=== PATIENT | female | born 1990 | race Caucasian/White ===

== ENCOUNTER → 2018-06-10 13:16 | Outpatient (CLI) | payer OTHER, SELFPAY ==
[2018-06-10 13:20] LABS: Adenovirus,PCR Not Detected (NotDetected); Bordetella Pertussis Not Detected (NotDetected); Chlamydophila Pneumoniae, PCR Not Detected (NotDetected); Coronavirus 229E Not Detected (NotDetected); Coronavirus NL63 Not Detected (NotDetected); Coronavirus OC43 Not Detected (NotDetected); Coronovirus HKU1,PCR Not Detected (NotDetected); Human Metapneumovirus Not Detected (NotDetected); Influenza A, PCR Not Detected (NotDetected); Influenza AH1, 2009 Not Detected (NotDetected); Influenza AH1, PCR Not Detected (NotDetected); Influenza AH3,PCR Not Detected (NotDetected); Influenza B, PCR Not Detected (NotDetected); Microscopic, Urine URINE MICROSCOPIC (MICROSCOPIC); Mycoplasma Pneumoniae, PCR Not Detected (NotDetected); Parainfluenza 1, PCR Not Detected (NotDetected); Parainfluenza 2, PCR Not Detected (NotDetected); Parainfluenza 3, PCR Not Detected (NotDetected); Parainfluenza 4, PCR Not Detected (NotDetected); Respiratory Syncytial Virus Not Detected (NotDetected); Rhinovirus/Enterovirus Not Detected (NotDetected)
[2018-06-10 13:41] LABS: Appearance,Urine CLEAR (Clear); Bilirubin,Urine Negative (Negative); Blood, Urine Negative (Negative); Color,Urine YELLOW (Yellow); Glucose,Urine (UA) Negative (Negative); Ketones,Urine Negative (Negative); Leukocyte Esterase,Urine Negative (Negative); Nitrate,Urine Negative (Negative); PH,Urine 6.5 (5.0-8.5); Protein,Urine Negative (Negative); Specific Gravity, Urine 1.015 (1.005-1.030); Urobilinogen,Urine 0.2 EU/dl (0.2)
[2018-06-10 13:43] LABS: Basophils % 0.3 % (0.1-2.0); Eosinophils # 0.2 K/mm3 (0.0-0.4); Eosinophils % 1.5 % (0.1-12.0); Hematocrit 38.4 % (37.0-47.0); Hemoglobin 12.8 g/dL (12.2-16.2); Lymphocytes # 1.4 K/mm3 (0.7-4.5); Lymphocytes % 11.2 % (10-50); Mean Corpuscular HGB Conc 33.4 g/dL (31.8-35.4); Mean Corpuscular Volume 83.8 fl (81-99); Mean Platelet Volume 6.7 fl (7.4-10.4); Monocytes # 0.4 K/mm3 (0.1-1.0); Neutrophils # 10.6 K/mm3 (1.8-7.8); Neutrophils % 83.9 % (37.0-80.0); Platelet Count 286 K/mm3 (142-424); Red Blood Count 4.58 M/mm3 (4.20-5.40); Red Cell Distribution Width 13.3 % (11.5-17.5); White Blood Count 12.7 K/mm3 (4.8-10.8)
[2018-06-10 13:48] LABS: Monoscreen (Rapid) Negative (Negative)
[2018-06-10 14:07] LABS: Bacteria,Urine Trace /lpf
[2018-06-10 14:21] LABS: Alanine Aminotransferase 28 U/L (12-78); Albumin Level 3.4 gm/dL (3.4-5.0); Albumin/Globulin Ratio 0.9 (1.1-1.8); Alkaline Phosphatase 71 U/L (46-116); Anion Gap 18.8 mEq/L (5-15); Aspartate Amino Transferase 13 U/L (15-37); Bilirubin,Total 0.3 mg/dL (0.2-1.0); Blood Urea Nitrogen 8 mg/dL (7-18); Calcium 8.6 mg/dL (8.5-10.1); Carbon Dioxide 20 mmol/L (21.0-32.0); Chloride 100 mmol/L (98-107); Creatinine,Serum 0.81 mg/dL (0.55-1.02); Estimated Glomerular Filt Rate 85 ml/min (>60); GFR (African American) 103 ML/MIN (>60); Globulin 3.9 gm/dl (1.3-3.2); Glucose 118 mg/dL (74-106); Potassium 3.8 mmoL/L (3.5-5.1); Sodium 135 mmol/L (136-145); Total Protein,Serum 7.3 gm/dL (6.4-8.2)
== END ==
PROVIDERS: Visit Provider Nurse Practitioner Family
DX: R50.9 Fever, unspecified (principal); N39.0 Urinary tract infection, site not specified; J06.9 Acute upper respiratory infection, unspecified
CPT/HCPCS: 36415; 80053; 81001; 85025; 86318; 87486; 87581; 87633; 87798

== ENCOUNTER → 2018-06-26 18:14 | Outpatient (CLI) | payer OTHER, SELFPAY ==
[2018-06-26 21:13] LABS: Amphetamine/Metha Screen,Urine Negative ng/mL (<1000); Barbiturates Screen,Urine Negative ng/mL (<200); Benzodiazepines Screen,Urine Negative ng/mL (<200); Cannabinoid Screen,Urine Negative ng/mL (<50); Cocaine Screen,Urine Negative ng/mL (<300); Methadone Screen,Urine Negative ng/mL (<300); Opiate Screen,Urine Negative ng/mL (<300); Phencyclidine Screen,Urine Negative ng/mL (<25)
[2018-06-29 13:59] LABS: Buprenorphine, Urine Negative ng/mL (Cutoff=10)
== END ==
PROVIDERS: Visit Provider Nurse Practitioner Obstetrics & Gynecology
DX: Z3A.11 11 weeks gestation of pregnancy (principal)
CPT/HCPCS: 80305; 80307

== ENCOUNTER 2018-08-11 03:51 | Observation (INO) ==
[2018-08-11 04:25] LABS: Basophils # 0.1 K/mm3 (0-0.2); Basophils % 0.4 % (0.1-2.0); Eosinophils # 0.2 K/mm3 (0.0-0.4); Eosinophils % 1.4 % (0.1-12.0); Hematocrit 34.6 % (37.0-47.0); Hemoglobin 11.8 g/dL (12.2-16.2); Lymphocytes # 3.1 K/mm3 (0.7-4.5); Lymphocytes % 21.6 % (10-50); Mean Corpuscular HGB Conc 34.2 g/dL (31.8-35.4); Mean Corpuscular Hemoglobin 27.8 pg (27.0-31.2); Mean Corpuscular Volume 81.2 fl (81-99); Mean Platelet Volume 6.4 fl (7.4-10.4); Monocytes # 0.6 K/mm3 (0.1-1.0); Monocytes % 4.3 % (1.7-9.3); Neutrophils # 10.5 K/mm3 (1.8-7.8); Neutrophils % 72.3 % (37.0-80.0); Platelet Count 326 K/mm3 (142-424); Red Blood Count 4.26 M/mm3 (4.20-5.40); Red Cell Distribution Width 13.4 % (11.5-17.5); White Blood Count 14.5 K/mm3 (4.8-10.8)
--- NOTE | 2018-08-11 08:25 | History & Physical Report ---
OB - H&P: HPI Antepartum - History of Present Illness Chief complaint: Vaginal bleeding, cramps, placenta previa History of present illness: She is a 27-year-old 3 para 2 at 18 weeks gestational age. She has been having bleeding for the last 3 weeks and began having heavier bleeding in the middle of the night. She has been experiencing severe cramps every 1 minute as well since about 4 AM. As a result of that she came into labor and delivery. She has been followed at [facility] for placenta previa. - History of Present Criteria for establishing EDC:: LMP confirmed by 1st trimester US care: good care Ultrasounds: normal 1st trimester US Obstetrical complications: other (Placenta previa, retained Mirena IUD) [facility] History I have reviewed the patient's past medical history: Yes Medical History: Reports:: Kidney Stones, Urinary Tract Infection Have you ever received a pneumonia vaccine?: No Have you received a flu vaccine this season?: Yes Laterality Cases: Bilateral: Tonsillectomy Other Surgeries: Yes: Diagnostic Lap. No: Amputation: No Fractures: Yes - *Social History Smoking Status: Never smoker Alcohol Intake: never Substance Use Type: denies use Occupational Status: employed Housing: house Household Members: family *Family Hx:: No significant family history Para: 2 Meds Home Medications Medication Instructions Recorded Confirmed Type Pnv Cmb#21/Iron/Folic Acid 1 each PO DAILY 06/08/18 08/11/18 History [ Complete Caplet] Terconazole 1 appful VAGINAL QHS 08/11/18 08/11/18 History Allergies Allergy/AdvReac Type Severity Reaction Status Date / Time erythromycin base Allergy Unknown -- Verified 07/30/18 08:56 OB - H&P: Exam - Physical Exam Vital signs: Temp Pulse Resp BP Pulse Ox 97.8 F 88 20 139/108 H 97 08/11/18 04:30 08/11/18 04:30 08/11/18 04:30 08/11/18 04:30 08/11/18 04:30 - Constitutional no acute distress - Routine HEENT Exam Head: Present: normocephalic Eye: Present: EOMI, PERRL ENT: Present: mucous membranes moist - Routine Neck Exam Present: supple, full ROM - Routine Respiratory Exam Absent: accessory muscle use (good air entry bilaterally), respiratory distress, wheezes, crackles - Routine Cardiovascular Exam Present: RRR. Absent: murmur - Routine Abdominal Exam Present: soft, normoactive bowel sounds. Absent: tenderness, distended, guarding - Routine Rectal Exam Patient deferred: visual exam, digital exam - Routine Exam Patient deferred: external exam, groin exam, perineal exam - Routine Extremities Exam Present: full ROM. Absent: cyanosis, edema - Routine Skin Exam Present: intact. Absent: cyanosis - Routine Neurological Exam Present: alert, oriented X3 - Routine Psychiatric Exam Present: normal affect OB - Results - Labs Labs: Short CBC 08/11/18 Range/Units 04:10 WBC 14.5 H (4.8-10.8) K/mm3 Hgb 11.8 L (12.2-16.2) g/dL Hct 34.6 L (37.0-47.0) % Plt Count 326 (142-424) K/mm3 OB - A/P Antepartum (1) Antepartum bleeding, second trimester Current visit: Yes Status: Acute (2) Placenta previa antepartum in second trimester Current visit: Yes Status: Acute (3) labor in second trimester without delivery Current visit: Yes Status: Acute - Additional Plan Planning to breastfeed?: Yes Plan: expectant management Additional Information:: She came in with increased vaginal bleeding as result of her placenta previa. T he bleeding has now somewhat settled. She has had bleeding for about 3 weeks. She has received Brethine for contractions and this seemed to help. She also received some Stadol which help with her discomfort. We will plan to observe her for the next 24 hours and see how she does. We have an ultrasound ordered for this morning as well.
[2018-08-11 11:48] LABS: Microscopic, Urine URINE MICROSCOPIC (MICROSCOPIC)
[2018-08-11 12:15] LABS: Appearance,Urine CLEAR (Clear); Bilirubin,Urine Negative (Negative); Blood, Urine 3+ (Negative); Color,Urine YELLOW (Yellow); Glucose,Urine (UA) Negative (Negative); Ketones,Urine Negative (Negative); Leukocyte Esterase,Urine 2+ (Negative); Protein,Urine Negative (Negative); Specific Gravity, Urine <= 1.005 (1.005-1.030); Urobilinogen,Urine 0.2 EU/dl (0.2)
[2018-08-11 12:33] LABS: Bacteria,Urine 3+ /lpf; WBC,Urine 20-50 #/hpf (0-3)
[2018-08-11 23:40] VITALS: BP 119/79
--- NOTE | 2018-08-12 08:13 | Discharge Summary ---
General - General Admission date:: 08/11/18 Discharge date: 08/12/18 HPI HPI: A 27-year-old 3 para 2 at 18 weeks who has placenta previa. She was having bleeding and as a result of that was admitted for observation. Hospital Course Hospital Course: She was having bleeding and contractions and received Brethine. We continue to watch her and the bleeding continues however just a small amount. Ultrasound showed that the baby had showed normal growth with the placenta marginal but away from the cervical os. She has an appointment with [facility] this morning. Objective Vital signs: Temp Pulse Resp BP Pulse Ox 98.0 F 89 18 119/79 97 08/11/18 20:11 08/11/18 20:11 08/11/18 20:11 08/11/18 20:11 08/11/18 20:11 no acute distress Results Labs on day of discharge: Labs from last 24 hours 08/11/18 07:45 Urine Color Yellow Urine Appearance Clear Urine pH 7.0 Ur Specific [place] <= 1.005 Urine Protein Negative Urine Glucose (UA) Negative Urine Ketones Negative Urine Blood 3+ Urine Nitrate Negative Urine Bilirubin Negative Urine Urobilinogen 0.2 Ur Leukocyte Esterase 2+ A Urine RBC 10-20 Urine WBC 20-50 Ur Squamous Epith Cells 3-5 Urine Bacteria 3+ DS: Diagnosis - Discharge Diagnosis (1) Antepartum bleeding, second trimester Status: Acute (2) Placenta previa antepartum in second trimester Status: Acute (3) labor in second trimester without delivery Status: Acute Discharge Plan - Patient Discharge Instructions ACTIVITY: No heavy lifting DIET: continue same diet - Follow up Plan Disposition: Home, Self-Snf Medications: Home Medications Medication Instructions Recorded Confirmed Type Pnv Cmb#21/Iron/Folic Acid 1 each PO DAILY 06/08/18 08/11/18 History [ Complete Caplet] Terconazole 1 appful VAGINAL QHS 08/11/18 08/11/18 History Prescriptions/Medication Reconciliation: Continue Terconazole 1 appful VAGINAL QHS Pnv Cmb#21/Iron/Folic Acid [ Complete Caplet] 1 each PO DAILY
== END 2018-08-12 09:15 | disposition home or self-care (01) ==
LOC: OB 03:51 → OBOUT 03:51 → OB 03:59
PROVIDERS: ADMIT Nurse Practitioner Obstetrics & Gynecology; ATTEND Nurse Practitioner Obstetrics & Gynecology
CPT/HCPCS: 76805; 81001; 85025; 86850; 87086; 96360; 96372; G0378; J0595

== ENCOUNTER 2018-08-19 18:45 | Observation (INO) ==
--- NOTE | 2018-08-19 19:40 | History & Physical Report ---
OB - H&P: HPI Antepartum - History of Present Illness Chief complaint: Oligohydramnios, placenta previa, delivery History of present illness: She is a 27-year-old 3 para 2 who is 19 weeks gestation. She had a Mirena IUD inserted a urine test is negative. It was felt that she was just a few days when the IUD was inserted. To remove the IUD a few weeks later when we found out that she would. However the strings were not with and the IUD on ultrasound was as of the uterus. As a result of that we elected to have it in place. We had a consult at [facility] and they attempted to remove the IUD and were not successful. She separately had placenta previa and vaginal bleeding. It was noted that she had a low fluid last week and was admitted to the [facility] as a second opinion. They also felt that the membranes had ruptured. The fetus was in the breech presentation. Tonight she felt some thing in the vagina and on arrival here at the hospital the fetus' body and legs were noted to be outside the vagina. - History of Present Criteria for establishing EDC:: LMP confirmed by 1st trimester US care: good care Ultrasounds: normal 1st trimester US Obstetrical complications: other - Labs Blood type: O (+) positive [facility] History I have reviewed the patient's past medical history: Yes Medical History: Reports:: Kidney Stones, Urinary Tract Infection Have you ever received a pneumonia vaccine?: No Have you received a flu vaccine this season?: No Laterality Cases: Bilateral: Tonsillectomy Other Surgeries: Yes: Diagnostic Lap. No: Amputation: No Fractures: Yes - *Social History Smoking Status: Never smoker Alcohol Intake: never Substance Use Type: denies use Occupational Status: employed Housing: house Household Members: family Family Hx:: No significant family history Meds Home Medications Medication Instructions Recorded Confirmed Type Pnv Cmb#21/Iron/Folic Acid 1 each PO DAILY 06/08/18 08/11/18 History [ Complete Caplet] Terconazole 1 appful VAGINAL QHS 08/11/18 08/11/18 History azithromycin 250 mg tablet 250 mg PO DAILY #36 tab 08/12/18 Rx nitrofurantoin macrocrystal 100 mg 100 mg PO BID #20 cap 08/12/18 Rx capsule Allergies Allergy/AdvReac Type Severity Reaction Status Date / Time erythromycin base Allergy Unknown -- Verified 07/30/18 08:56 OB - H&P: Exam - Constitutional no acute distress - Routine HEENT Exam Head: Present: normocephalic Eye: Present: EOMI, PERRL ENT: Present: mucous membranes moist - Routine Neck Exam Present: supple, full ROM - Routine Respiratory Exam Absent: accessory muscle use (good air entry bilaterally), respiratory distress, wheezes, crackles - Routine Cardiovascular Exam Present: RRR. Absent: murmur - Routine Abdominal Exam Present: soft, normoactive bowel sounds. Absent: tenderness, distended, guarding - Routine Rectal Exam Patient deferred: visual exam, digital exam - Routine Exam Patient deferred: external exam, groin exam, perineal exam - Routine Extremities Exam Present: full ROM. Absent: cyanosis, edema - Routine Skin Exam Present: intact. Absent: cyanosis - Routine Neurological Exam Present: alert, oriented X3 - Routine Psychiatric Exam Present: normal affect OB - A/P Antepartum (1) delivery without spontaneous labor Current visit: Yes Status: Acute (2) Antepartum bleeding, second trimester Current visit: No Status: Acute (3) Placenta previa antepartum in second trimester Current visit: No Status: Acute (4) Vaginal bleeding before 22 weeks gestation Current visit: No Status: Acute - Additional Plan Planning to breastfeed?: No Plan: induction Additional Information:: On arrival at the hospital the legs were outside the vagina. She will receive the oxytocin to deliver the rest of the 's body.
--- NOTE | 2018-08-19 19:46 | Procedure Note ---
- Delivery Note Delivery Date:: 08/19/18 Delivery Time:: 19:25 Anesthesia Type: None Was labor medically induced?: No Induction method: none Infant delivered prior to 39 weeks?: Yes Justification for early elective delivery:: Demise Gender: Male at 1 minute: 0 at 5 minutes: 0 Suction Catheter Type: Sterile Catheter Delivery Procedure:: She came into the hospital with spontaneous delivery of the body. She subsequently received IV oxytocin and then spontaneously delivered the head. The fetus was extremely small. There was no movement or heart rate activity. This consistent with a 19-week fetus. We are awaiting the delivery of the placenta.
[2018-08-20 06:45] LABS: Hematocrit 32.7 % (37.0-47.0); Hemoglobin 11.2 g/dL (12.2-16.2)
[2018-08-20 08:33] VITALS: BP 114/70
--- NOTE | 2018-08-20 10:20 | Progress Note ---
Internal Medicine - PN: Subj *Date: 08/20/18 *Time: 10:19 Interval history: She is doing well this morning. Her lochia is normal. Exam Vital signs and Labs for Last 24 Hours: Temp Pulse Resp BP Pulse Ox 98.5 F 80 18 114/70 96 08/20/18 08:32 08/20/18 08:32 08/20/18 08:32 08/20/18 08:32 08/20/18 08:32 Laboratory Results - last 24 hr 08/20/18 06:12: Hgb 11.2 L, Hct 32.7 L I & O for Last 24 hours: Intake & Output 08/17/18 08/18/18 08/19/18 08/20/18 11:59 11:59 11:59 11:59 Weight 209 lb - Constitutional no acute distress Assessment and Plan (1) delivery without spontaneous labor Current visit: Yes Status: Acute Category: Medical Code(s): O60.10X0 - labor with delivery, unspecified trimester, not applicable or unspecified (2) Antepartum bleeding, second trimester Current visit: No Status: Acute Category: Medical Code(s): O46.92 - Antepartum hemorrhage, unspecified, second trimester (3) Placenta previa antepartum in second trimester Current visit: No Status: Acute Category: Medical Code(s): O44.02 - Complete placenta previa NOS or without hemorrhage, second trimester (4) Vaginal bleeding before 22 weeks gestation Current visit: No Status: Acute Category: Medical Code(s): O20.9 - Hemorrhage in early , unspecified - Assessment and plan all Dx Assessment and Plan for all problems:: We will get an ultrasound to make sure that she has passed all the products of conception. We will check the location IUD. We will plan to remove this in a couple of weeks. Discharged home later today. She has been receiving IV Ancef to prevent infection.
--- NOTE | 2018-08-20 13:46 | Discharge Summary ---
General - General Admission date:: August 19, 2018 Discharge date: 08/20/18 HPI HPI: She is a 27-year-old 3 para 2 now aborta 1 who was 18 weeks gestational age. She had placenta previa as well as an IUD placed. She found out that she was a few weeks after the IUD was placed. We felt that she was just a few days when the IUD was inserted. She is apparently had placenta previa and has been bleeding for the last few weeks. The IUD was also in place. She had low fluid last week and it was felt that she had ruptured her membranes. Hospital Course Hospital Course: Last night she came in and thought that she could feel the baby's cord in the vagina. She actually was feeling the baby's feet and the fetus had extruded through the cervix to the head. We then started IV oxytocin and she delivered the rest of the infant's body. The fetus was stillborn. It was about 18 weeks in size. She then subsequently received more IV oxytocin and delivered the placenta intact. She has remained afebrile throughout her hospitalization. We did a transvaginal as well as abdominal ultrasound today and we did not see the IUD within the uterine cavity. I suspect it was extruded during the birthing process. We will however repeat her ultrasound again in a couple of weeks and also consider an x-ray as well. She will follow-up with me in 2 weeks time. She has received IV antibiotics while in labor. As well as . She has azithromycin at home and will take 2 more days worth of this as well. Objective Vital signs: Temp Pulse Resp BP Pulse Ox 98.5 F 80 18 114/70 96 08/20/18 08:32 08/20/18 08:32 08/20/18 08:32 08/20/18 08:32 08/20/18 08:32 no acute distress Results Labs on day of discharge: Labs from last 24 hours 08/20/18 06:12 Hgb 11.2 L Hct 32.7 L DS: Diagnosis - Discharge Diagnosis (1) delivery without spontaneous labor Status: Acute (2) Antepartum bleeding, second trimester Status: Acute (3) Placenta previa antepartum in second trimester Status: Acute (4) Vaginal bleeding before 22 weeks gestation Status: Acute Discharge Plan - Patient Discharge Instructions ACTIVITY: No heavy lifting DIET: continue same diet - Follow up Plan Disposition: Home, Self-Assisted Medications: Home Medications Medication Instructions Recorded Confirmed Type Pnv Cmb#21/Iron/Folic Acid 1 each PO DAILY 06/08/18 08/11/18 History [ Complete Caplet] Terconazole 1 appful VAGINAL QHS 08/11/18 08/11/18 History azithromycin 250 mg tablet 250 mg PO DAILY #36 tab 08/12/18 Rx nitrofurantoin macrocrystal 100 mg 100 mg PO BID #20 cap 08/12/18 Rx capsule Oxycodone HCl/Acetaminophen 1 - 2 tab PO Q4-6H PRN #14 tab 08/20/18 Rx [Percocet 5/325mg tablet] Prescriptions/Medication Reconciliation: New Oxycodone HCl/Acetaminophen [Percocet 5/325mg tablet] 1 - 2 tab PO Q4-6H PRN #14 tab PRN Reason: Severe Pain Continue azithromycin 250 mg tablet 250 mg PO DAILY #36 tab nitrofurantoin macrocrystal 100 mg capsule 100 mg PO BID #20 cap Terconazole 1 appful VAGINAL QHS Pnv Cmb#21/Iron/Folic Acid [ Complete Caplet] 1 each PO DAILY
== END 2018-08-20 14:00 | disposition home or self-care (01) ==
LOC: OB 18:45 → OBOUT 18:45 → OB 18:47
PROVIDERS: ADMIT Nurse Practitioner Obstetrics & Gynecology; ATTEND Nurse Practitioner Obstetrics & Gynecology
CPT/HCPCS: 36415; 76830; 85014; 85018; G0378

== ENCOUNTER → 2019-11-10 16:28 | Outpatient (CLI) | payer MEDICAID, SELFPAY ==
[2019-11-13 11:28] LABS: Neisseria gonorrhoeae, NAA Negative (Negative)
== END ==
PROVIDERS: Visit Provider Nurse Practitioner Obstetrics & Gynecology
DX: R10.2 Pelvic and perineal pain (principal); Z72.51 High risk heterosexual behavior
CPT/HCPCS: 87491; 87591

== ENCOUNTER → 2019-12-08 11:56 | Outpatient (CLI) | payer MEDICAID, SELFPAY ==
[2019-12-08 13:27] LABS: HCG,Quantitative < 2 mIU/ml (0-5.42)
== END ==
PROVIDERS: Visit Provider Nurse Practitioner Obstetrics & Gynecology
DX: Z34.90 Encounter for supervision of normal pregnancy, unspecified, unspecified trimester (principal)
CPT/HCPCS: 36415; 84702

== ENCOUNTER → 2020-02-19 15:53 | Outpatient (CLI) | payer BC, MEDICAID, SELFPAY ==
[2020-02-19 17:26] LABS: Coronavirus 19 IgG Antibody Negative (Negative); Coronavirus 19 IgM Antibody Negative (Negative)
== END ==
PROVIDERS: PCP Internal Medicine Adolescent Medicine; Visit Provider Nurse Practitioner Family
DX: Z03.818 Encounter for observation for suspected exposure to other biological agents ruled out (principal)
CPT/HCPCS: 36415; 86328

== ENCOUNTER → 2020-03-05 15:15 | Outpatient (CLI) | payer BC, MEDICAID, SELFPAY ==
[2020-03-05 17:54] LABS: Coronavirus 19 IgG Antibody Negative (Negative); Coronavirus 19 IgM Antibody Negative (Negative)
[2020-03-07 17:18] LABS: Covid-19 Nasal PCR Sendout UK Not Detected
== END ==
PROVIDERS: Nurse Practitioner Family; PCP Nurse Practitioner Family; Visit Provider Nurse Practitioner Family
DX: Z03.818 Encounter for observation for suspected exposure to other biological agents ruled out (principal)
CPT/HCPCS: 86328; U0003

== ENCOUNTER → 2020-03-19 16:58 | Outpatient (CLI) | payer BC, MEDICAID, SELFPAY | PROVIDERS: Visit Provider Nurse Practitioner Obstetrics & Gynecology | DX: N39.0 Urinary tract infection, site not specified (principal) | CPT/HCPCS: 87086 ==

== ENCOUNTER → 2020-04-03 12:18 | Outpatient (CLI) | payer BC, MEDICAID, SELFPAY ==
[2020-04-03 12:50] VITALS: BP 117/73; PULSE 77; RESP 16; TEMP 36.8; O2SAT 95
== END ==
PROVIDERS: PCP Internal Medicine Adolescent Medicine; Visit Provider Internal Medicine Adolescent Medicine
DX: N93.9 Abnormal uterine and vaginal bleeding, unspecified (principal); R10.2 Pelvic and perineal pain
CPT/HCPCS: 96372

== ENCOUNTER → 2020-06-11 12:57 | Outpatient (CLI) | payer BC, MEDICAID, SELFPAY ==
[2020-06-11 19:35] LABS: Coronavirus 19 IgG Antibody Negative (Negative); Coronavirus 19 IgM Antibody Negative (Negative)
== END ==
PROVIDERS: PCP Nurse Practitioner Family; Visit Provider Nurse Practitioner Family
DX: Z03.818 Encounter for observation for suspected exposure to other biological agents ruled out (principal)
CPT/HCPCS: 36415; 86328

== ENCOUNTER 2020-09-26 17:37 | Emergency (ER) | payer BC, MEDICAID, SELFPAY ==
[2020-09-26 17:49] VITALS: BP 00/00; PULSE 0; RESP 0; TEMP -17.7; TEMP 0
== END 2020-09-26 17:52 | disposition left against medical advice (07) ==
LOC: UTC 17:41
PROVIDERS: Emergency Provider Nurse Practitioner; PCP Internal Medicine Adolescent Medicine
DX: Z20.822 Contact with and (suspected) exposure to COVID-19 (principal)

== ENCOUNTER → 2020-09-27 17:33 | Outpatient (CLI) | payer BC, SELFPAY | PROVIDERS: PCP Internal Medicine Adolescent Medicine; Visit Provider Plastic Surgery | DX: Z01.818 Encounter for other preprocedural examination (principal); Z20.822 Contact with and (suspected) exposure to COVID-19 | CPT/HCPCS: U0003 ==

== ENCOUNTER → 2021-02-18 11:46 | Outpatient (CLI) | payer BC, SELFPAY ==
--- NOTE | 2021-02-18 11:50 | XR_ITS ---
PROCEDURE: XR SACRUM COCCYX MIN 2V CLINICAL INDICATION: COCCYX PAIN COMPARISON: CT ABDPELW/O CT ABD PELVIS W/O CONTRAST from 02/12/2013 FINDINGS: No fracture or dislocation. No lytic or blastic change. There is normal mineralization. The joint spaces are well-preserved. No significant degenerative/arthritic changes. No erosive changes evident. Other findings:None. IMPRESSION: No acute findings. Dictated by: Tc Colorado MD 02/18/2021 12:09 Tc Colorado MD in [facility] 02/18/2021 12:09
== END ==
PROVIDERS: PCP Internal Medicine Adolescent Medicine; Visit Provider Internal Medicine Adolescent Medicine
DX: M53.3 Sacrococcygeal disorders, not elsewhere classified (principal)
CPT/HCPCS: 72220

== ENCOUNTER → 2021-06-21 09:00 | Outpatient (CLI) | payer BC, SELFPAY | PROVIDERS: Visit Provider Nurse Practitioner Family | DX: R30.0 Dysuria (principal); B96.20 Unspecified Escherichia coli [E. coli] as the cause of diseases classified elsewhere | CPT/HCPCS: 87086; 87088; 87186 ==

== ENCOUNTER → 2021-11-04 11:38 | Outpatient (CLI) | payer BC, SELFPAY ==
[2021-11-04 13:32] LABS: Thyroid Stimulating Hormone 1.46 uIU/mL (0.465-4.68)
[2021-11-04 14:46] LABS: Basophils # 0.2 K/mm3 (0-0.2); Basophils % 2.2 % (0.1-2.0); Eosinophils # 0.2 K/mm3 (0.0-0.4); Eosinophils % 2.2 % (0.1-12.0); Lymphocytes # 2.9 K/mm3 (0.7-4.5); Lymphocytes % 29.2 % (10-50); Mean Corpuscular HGB Conc 32.5 g/dL (31.8-35.4); Mean Corpuscular Hemoglobin 27.1 pg (27.0-31.2); Mean Corpuscular Volume 83.3 fl (81-99); Mean Platelet Volume 7.6 fl (7.4-10.4); Monocytes # 0.5 K/mm3 (0.1-1.0); Neutrophils # 6.2 K/mm3 (1.8-7.8); Neutrophils % 61.4 % (37.0-80.0); Platelet Count 290 K/mm3 (142-424); Red Cell Distribution Width 14.2 % (11.5-17.5)
[2021-11-13 21:08] LABS: 1,25 Dihydroxy Vitamin D 42 pg/mL (.); 1,25-Dihydroxy, Vitamin D-2 <10 pg/mL (.); 1,25-Dihydroxy, Vitamin D-3 42 pg/mL (.)
== END ==
PROVIDERS: Visit Provider Obstetrics & Gynecology
DX: N80.9 Endometriosis, unspecified (principal); N93.9 Abnormal uterine and vaginal bleeding, unspecified; R53.82 Chronic fatigue, unspecified; E66.9 Obesity, unspecified; Z68.39 Body mass index [BMI] 39.0-39.9, adult
CPT/HCPCS: 36415; 82652; 84443; 85025

== ENCOUNTER → 2021-12-02 11:40 | Outpatient (CLI) | payer BC, SELFPAY ==
[2021-12-02 12:53] LABS: Hemoglobin A1C 5.5 % (4.0-6.0)
== END ==
PROVIDERS: PCP Internal Medicine Adolescent Medicine; Visit Provider Obstetrics & Gynecology
DX: R81 Glycosuria (principal)
CPT/HCPCS: 36415; 83036

== ENCOUNTER → 2023-02-08 12:12 | Outpatient (CLI) | payer BC, SELFPAY ==
[2023-02-08 12:42] LABS: Basophils # 0.1 K/mm3 (0-0.2); Basophils % 0.8 % (0.1-2.0); Eosinophils # 0.2 K/mm3 (0.0-0.4); Eosinophils % 1.7 % (0.1-12.0); Hematocrit 40.6 % (37.0-47.0); Hemoglobin 13.2 g/dL (12.2-16.2); Lymphocytes # 2.4 K/mm3 (0.7-4.5); Lymphocytes % 26.9 % (10-50); Mean Corpuscular HGB Conc 32.6 g/dL (31.8-35.4); Mean Corpuscular Volume 79.9 fl (81-99); Mean Platelet Volume 7.4 fl (7.4-10.4); Monocytes # 0.4 K/mm3 (0.1-1.0); Monocytes % 4.7 % (1.7-9.3); Neutrophils # 5.8 K/mm3 (1.8-7.8); Platelet Count 289 K/mm3 (142-424); Red Blood Count 5.08 M/mm3 (4.20-5.40); Red Cell Distribution Width 13.8 % (11.5-17.5); White Blood Count 8.9 K/mm3 (4.8-10.8)
[2023-02-08 13:32] LABS: Alanine Aminotransferase 26 U/L (12-78); Albumin Level 4.3 g/dl (3.5-5.0); Albumin/Globulin Ratio 1.6 (1.1-1.8); Alkaline Phosphatase 107 U/L (38-126); Anion Gap 10.6 mEq/L (5-15); Aspartate Amino Transferase 23 U/L (14-36); Bilirubin,Total 0.6 mg/dl (0.2-1.3); Blood Urea Nitrogen 11 mg/dl (7-17); Calcium 9.1 mg/dl (8.4-10.2); Carbon Dioxide 28 mmol/L (22.0-30.0); Chloride 105 mmol/L (98-107); Chol/HDL Ratio 3.8 (1-3.5); Cholesterol 180 mg/dl (140-200); Estimated Glomerular Filt Rate 83 ml/min (>60); GFR (African American) 101 ML/MIN (>60); Globulin 2.7 g/dL (1.3-3.2); Glucose 95 mg/dl (74-100); HDL Cholesterol 48 mg/dl (40-60); Potassium 4.6 mmoL/L (3.5-5.1); Sodium 139 mmol/L (136-145); Triglycerides 160 mg/dl (30-150); VLDL Cholesterol 32 mg/dL (0-40)
[2023-02-08 13:49] LABS: Direct LDL Cholesterol 105.28 mg/dL (100-129)
[2023-02-08 13:53] LABS: Hemoglobin A1C 5.4 % (4.0-6.0)
[2023-02-08 14:03] LABS: Thyroid Stimulating Hormone 0.58 uIU/mL (0.465-4.68)
[2023-02-09 08:18] LABS: FSH 4.7 mIU/mL (.); LH 5.3 mIU/mL (.)
== END ==
PROVIDERS: PCP Internal Medicine Adolescent Medicine; Visit Provider Nurse Practitioner Family
DX: Z00.00 Encounter for general adult medical examination without abnormal findings (principal); R53.83 Other fatigue; R73.9 Hyperglycemia, unspecified; N92.1 Excessive and frequent menstruation with irregular cycle
CPT/HCPCS: 36415; 80053; 80061; 82670; 83001; 83002; 83036; 84443; 85025

== ENCOUNTER 2023-03-12 14:25 | Emergency (ER) | payer BC, SELFPAY ==
[2023-03-12] VITALS (11 sets, daily range): BP systolic 92–126; BP diastolic 47–90; PULSE 68–105; RESP 18–20; TEMP 36.8–37.2; O2SAT 96–98; BMI 39.1
[2023-03-12 14:52] LABS: Basophils # 0.1 K/mm3 (0-0.2); Basophils % 0.5 % (0.1-2.0); Eosinophils # 0.3 K/mm3 (0.0-0.4); Eosinophils % 2.2 % (0.1-12.0); Hematocrit 41.9 % (37.0-47.0); Lymphocytes # 2.5 K/mm3 (0.7-4.5); Lymphocytes % 21.8 % (10-50); Mean Corpuscular HGB Conc 33.3 g/dL (31.8-35.4); Mean Platelet Volume 7.6 fl (7.4-10.4); Monocytes # 0.5 K/mm3 (0.1-1.0); Monocytes % 4.4 % (1.7-9.3); Neutrophils # 8.2 K/mm3 (1.8-7.8); Platelet Count 299 K/mm3 (142-424); Red Blood Count 5.17 M/mm3 (4.20-5.40); Red Cell Distribution Width 13.8 % (11.5-17.5); White Blood Count 11.5 K/mm3 (4.8-10.8)
[2023-03-12 14:55] LABS: Microscopic, Urine URINE MICROSCOPIC (MICROSCOPIC)
[2023-03-12 15:00] LABS: Chloride 103 mmol/L (98-107); Sodium 139 mmol/L (136-145)
[2023-03-12 15:03] LABS: Alanine Aminotransferase 31 U/L (12-78); Albumin/Globulin Ratio 1.1 (1.1-1.8); Alkaline Phosphatase 99 U/L (38-126); Aspartate Amino Transferase 33 U/L (14-36); Bilirubin,Total 0.6 mg/dl (0.2-1.3); Blood Urea Nitrogen 12 mg/dl (7-17); Carbon Dioxide 26 mmol/L (22.0-30.0); Creatinine Clearance Estimated 161 mL/min (50-200); Estimated Glomerular Filt Rate 73 ml/min (>60); GFR (African American) 88 ML/MIN (>60); Globulin 3.5 g/dL (1.3-3.2); Total Protein,Serum 7.5 g/dl (6.3-8.2)
[2023-03-12 15:04] LABS: Calcium 9.4 mg/dl (8.4-10.2); Glucose 112 mg/dl (74-100)
[2023-03-12 15:05] LABS: HCG Qualitative, Serum Negative (Negative)
--- NOTE | 2023-03-12 15:07 | CT_ITS ---
PROCEDURE INFORMATION: Exam: CT Abdomen And Pelvis Without Contrast Exam date and time: 03/12/2023 3:19 PM Age: 32 years old Clinical indication: Abdominal pain; Additional info: R/O kidney stone TECHNIQUE: Imaging protocol: Computed tomography of the abdomen and pelvis without contrast. Radiation optimization: All CT scans at this facility use at least one of these dose optimization techniques: automated exposure control; mA and/or kV adjustment per patient size (includes targeted exams where dose is matched to clinical indication); or iterative reconstruction. REPORTING DATA: Count of CT and Cardiac NM exams in prior 12 months: This patient has received 0 known CTs and 0 known cardiac nuclear medicine studies in the 12 months prior to the current study. COMPARISON: XR SACRUM COCCYX MIN 2V 02/18/2021 11:53 AM FINDINGS: Limitations: The absence of intravenous contrast limits the assessment of vascular structures, lesions and lymphadenopathy. Lungs: Left lower lobe granuloma noted Liver: No focal hepatic lesions within the limits of noncontrast examination. Gallbladder and bile ducts: Normal. No calcified stones. No ductal dilation. Pancreas: No peripancreatic fluid stranding. No main pancreatic ductal dilation. Spleen: Multiple splenic granulomas. No splenomegaly. Adrenal glands: The adrenal glands are normal. Kidneys and ureters: Moderate right hydroureteronephrosis. There is a punctate calcification (series 3, image 114), the exact location is difficult to ascertain, but appears to be in the expected location of the ureteral course. Nonobstructive left nephrolithiasis. Stomach and bowel: Unremarkable. No obstruction. No mucosal thickening. Appendix: No evidence of appendicitis. Intraperitoneal space: There is no evidence of free intraperitoneal or pelvic fluid. Vasculature: Aorta is nonaneurysmal. Aorta is nonaneurysmal. Lymph nodes: No evidence of retroperitoneal or mesenteric lymphadenopathy. Urinary bladder: Urinary bladder is unremarkable. Reproductive: Unremarkable as visualized. Bones/joints: No acute osseous abnormality. Soft tissues: Unremarkable. IMPRESSION: Moderate right hydroureteronephrosis. There is a punctate calcification (series 3, image 114), the exact location is difficult to ascertain, but appears to be in the expected location of the ureteral course.
[2023-03-12 15:15] LABS: Bilirubin,Urine Negative (Negative); Blood, Urine 2+ (Negative); Color,Urine Yellow (Yellow); Glucose,Urine (UA) Negative (Negative); Ketones,Urine Negative (Negative); Leukocyte Esterase,Urine 2+ (Negative); Nitrate,Urine Negative (Negative); PH,Urine 7.5 (5.0-8.5); Protein,Urine 2+ (Negative); Urobilinogen,Urine 0.2 EU/dl (0.2)
[2023-03-12 15:16] LABS: Appearance,Urine Slightly Cloudy (Clear)
[2023-03-12 15:39] LABS: Squamous Epithelial Cell,Urine Occasional #/hpf (0-5)
[2023-03-12 15:40] LABS: Bacteria,Urine Trace /lpf
--- NOTE | 2023-03-12 16:01 | HMH.EDGENADL ---
Discharge Plan Disposition Patient Disposition: Home, Self-Care Condition: Fair Prescriptions Prescriptions: New tamsulosin [Flomax] 0.4 mg capsule 0.4 mg PO DAILY Qty: 3 0RF cefdinir 300 mg capsule 300 mg PO BID 10 Days Qty: 20 0RF No Action paroxetine HCl 40 mg tablet PO trazodone 100 mg tablet PO hydroxyzine HCl 25 mg tablet 25 mg PO Patient Comments: TAKE 1 TABLET BY MOUTH EVERY 6 HOURS NEEDED bupropion HCl 150 mg tablet extended release 24 hr 150 mg PO medroxyprogesterone [Depo-Provera] 150 mg/mL syringe 150 mg IM [id number] Qty: 1 3RF tolterodine 2 mg capsule,extended release 24hr 2 mg PO ciprofloxacin HCl 500 mg tablet 500 mg PO phenazopyridine [Pyridium] 100 mg tablet 100 mg PO TID PRN Orilissa 150 mg tablet 150 mg PO DAILY medroxyprogesterone 150 mg/mL suspension 150 mg IM Referrals Follow up/Referrals: Win Vance MD [Primary Care Provider] - See instructions Activity Restrictions/Add. Instructions Additional Instructions/Restrictions: Return to the emergency department with any new, changing, worsening symptoms. Please follow-up with your urologist this week. Take Flomax as prescribed. Take antibiotics as prescribed. You may take Tylenol and ibuprofen for pain. Clinical Impressions Clinical Impression: Acute flank pain Instructions Patient Instructions: DI for Kidney Stones, DI for Urinary Tract Infection (UTI), DI for Acute Abdominal Pain Discharge ED Provider: Maged Alba General Adult HPI General Chief complaint: Abdominal Pain Stated complaint: kidney pain Time Seen by Provider: 03/12/23 14:53 Mode of Arrival: Ambulatory Source of Information: Patient Limitations: No Limitations Description of Symptoms (Recalled from ER Triage Doc. by RN): pt to ed c/o right sided flank pain that started this morning. pt reports a hx of kidney stones. pt states n/v throughout the day, denies diarrhea. History of Present Illness HPI narrative: Patient is a 32-year-old female with history of kidney stones presenting to the emergency department with flank pain. Patient reports that she has had 1 day of right-sided flank pain that radiates into her right groin. She endorses mild dysuria but no hematuria. No fevers. She does endorse nausea but no vomiting. Patient has had multiple kidney stones before requiring urological intervention. Related Data Home Medications Medication Instructions Recorded Confirmed paroxetine HCl 40 mg tablet mg PO 07/15/19 11/24/21 trazodone 100 mg tablet PO 07/15/19 11/24/21 hydroxyzine HCl 25 mg tablet 25 mg PO 03/19/20 11/24/21 bupropion HCl 150 mg 24 hr tablet, 150 mg PO 11/01/21 11/24/21 extended release medroxyprogesterone 150 mg/mL 150 mg IM 11/04/21 11/24/21 intramuscular suspension ciprofloxacin HCl 500 mg tablet 500 mg PO 11/24/21 11/24/21 elagolix 150 mg tablet (Orilissa) 150 mg PO DAILY 11/24/21 11/24/21 phenazopyridine 100 mg tablet 100 mg PO TID PRN 11/24/21 11/24/21 (Pyridium) tolterodine 2 mg capsule,extended 2 mg PO 11/24/21 11/24/21 release 24 hr Previous Rx's Medication Instructions Recorded medroxyprogesterone 150 mg/mL 150 mg IM [id number] #1 mL 11/01/21 intramuscular syringe (Depo-Provera) cefdinir 300 mg capsule 300 mg PO BID 10 days #20 caps 03/12/23 tamsulosin 0.4 mg capsule (Flomax) 0.4 mg PO DAILY #3 caps 03/12/23 Allergies Allergy/AdvReac Type Severity Reaction Status Date / Time erythromycin base Allergy Unknown -- Verified 11/24/21 13:56 [facility] Disclaimer: The information contained in this section may have been updated after the patient was seen, as this information can be updated by other users. Social History Smoking Status: Never smoker alcohol intake: current substance use type: denies use current occupational status: employed Travel in the
--- NOTE | 2023-03-12 18:35 | PC.NURSE ---
pt requesting nausea meds heard we had a code in progress stated she could wait.
--- NOTE | 2023-03-12 19:09 | PC.NURSE ---
rounded on patient, pain increased, reported to RN
== END 2023-03-12 20:25 | disposition home or self-care (01) ==
PROVIDERS: Emergency Medicine; Emergency Provider Emergency Medicine; PCP Internal Medicine Adolescent Medicine
DX: R10.9 Unspecified abdominal pain (principal); R10.2 Pelvic and perineal pain; R11.0 Nausea
CPT/HCPCS: 74176; 80053; 81001; 84703; 85025; 87086; 87088; 87186; 96361; 96374; 96375; 96376; 99285; J0131; J2405

== ENCOUNTER 2023-08-09 13:11 | Outpatient (CLI) | payer BC, SELFPAY ==
--- NOTE | 2023-08-09 13:12 | US_ITS ---
PROCEDURE: US TRANSVAGINAL CLINICAL INDICATION: ovarian cyst, pelvic pain COMPARISON: No exams were available for comparison FINDINGS: Transvaginal sonographic images of the pelvis were obtained. UTERUS: 7.7 cm x 5.4cmx 4.4cm anteverted with a combined endometrial thickness of 9.5mm. There is a small nabothian cyst in the cervix. LEFT OVARY: 3.9 cmx3.5 cmx3.2cm with a volume of 22.8ml. Within the left ovary there is a cystic structure measuring 2.7 cm x 2.3 cm. The fluid within the cyst has a ground-glass appearance as well as a few echogenic areas possibly consistent with a dermoid or endometrioma. RIGHT OVARY: 3.6 cmx 2.4cmx1.9 cm with a volume of 8.6ml. There are several small follicles the largest of which measures 0.95 cm Both ovaries are seen. Doppler flow to both ovaries are seen. There is no fluid in the cul-de-sac. IMPRESSION: 1. Anteverted uterus normal in shape and size. The endometrium appears normal. 2. The right ovary is seen and appears normal. There are several small follicles. 3. Within the left ovary is a cystic structure measuring 2.7 x 2.3 cm possibly consistent with a dermoid cyst or endometrioma. 4. No fluid in the cul-de-sac. Dictated by: Vance Turpin MD 08/09/2023 16:29 Vance Turpin MD in [facility] 08/09/2023 16:29
== END 2023-08-09 23:59 ==
LOC: RAD 13:12
PROVIDERS: PCP Internal Medicine Adolescent Medicine; Visit Provider Nurse Practitioner Obstetrics & Gynecology
DX: R10.2 Pelvic and perineal pain (principal); N83.202 Unspecified ovarian cyst, left side
CPT/HCPCS: 76830

== ENCOUNTER 2023-09-06 10:26 | Outpatient (CLI) | payer BC, SELFPAY ==
[2023-09-06 10:50] LABS: Basophils # 0.1 K/mm3 (0-0.2); Basophils % 1.4 % (0.1-2.0); Eosinophils # 0.2 K/mm3 (0.0-0.4); Hematocrit 41.3 % (37.0-47.0); Hemoglobin 13.5 g/dL (12.2-16.2); Lymphocytes # 2.1 K/mm3 (0.7-4.5); Lymphocytes % 27.4 % (10-50); Mean Corpuscular HGB Conc 32.7 g/dL (31.8-35.4); Mean Corpuscular Hemoglobin 27.9 pg (27.0-31.2); Mean Corpuscular Volume 85.2 fl (81-99); Mean Platelet Volume 7.8 fl (7.4-10.4); Monocytes # 0.4 K/mm3 (0.1-1.0); Monocytes % 4.5 % (1.7-9.3); Neutrophils % 64.8 % (37.0-80.0); Platelet Count 293 K/mm3 (142-424); Red Blood Count 4.85 M/mm3 (4.20-5.40); Red Cell Distribution Width 13.9 % (11.5-17.5); White Blood Count 7.8 K/mm3 (4.8-10.8)
[2023-09-06 11:24] LABS: Alanine Aminotransferase 27 U/L (12-78); Albumin Level 4.3 g/dl (3.5-5.0); Albumin/Globulin Ratio 1.7 (1.1-1.8); Alkaline Phosphatase 78 U/L (38-126); Anion Gap 10.6 mEq/L (5-15); Aspartate Amino Transferase 25 U/L (14-36); Bilirubin,Total 0.3 mg/dl (0.2-1.3); Blood Urea Nitrogen 11 mg/dl (7-17); Calcium 9.3 mg/dl (8.4-10.2); Carbon Dioxide 28 mmol/L (22.0-30.0); Chloride 105 mmol/L (98-107); Estimated Glomerular Filt Rate 64 ml/min (>60); GFR (African American) 78 ML/MIN (>60); Globulin 2.6 g/dL (1.3-3.2); Glucose 91 mg/dl (74-100); Potassium 4.6 mmoL/L (3.5-5.1); Sodium 139 mmol/L (136-145); Total Protein,Serum 6.9 g/dl (6.3-8.2)
[2023-09-06 11:50] LABS: HCG,Quantitative < 2 mIU/ml (0-5.42)
== END 2023-09-06 23:59 ==
PROVIDERS: PCP Internal Medicine Adolescent Medicine; Visit Provider Nurse Practitioner Obstetrics & Gynecology
DX: G89.29 Other chronic pain (principal); R10.2 Pelvic and perineal pain
CPT/HCPCS: 36415; 80053; 84702; 85025

== ENCOUNTER 2023-09-13 08:24 | Observation (INO) | payer BC, SELFPAY ==
[2023-09-11 10:22] VITALS: BMI 40.7
[2023-09-13] VITALS (21 sets, daily range): BP systolic 99–133; BP diastolic 56–81; PULSE 78–101; RESP 12–19; TEMP 36.4–37.4; O2SAT 88–98
[2023-09-13] MEDS: LACTATED RINGERS 1000ML 1,000 ML 100 ML IV (08:16)
--- NOTE | 2023-09-13 08:37 | HMH.PHAINT1 ---
Pharmacy Intervention Comments: MEDICATION RECONCILIATION COMPLETED ON PATIENT USING EXTERNAL FILL HISTORY FROM PHARMACY. -ELISEO ROMERO, MICHAELLED
--- NOTE | 2023-09-13 08:40 | P.PNANES_ITS ---
[facility] Disclaimer: The information contained in this section may have been updated after the patient was seen, as this information can be updated by other users. Medical History History of nephrolithiasis Chronic pelvic pain in female Endometriosis determined by laparoscopy Depression Anxiety Surgical History History of hernia repair History of oral surgery History of tonsillectomy History of surgery Family History Other No significant family history Social History (Updated 09/13/23 @ 08:14 by Soraya Ghotra RN) Smoking Status: Never smoker alcohol intake: current substance use type: denies use current occupational status: employed Travel in the last 8 weeks: None household members: family housing: house [facility] Anesthesia Checklist Patient Identification Patient Identification: Verbal (Name & ) Structural Data Admitted From: Home Planned Operative Procedure/s: [facility] Consent for Planned Operative Procedure(s) Verified: Yes NPO Status Verified Time NPO: 00:00 Additional verifications Anesthesia Reactions: No Hx Blood Transfusions: No Blood Transfusion Reaction: No Airway Assessment Mallampati Score:: Class II C-Spine Mobility Assessed: Yes TMJ Mobility Assessed: Yes Dentition: Good Dentition Neurological Assessment Level of Consciousness: Awake, Alert and Appropriate Anesthesia Plan Anesthesia Risk discussed: Yes Anesthesia Plan: Verified ASA Class: II Anesthesia Type: General
[2023-09-13] MEDS: CEFAZOLIN SODIUM 2 GM in 0.9 % SODIUM CHLORIDE 100 ML IV (09:45)
[2023-09-13] MEDS: LIDOCAINE 1% W/EPI 1:100,000 20ML VIAL 40 ML (09:56)
[2023-09-13] MEDS: ROPIVACAINE 0.5% 30ML VIAL 300 MG (09:56)
--- NOTE | 2023-09-13 11:10 | SUR.OPER ---
1050 - Family updated at this time
--- NOTE | 2023-09-13 13:33 | P.OP_ITS ---
Date of procedure: 09/13/23 Pre-op Diagnosis:: Pelvic pain, history of endometriosis, history of adhesions, endometrioma left ovary Post-op Diagnosis:: Pelvic pain, history of endometriosis, extensive pelvic peritoneal adhesions , endometrial of the left ovary. Procedure performed:: Laparoscopically assisted vaginal hysterectomy, left salpingo-oophorectomy, right salpingectomy, extensive lysis of pelvic peritoneal adhesions. Surgeon:: Vance Turpin MD [employer] Manager(s):: Dr. Almonte DNA SEQUENCING ASSOCIATE:: Stephanie Rosa Anesthesia: GETA Estimated blood loss (mL): 1,000 Clinical Note:: She is a 32-year-old lady who complains of severe pain with her periods as well as pain with intercourse. She has had previous laparoscopy that showed endometriosis. She had an ultrasound recently that showed a 3 cm left ovarian endometrioma. After having discussed the risks and benefits we elected perform a laparoscopic-assisted vaginal hysterectomy, left salpingo-oophorectomy and right salpingectomy. We also discussed extensive lysis of adhesions as well. Operative findings:: She had an anteverted somewhat bulky uterus and there appeared to be labs of endometriosis on the uterus itself. The left ovary was enlarged and adherent to the left pelvic sidewall. Within the left ovary was an endometrioma filled with chocolate fluid. The left ovary was adherent to the sigmoid colon as well. There were extensive adhesions of the colon to the posterior uterus and cervix. There were spots of endometriosis on the bladder flap as well as on the anterior abdominal wall to the right of midline. Operative note:: She was taken the operating room where general anesthesia was found to be adequate. She was prepped and draped in normal sterile fashion in the semilithotomy position. A weighted speculum placed in vagina and the anterior lip of the cervix was grasped with a tenaculum. I dilated the cervix to approximately 4 mm and then inserted a Carey uterine manipulator into the uterine cavity. The balloon was insufflated. She had a previous laparoscopy and has had previous umbilical hernia repair. As result of that we elected to avoid the umbilicus. I injected 10 cc of 0.25% ropivacaine just below the rib cage in the midclavicular line where she had had a previous laparoscopy. I then made a small incision and inserted a Veress n eedle into the abdominal cavity. The abdominal cavity was then insufflated with carbon oxide gas to a pressure of 20 mmHg. We then inserted an 11 mm trocar under direct vision. We identified the inferior epigastric arteries on the right side, went lateral to these and injected through and through with ropivacaine. We then made a small incision and inserted an 11 mm trocar here under direct vision. This was similarly performed on the patient's left side. We then injected through and through at the pubic hairline, made a small incision and inserted a 5 mm trocar here under direct vision. Upon entering the abdominal cavity the findings were as previously dictated. We started by freeing up the left ovary from the left pelvic sidewall. We then were able to identify the left infundibulopelvic ligament and this was isolated while we are taking down adhesions. We then put 2 hemoclips across the infundibulopelvic ligament and cut across this with harmonic scalpel. I then elected to place an Endoloop over the pedicle and cinched this down. Using harmonic scalpel we further freed up the left ovary completely. We then opened up the left round ligament and took down the peritoneum anteriorly to the midline. There were extensive adhesions on the posterior aspect of the uterus and these were taken down with harmonic scalpel. It took us a considerable amount of time going carefully to remove the thick adhesions. After freeing up the left side we then turned our attention to the right side. Using harmonic scalpel I opened up the patient's right round ligament. I then cut across the patient's right tube. This was followed by the right utero-ovarian ligament. After freeing up the ovary and tube on the right side we then took down the anterior aspect of the peritoneum joining up in the midline with the left side. We then further freed up the uterus to the level of the uterosacral ligaments. There was quite a lot of oozing from the adhesions that had been taken down. We then elected to perform the vaginal portion of the surgery. She was placed in the lithotomy position and a weighted speculum placed in the vagina. The anterior and posterior lip of the cervix were grasped with a tenaculum. I then injected 20 cc of 1% Xylocaine with epinephrine circumferentially about the cervix. I then circumscribed the cervix with a knife. This was followed by opening up into the posterior cul-de-sac with Hull scissors. A long weighted speculum is then placed through this defect. The left uterosacral ligament was then clamped cut and suture-ligated. This was fo llowed by the right uterosacral ligament which was clamped cut and suture- ligated. We then grasped the anterior aspect of the vaginal mucosa and opened up into the anterior cul-de-sac. A [place] retractor was then placed through this defect. Through pedicles were then clamped cut and suture-ligated by lateral. This freed up the uterus and it was removed through the vagina. We then closed the posterior cuff using running 2-0 Vicryl suture in a locked fashion. A Starks suture was then placed using 0 PDS suture. I placed the suture posteriorly through the vagina and then through the left uterosacral ligament. I plicated across the posterior peritoneum and then passed it through the right uterosacral ligament. The suture was then passed from the peritoneum to the vagina. This was left to be tied at the end of the case. Since we have taken down 70 extensive adhesions we elected to not close the peritoneum. We grasped the cornua of the vagina and using 0 Vicryl suture in a running locked fashion from left to right we closed the vaginal vault. The Starks suture was then tied. We then placed a Harris catheter and clear urine was seen to flow. We then turned our attention to the laparoscopic portion of the surgery once again and further inspected the pelvis. We rinsed the pelvis well and there was some bleeding on the patient's right side we determined that it was coming from a small artery on the right side and surgical clips were placed here. After once again assuring hemostasis the pelvis was then rinsed again and we elected to place 2 small pieces of Surgicel into the pelvis. The gas was let out of the abdomen and once again hemostasis was assured. The secondary trocars were then removed under direct vision. The sites were hemostatic. We then let the gas out of the abdomen and removed the primary trocar and camera together. No bowel was seen to follow. The 11 mm trocar sites were then closed deeply with [id number] 2-0 Vicryl suture followed by running subcuticular 4-0 Monocryl suture. The 5 mm trocar site was closed with subcuticular 4-0 Monocryl suture. Sterile dressings were applied to all incisions. She tolerated procedure well and was taken to the recovery room in excellent condition. All sponge, instrument and needle counts were correct. The estimated blood loss was approximately 1000 cc. Condition: stable Disposition: PACU Specimens:: Uterus, left ovary and tube, right fallopian tube Complications:: None
--- NOTE | 2023-09-13 13:35 | EXP.ANES.I ---
[facility] Anesthesia Record Part I Anesthesia Record I Intake, IV Amount: 1,500 Hydration: Adequate Estimated blood loss (mL): 1,000 Urine output (mL): 400 Blood Pressure: 107/57 SaO2: 92 Pulse Rate: 98 Airway Patency: Patent Respiratory Rate: 19 Temperature: 99.4 F Patient is:: Drowsy and Oral/Nasal airway Stable to PACU at:: 13:30
[2023-09-13] MEDS: MEPERIDINE 25MG/ML 1ML SYRINGE 25 MG IV (13:47)
[2023-09-13] MEDS: MORPHINE 2MG/ML SYRINGE 2 MG IV (13:47)
[2023-09-13] MEDS: ONDANSETRON 4MG/2ML VIAL 4 MG IV ×2 (13:54→20:34)
[2023-09-13] MEDS: HYDROMORPHONE 2MG/ML SYRINGE 1 MG IV ×2 (14:05→17:54)
[2023-09-13 14:29] LABS: Microscopic,Cath URINE MICROSCOPIC (MICROSCOPIC)
[2023-09-13] MEDS: LACTATED RINGERS 1000ML 1,000 ML 125 ML IV ×2 (14:32→23:04)
[2023-09-13 14:34] LABS: Appearance,Urine/Cath CLEAR (Clear); Bilirubin,Cath Negative (Negative); Blood, Urine/Cath Negative (Negative); Color,Urine/Cath YELLOW (Yellow); Glucose,Urine/Cath (UA) Negative (Negative); Ketones,Urine/Cath TRACE (Negative); Leukocyte Esterase,Cath Negative (Negative); Nitrate,Cath Negative (Negative); PH,Urine/Cath 5.5 (5.0-8.5); Protein,Urine/Cath Negative (Negative); Specific Gravity, Urine/Cath >= 1.030 (1.005-1.030); Urobilinogen,Cath 0.2 EU/dl (0.2)
[2023-09-13] MEDS: SIMETHICONE 80MG CHEWABLE TABLET 160 MG PO ×2 (14:49→20:33)
[2023-09-13] MEDS: HYDROMORPHONE 2MG/ML SYRINGE 0.5 MG IV ×3 (14:49→21:00)
[2023-09-13 15:20] LABS: WBC,Urine/Cath Occasional #/hpf (0-3)
[2023-09-13 16:14] LABS: Hematocrit 35.2 % (37.0-47.0); Hemoglobin 11.2 g/dL (12.2-16.2)
[2023-09-13] MEDS: PROMETHAZINE HCL 25MG/ML 1ML VIAL 12.5 MG IV ×2 (16:21→22:59)
[2023-09-13] MEDS: SODIUM CHLORIDE 0.9% 25ML BAG 25 ML IV ×2 (16:21→22:59)
[2023-09-13] MEDS: KETOROLAC 30MG/ML VIAL 30 MG IV (17:53)
[2023-09-13] MEDS: CEFAZOLIN SODIUM 1 GM in 0.9 % SODIUM CHLORIDE 50 ML IV (17:53)
[2023-09-13] MEDS: diphenhydrAMINE 25MG CAPSULE 25 MG PO (17:54)
--- NOTE | 2023-09-13 19:41 | PC.NURSE ---
Spoke with dr weems at this time reguarding pts home med paxil being reordered and bendaryl po not working, he okd to switch bendaryl to iv q 4 prn. verified and repeated back.
[2023-09-13] MEDS: ACETAMINOPHEN 500MG TAB 1000 MG PO (20:19)
[2023-09-13] MEDS: diphenhydrAMINE 50MG/ML VIAL 25 MG IV (20:21)
[2023-09-13] MEDS: SODIUM CHLORIDE 0.9% 10ML FLUSH SYRINGE 10 ML IV (21:01)
[2023-09-13] MEDS: OXYCODONE 5MG IMMEDIATE RELEASE TABLET 10 MG PO (22:52)
[2023-09-14] VITALS (7 sets, daily range): BP systolic 92–135; BP diastolic 46–82; PULSE 78–94; RESP 16–18; TEMP 36.3–36.8; O2SAT 94–100
[2023-09-14] MEDS: diphenhydrAMINE 50MG/ML VIAL 25 MG IV ×4 (00:04→20:48)
[2023-09-14] MEDS: KETOROLAC 30MG/ML VIAL 30 MG IV ×4 (00:04→18:15)
[2023-09-14] MEDS: SIMETHICONE 80MG CHEWABLE TABLET 160 MG PO ×6 (00:04→20:46)
[2023-09-14] MEDS: ACETAMINOPHEN 500MG TAB 1000 MG PO ×4 (02:07→23:54)
[2023-09-14] MEDS: CEFAZOLIN SODIUM 1 GM in 0.9 % SODIUM CHLORIDE 50 ML IV (02:07)
--- NOTE | 2023-09-14 02:12 | PC.NURSE ---
Spoke with dr weems at this time reguarding pt still not being able to sleep, new orders for trazodone 100mg, and visatril 25mg q6 prn, verified and repeated back.
[2023-09-14] MEDS: hydrOXYzine pamoate 25MG CAPSULE 25 MG PO (02:26)
[2023-09-14] MEDS: TRAZODONE 50MG TABLET 100 MG PO ×2 (02:26→20:46)
[2023-09-14] MEDS: OXYCODONE 5MG IMMEDIATE RELEASE TABLET 10 MG PO ×5 (03:22→20:50)
--- NOTE | 2023-09-14 04:20 | PC.NURSE ---
Reassessment done at this time, pt has not slept well throughout the night. Pt has been up all night and has had c/o gas and anxiety with pain as well. medicated per sep and ongoing calls with dr weems to allow for pt comfort. Pt found to be comfortable and resting at this time, reports that last meds have finally helped. 4 Lap sites are all non changed throughout shift, bottom area has small amount of bloody drainage. Chux changed and small amount of blood noted. Output has been excellent all night. Lung sounds clear throughout, bowels have returned to normal. pt has been able to tolerate jello and crackers throughout the night. iv infusing well. skuds remain on to bilateral lower extremities. Pts vitals have remained stable throughout the shift. cb remains in reach
[2023-09-14] MEDS: LACTATED RINGERS 1000ML 1,000 ML 125 ML IV ×2 (05:34→14:36)
[2023-09-14 06:39] LABS: Basophils % 0.3 % (0.1-2.0); Eosinophils % 0.2 % (0.1-12.0); Hematocrit 31.9 % (37.0-47.0); Hemoglobin 10.2 g/dL (12.2-16.2); Lymphocytes # 1.8 K/mm3 (0.7-4.5); Lymphocytes % 17.3 % (10-50); Mean Corpuscular HGB Conc 31.9 g/dL (31.8-35.4); Mean Corpuscular Hemoglobin 27.3 pg (27.0-31.2); Mean Corpuscular Volume 85.7 fl (81-99); Mean Platelet Volume 7.7 fl (7.4-10.4); Monocytes # 0.6 K/mm3 (0.1-1.0); Monocytes % 5.4 % (1.7-9.3); Neutrophils # 8.2 K/mm3 (1.8-7.8); Neutrophils % 76.9 % (37.0-80.0); Platelet Count 243 K/mm3 (142-424); Red Blood Count 3.72 M/mm3 (4.20-5.40); Red Cell Distribution Width 13.8 % (11.5-17.5); White Blood Count 10.7 K/mm3 (4.8-10.8)
[2023-09-14 07:16] LABS: Anion Gap 8.8 mEq/L (5-15); Blood Urea Nitrogen 8 mg/dl (7-17); Calcium 8.2 mg/dl (8.4-10.2); Carbon Dioxide 27 mmol/L (22.0-30.0); Chloride 107 mmol/L (98-107); Creatinine Clearance Estimated 188 mL/min (50-200); Estimated Glomerular Filt Rate 83 ml/min (>60); GFR (African American) 101 ML/MIN (>60); Glucose 98 mg/dl (74-100); Potassium 3.8 mmoL/L (3.5-5.1); Sodium 139 mmol/L (136-145)
[2023-09-14] MEDS: SENNOSIDES 8.6MG/DOCUSATE 50MG TABLET 1 TAB PO (07:55)
[2023-09-14] MEDS: ALPRAZolam 0.25MG TABLET 0.25 MG PO ×2 (07:55→23:55)
--- NOTE | 2023-09-14 09:04 | EXP.PN ---
Subjective *Date: 09/15/23 *Time: 06:39 Interval history: Ezra is a 32yo POD#1 from a LAVH and LSO. This morning the patient complains of increased pain and significantly worsened anxiety. She states she was so anxious last night she was not able to sleep. She has baseline anxiety but her home meds were not able to control her anxiety last night. She reports her pain to be a cramping lower abdominal pain. reports the diluadid controls her pain but she doesnt like the way it makes her feel, it causes her to itch so bad and it doesnt last long. Pt thinks the oxycodone works better for her pain. She has tolerated clear fluid overnight without N/V. She endorses flatus. Exam Data for Last 24 hours Vital signs and Labs for Last 24 Hours: Temp Pulse Resp BP Pulse Ox O2 Del Method O2 Flow Rate 97.4 F L 85 18 124/70 100 Room Air 2 09/14/23 08:00 09/14/23 08:00 09/14/23 08:00 09/14/23 08:00 09/14/23 08:00 09/14/23 08:00 09/13/23 18:47 Laboratory Results - last 24 hr 09/13/23 11:53: Urine Color Yellow, Urine Appearance Clear, Urine pH 5.5, Ur Specific [place] >= 1.030, Urine Protein Negative, Urine Glucose (UA) Negative, Urine Ketones Trace, Urine Blood Negative, Urine Nitrate Negative, Urine Bilirubin Negative, Urine Urobilinogen 0.2, Ur Leukocyte Esterase Negative, Urine RBC None, Urine WBC Occasional, Ur Squamous Epith Cells None, Urine Bacteria None 09/13/23 16:05: Hgb 11.2 L, Hct 35.2 L 09/14/23 05:22: WBC 10.7, RBC 3.72 L, Hgb 10.2 L, Hct 31.9 L, MCV 85.7, MCH 27.3, MCHC 31.9, RDW 13.8, Plt Count 243, MPV 7.7, Neut % (Auto) 76.9, Lymph % (Auto) 17.3, [place] % (Auto) 5.4, Eos % (Auto) 0.2, Baso % (Auto) 0.3, Neut # (Auto) 8.2 H, Lymph # (Auto) 1.8, [place] # (Auto) 0.6, Eos # (Auto) 0.0, Baso # (Auto) 0.0, Sodium 139, Potassium 3.8, Chloride 107, Carbon Dioxide 27, Anion Gap 8.8, BUN 8, Creatinine 0.80, Estimated Creat Clear 188, Estimated GFR 83, Est GFR ( Amer) 101, Glucose 98, Calcium 8.2 L I & O for Last 24 hours: Intake & Output 09/11/23 09/12/23 09/13/23 09/14/23 23:59 23:59 23:59 23:59 Intake Total 1500 / 1500 Output Total 950 / 950 1400 / 1400 Balance 550 / 550 -1400 / -1400 Weight 260 lb Constitutional Constitutional: no acute distress *Routine HEENT Exam Head: Present normocephalic Eye: Present EOMI and PERRL ENT: Present mucous membranes moist *Routine Neck Exam Neck: Present supple; Absent lymphadenopathy *Routine Respiratory Exam Respiratory: Present CTA bilaterally *Routine Cardiovascular Exam Cardiovascular: Present RRR *Routine Abdominal Exam Abdominal: Present soft, normoactive bowel sounds (in all 4 quadrants), tenderness (appropriate for the postoperative period) and obese; Absent distended, rebound, guarding, firm or rigid *Routine Extremities Exam Extremities: Absent cyanosis, clubbing or edema *Routine Skin Exam Skin: Present warm; Absent rash Comments: bandages over laparoscopic incisions. no bleeding or drainage noted *Routine Neurological Exam Neurological: Present alert and oriented X3 Assessment and Plan *Assessment and plan (1) H/O hysterectomy with unilateral oophorectomy: Status: Acute Category: Surgical Code(s): Z90.710 - Acquired absence of both cervix and uterus; Z90.721 - Acquired absence of ovaries, unilateral (2) Anemia: Status: Acute Qualifiers: Other causes of anemia: acute posthemorrhagic Category: Medical Code(s): D64.9 - Anemia, unspecified (3) Post-operative hemorrhage: Status: Acute Qualifiers: Procedure type: genitourinary Surgical complication system/body Area: genitourinary Qualified Code(s): N99.820 - Postprocedural hemorrhage of a genitourinary system organ or structure following a genitourinary system procedure Category: Medical Plan #LAVH and LSO with right salpingectomy -Doing well -Encouraged ambulation -Encouraged incentive spirometer use -Slowly advance patients diet to full diet today -Pain is being managed with 10mg Oxycodone, 30mg IV Ketorolac, 1000mg PO Aceatminophen #Anxiety #Insominia -We will try a one time dose of Xanax 0.25mg -Med rec showed last night for sleep pt received: 25mg IV benadryl, 100mg Trazodone, 25mg Hydroxyzine and still had difficulty sleeping. #Anemia -Hgb: 13.5 > 10.2 -EBL: 1000mL -IV Venofer given on POD#1 -Pt doing well. vitals remain stable
[2023-09-14] MEDS: SODIUM CHLORIDE 0.9% 25ML BAG 25 ML IV ×2 (13:10→18:27)
[2023-09-14] MEDS: PROMETHAZINE HCL 25MG/ML 1ML VIAL 12.5 MG IV ×2 (13:10→18:27)
[2023-09-14] MEDS: IRON SUCROSE COMPLEX 200 MG in 0.9 % SODIUM CHLORIDE 100 ML 220 MG IV (14:36)
[2023-09-14] MEDS: PARoxetine 20MG TABLET 40 MG PO (20:46)
--- NOTE | 2023-09-14 23:40 | PC.NURSE ---
PT IV OCCULED AND HER HAND EDEMATOUS.PT ASKED ABOUT GETTING HER MEDICINES PO SO SHE DID NOT HAVE TO BE STUCK AGAIN.NOTIFIED AND HE SAID THAT WAS OK.TORADOL CHANGED TO 10MG PO EVERY 6 HOURS AND PHENERGAN CHANGED TO 25MG PO EVERY 4 HOURS PRN FOR NAUSEA.PLANS FOR SENDING HER HOME TOMORROW.PT EATING AND DRINKING WELL
[2023-09-14] MEDS: KETOROLAC 10MG TABLET 10 MG PO (23:55)
[2023-09-15 05:00] VITALS: BP 113/67; PULSE 72; RESP 17; TEMP 36.6; O2SAT 95
--- NOTE | 2023-09-15 05:25 | PC.NURSE ---
PT HAS SLEPT WELL,NO ACUTE CHANGES FROM PREVIOUS ASSESSMENT.LUNGS CLEAR THROUGHTOUT,RESP.EVEN AND UNLABORED.BOWEL SOUNDS ACTIVE.PT REPORTS PASSING SOME GAS,NO BOWEL MOVEMENT. 4 LAP SITES-NO NEW DRAINAGE,AFEBRILE.SEE MAR FOR MEDICATIONS.CALL PENNY WITHIN REACH,BED IN LOW POSTION
[2023-09-15] MEDS: ACETAMINOPHEN 500MG TAB 1000 MG PO (05:58)
[2023-09-15] MEDS: KETOROLAC 10MG TABLET 10 MG PO (05:59)
[2023-09-15] MEDS: PROMETHAZINE 25MG TABLET 25 MG PO (06:06)
[2023-09-15] MEDS: SIMETHICONE 80MG CHEWABLE TABLET 160 MG PO (06:06)
[2023-09-15 08:50] VITALS: BP 100/50; PULSE 74; RESP 16; TEMP 36.6; O2SAT 98
--- NOTE | 2023-09-15 09:42 | EXP.DC.SUM ---
General Admission date:: 09/13/23 Discharge date: 09/15/23 HPI HPI HPI: She is a 32-year-old lady who complains of severe pain with her periods as well as pain with intercourse. She has had previous laparoscopy that showed endometriosis. She had an ultrasound recently that showed a 3 cm left ovarian endometrioma. After having discussed the risks and benefits we elected perform a laparoscopic-assisted vaginal hysterectomy, left salpingo-oophorectomy and right salpingectomy. We also discussed extensive lysis of adhesions as well. Hospital Course Hospital Course Hospital Course: On September 13, 2023 she underwent a laparoscopically assisted vaginal hysterectomy, left salpingo-oophorectomy and right salpingectomy. At the time of her surgery she had extensive adhesions of the ovary to the left pelvic sidewall as well as bowel adherent to the posterior uterus. She was quite oozy throughout the surgery and had lost approximately 1000 cc of blood during the surgery. Her postoperative hemoglobin however is normal. Her electrolytes are normal. While hospitalized she had significant anxiety and poor pain relief with narcotics. I suspect that she is nonsensitive to narcotics. She did do well with 0.25 mg of Xanax for her anxiety. This also helped her sleep. She has otherwise done well and denies chest pain, shortness of breath or calf tenderness. Her examination was essentially normal this morning prior to discharge. She will be discharged home to follow-up with Dr. Almonte in approximately 2 weeks time. She will follow-up with me in 6 weeks time. She was given the usual instructions with respect to limiting her activity, driving and sexual activity. She was given instructions with respect to wound care. She was given a prescription for Percocet 5/325 number 20 tablets as well as Toradol 10 mg number 20 tablets. She was given a prescription for Xanax 0.5 mg number 10 tablets to take 1/2 tablet nightly. Her condition on discharge is stable and improved. Exam Data for Last 24 hours Vital signs and Labs for Last 24 Hours: Temp Pulse Resp BP Pulse Ox O2 Del Method O2 Flow Rate 97.9 F 74 16 100/50 L 98 Room Air 2 09/15/23 08:50 09/15/23 08:50 09/15/23 08:50 09/15/23 08:50 09/15/23 08:50 09/15/23 08:50 09/13/23 18:47 I & O for Last 24 hours: Intake & Output 09/12/23 09/13/23 09/14/23 09/15/23 11:59 11:59 11:59 11:59 Intake Total 1500 / 1500 Output Total 3000 / 3000 1675 / 1675 Balance -1500 / -1500 -1675 / -1675 Constitutional Constitutional: no acute distress *Routine HEENT Exam Head: Present normocephalic *Routine Neck Exam Neck: Present full ROM *Routine Respiratory Exam Respiratory: Present normal respiratory effort; Absent accessory muscle use *Routine Cardiovascular Exam Cardiovascular: Present RRR *Routine Abdominal Exam Abdominal: Present soft, normoactive bowel sounds, tenderness and surgical scars (Her decision is are clean and dry); Absent distended or rebound *Routine Rectal Exam Patient deferred: digital exam *Routine Exam Patient deferred: external exam *Routine Extremities Exam Extremities: Present full ROM; Absent edema or calf tenderness *Routine Neurological Exam Neurological: Present alert and oriented X3 DS: Diagnosis Discharge Diagnosis (1) H/O hysterectomy with unilateral oophorectomy: Status: Acute Code(s): Z90.710 - Acquired absence of both cervix and uterus; Z90.721 - Acquired absence of ovaries, unilateral (2) Post-operative hemorrhage: Status: Acute Qualifiers: Procedure type: genitourinary Surgical complication system/body Area: genitourinary Qualified Code(s): N99.820 - Postprocedural hemorrhage of a genitourinary system organ or structure following a genitourinary system procedure (3) Chronic pelvic pain in female: Status: Acute Code(s): R10.2 - Pelvic and perineal pain; G89.29 - Other chronic pain (4) Depression: Status: Acute Code(s): F32.A - Depression, unspecified Qualifiers: Depression Type: unspecified Qualified Code(s): F32.A - Depression, unspecified (5) Anxiety: Status: Acute Code(s): F41.9 - Anxiety disorder, unspecified (6) Endometriosis determined by laparoscopy: Status: Acute Code(s): N80.9 - Endometriosis, unspecified (7) Menorrhagia: Status: Acute Code(s): N92.0 - Excessive and frequent menstruation with regular cycle Qualifiers: Menorrhagia type: with irregular cycle Qualified Code(s): N92.1 - Excessive and frequent menstruation with irregular cycle (8) Dysmenorrhea: Status: Acute Code(s): N94.6 - Dysmenorrhea, unspecified Meds Home Medications and Allergies Home Medications Medication Instructions Recorded Confirmed Type paroxetine HCl 40 mg tablet 40 mg PO DAILY Mood 09/06/23 09/13/23 History trazodone 100 mg tablet 100 mg PO HS 09/06/23 09/13/23 History alprazolam 0.5 mg tablet (Xanax) 0.5 mg PO HS PRN sleep #10 tabs 09/15/23 Rx ketorolac 10 mg tablet 10 mg PO Q6H #20 tabs 09/15/23 Rx oxycodone-acetaminophen 5 mg-325 1 tab PO Q6H PRN pain #20 tabs 09/15/23 Rx mg tablet New Prescriptions to Start Prescriptions: alprazolam [Xanax] Vance Turpin ketorolac Vance Turpin oxycodone-acetaminophen Vance Turpin Allergies Allergy/AdvReac Type Severity Reaction Status Date / Time erythromycin base Allergy Unknown -- Verified 09/13/23 08:00 Discharge Plan Disposition Patient Disposition: Home, Self-Care Follow up Plan Follow up with: Vance Turpin MD [Staff Physician] - Enter time for follow up (call the office on sunday to setup an appointment for 2 weeks.) Prescriptions/Medication Reconciliation: New oxycodone-acetaminophen 5-325 mg tablet 1 tab PO Q6H PRN (Reason: pain) Qty: 20 0RF alprazolam [Xanax] 0.5 mg tablet 0.5 mg PO HS PRN (Reason: sleep) Qty: 10 0RF ketorolac 10 mg tablet 10 mg PO Q6H Qty: 20 0RF Continued paroxetine HCl 40 mg tablet 40 mg PO DAILY trazodone 100 mg tablet 100 mg PO HS Problem Reconciliation Problems Reviewed?: Yes Patient Discharge Instructions ACTIVITY: No heavy lifting DIET: continue same diet Additional Instructions: *No heavy lifting* *No strenuous activity* *Nothing in the vagina for 6 weeks* *No driving while taking opioid pain medication* Patient Instructions: How to Care for a Surgical Wound, DI for Hysterectomy, DI for Postoperative Pain Providers Primary Care Provider: Win Vance Admit Provider: Vance Turpin Attending Provider: Vance Turpin
--- NOTE | 2023-09-15 09:43 | EXP.HP ---
History of Present Illness *Admission Date: 09/13/23 *Reason for visit:: Pelvic pain, dyspareunia, history of endometriosis, history of adhesions *History of present illness: She is a 32-year-old lady who complains of severe pain with her periods as well as pain with intercourse. She has had previous laparoscopy that showed endometriosis. She had an ultrasound recently that showed a 3 cm left ovarian endometrioma. After having discussed the risks and benefits we elected perform a laparoscopic-assisted vaginal hysterectomy, left salpingo-oophorectomy and right salpingectomy. We also discussed extensive lysis of adhesions as well. [facility] Disclaimer: The information contained in this section may have been updated after the patient was seen, as this information can be updated by other users. Medical History History of nephrolithiasis Chronic pelvic pain in female Endometriosis determined by laparoscopy Depression Anxiety Surgical History History of hernia repair History of oral surgery History of tonsillectomy History of surgery Family History No significant family history Social History Smoking Status: Never smoker alcohol intake: current substance use type: denies use current occupational status: employed and other Travel in the last 8 weeks: None household members: family housing: house Review of Systems Review of Systems Review of systems:: pertinent systems reviewed and negative unless documented below Meds Home Medications and Allergies Home Medications Medication Instructions Recorded Confirmed Type paroxetine HCl 40 mg tablet 40 mg PO DAILY Mood 09/06/23 09/13/23 History trazodone 100 mg tablet 100 mg PO HS 09/06/23 09/13/23 History New Prescriptions to Start Prescriptions: Allergies Allergy/AdvReac Type Severity Reaction Status Date / Time erythromycin base Allergy Unknown -- Verified 09/13/23 08:00 Exam Data for Last 24 hours Vital signs and Labs for Last 24 Hours: Temp Pulse Resp BP Pulse Ox O2 Del Method O2 Flow Rate 97.9 F 74 16 100/50 L 98 Room Air 2 09/15/23 08:50 09/15/23 08:50 09/15/23 08:50 09/15/23 08:50 09/15/23 08:50 09/15/23 08:50 09/13/23 18:47 I & O for Last 24 hours: Intake & Output 09/12/23 09/13/23 09/14/23 09/15/23 11:59 11:59 11:59 11:59 Intake Total 1500 / 1500 Output Total 3000 / 3000 1675 / 1675 Balance -1500 / -1500 -1675 / -1675 Constitutional Constitutional: no acute distress *Routine HEENT Exam Head: Present normocephalic Eye: Present EOMI and PERRL ENT: Present mucous membranes moist *Routine Neck Exam Neck: Present supple; Absent lymphadenopathy *Routine Respiratory Exam Respiratory: Present CTA bilaterally *Routine Cardiovascular Exam Cardiovascular: Present RRR *Routine Abdominal Exam Abdominal: Present soft and normoactive bowel sounds; Absent tenderness *Routine Rectal Exam Rectal:: deferred *Routine Genitalia Exam Genitalia:: deferred *Routine Extremities Exam Extremities: Absent cyanosis, clubbing or edema *Routine Skin Exam Skin: Present warm; Absent rash *Routine Neurological Exam Neurological: Present alert and oriented X3 Assessment and Plan *Assessment and plan (1) Menorrhagia: Status: Acute Qualifiers: Menorrhagia type: with irregular cycle Qualified Code(s): N92.1 - Excessive and frequent menstruation with irregular cycle Category: Medical Code(s): N92.0 - Excessive and frequent menstruation with regular cycle (2) Dysmenorrhea: Status: Acute Category: Medical Code(s): N94.6 - Dysmenorrhea, unspecified (3) Chronic pelvic pain in female: Status: Acute Category: Medical Code(s): R10.2 - Pelvic and perineal pain; G89.29 - Other chronic pain (4) Depression: Status: Acute Qualifiers: Depression Type: unspecified Qualified Code(s): F32.A - Depression, unspecified Category: Medical Code(s): F32.A - Depression, unspecified (5) Anxiety: Status: Acute Category: Medical Code(s): F41.9 - Anxiety disorder, unspecified (6) Endometriosis determined by laparoscopy: Status: Acute Category: Medical Code(s): N80.9 - Endometriosis, unspecified (7) History of nephrolithiasis: Status: Acute Category: Medical Code(s): Z87.442 - Personal history of urinary calculi Plan She is admitted for laparoscopically assisted vaginal hysterectomy, left salpingo-oophorectomy, right salpingectomy. Lysis of adhesions.
--- NOTE | 2023-09-15 10:54 | PC.NURSE ---
Discharge education provided. Questions encouraged and answered Pt. v/u. Pt. awaiting meds to beds.
--- NOTE | 2023-09-15 11:12 | PC.NURSE ---
Pt. left unit via wheelchair. Pt. accompanied by staff x1 and family member.
--- NOTE | 2023-09-17 16:29 | P.PNANES_ITS ---
[facility] Anesthesia Record Part II Anesthesia Record Part II Discharge Time: 14:10 Destination: Obstetric PACU nurse assessment reviewed?: Yes Patient Condition:: Good Anesthesia Complications:: None Swallowing reflex intact?: Yes Airway Patency: Patent Cyanosis?: No Blood Pressure: 126/66 SaO2: 96 Respiratory Rate: 18 Pulse Rate: 95 Temperature: 98.3 F Mental Status: Alert & Oriented Pain level:: 7 Nausea and/or vomitting:: None Intake, IV Amount: 0 Hydration: Adequate
[2023-09-17 16:30] VITALS: BP 126/66; PULSE 95; RESP 18; TEMP 36.8; O2SAT 96
== END 2023-09-15 11:12 | disposition home or self-care (01) ==
LOC: OB 08:25
PROVIDERS: Admitting Provider Nurse Practitioner Obstetrics & Gynecology; PCP Internal Medicine Adolescent Medicine; Visit Provider Nurse Practitioner Obstetrics & Gynecology
PROC: 0UT9FZZ Resection of Uterus, Via Natural or Artificial Opening With Percutaneous Endoscopic Assistance (ICD-10-PCS; CPT 58262; principal; 2023-09-13 09:00)
PROC: (CPT 58262; 2023-09-13 09:00)
DX: N80.122 Deep endometriosis of left ovary (principal); R10.2 Pelvic and perineal pain; G89.29 Other chronic pain; F32.A Depression, unspecified; F41.9 Anxiety disorder, unspecified; N92.1 Excessive and frequent menstruation with irregular cycle
CPT/HCPCS: 58262; 49329; 36415; 80048; 81001; 85014; 85018; 85025; 96374; J3490; G0378; J0131; J1756; J2405

== ENCOUNTER 2023-09-21 08:18 | Outpatient (CLI) | payer BC, SELFPAY ==
[2023-09-21 08:48] LABS: Basophils % 0.3 % (0.1-2.0); Eosinophils # 0.3 K/mm3 (0.0-0.4); Eosinophils % 3.1 % (0.1-12.0); Hemoglobin 8.6 g/dL (12.2-16.2); Lymphocytes # 1.3 K/mm3 (0.7-4.5); Lymphocytes % 12.4 % (10-50); Mean Corpuscular HGB Conc 33.1 g/dL (31.8-35.4); Mean Corpuscular Hemoglobin 28.4 pg (27.0-31.2); Mean Corpuscular Volume 85.7 fl (81-99); Mean Platelet Volume 8.1 fl (7.4-10.4); Monocytes # 0.9 K/mm3 (0.1-1.0); Monocytes % 8.1 % (1.7-9.3); Neutrophils # 7.9 K/mm3 (1.8-7.8); Platelet Count 344 K/mm3 (142-424); Red Blood Count 3.03 M/mm3 (4.20-5.40); Red Cell Distribution Width 14.1 % (11.5-17.5); White Blood Count 10.4 K/mm3 (4.8-10.8)
[2023-09-21 09:08] LABS: Chloride 102 mmol/L (98-107); Potassium 3.8 mmoL/L (3.5-5.1); Sodium 135 mmol/L (136-145)
[2023-09-21 09:10] LABS: Alanine Aminotransferase 21 U/L (12-78); Albumin Level 3.4 g/dl (3.5-5.0); Albumin/Globulin Ratio 1.4 (1.1-1.8); Alkaline Phosphatase 79 U/L (38-126); Aspartate Amino Transferase 21 U/L (14-36); Bilirubin,Total 0.4 mg/dl (0.2-1.3); Blood Urea Nitrogen 8 mg/dl (7-17); Estimated Glomerular Filt Rate 73 ml/min (>60); GFR (African American) 88 ML/MIN (>60); Globulin 2.4 g/dL (1.3-3.2); Total Protein,Serum 5.8 g/dl (6.3-8.2)
[2023-09-21 09:11] LABS: Anion Gap 10.8 mEq/L (5-15); Calcium 8.3 mg/dl (8.4-10.2); Carbon Dioxide 26 mmol/L (22.0-30.0); Glucose 99 mg/dl (74-100)
[2023-09-21 09:17] LABS: C-Reactive Protein 279.7 mg/L (0-4)
== END 2023-09-21 23:59 ==
LOC: LAB 08:18
PROVIDERS: PCP Internal Medicine Adolescent Medicine; Visit Provider Obstetrics & Gynecology
DX: R50.82 Postprocedural fever (principal)
CPT/HCPCS: 36415; 80053; 85025; 86140

== ENCOUNTER 2023-09-21 09:33 | Observation (INO) | payer BC, SELFPAY ==
[2023-09-21] VITALS (10 sets, daily range): BP systolic 105–150; BP diastolic 55–101; PULSE 93–103; RESP 15–24; TEMP 36.7–37.9; O2SAT 93–100; BMI 43.0
--- NOTE | 2023-09-21 09:52 | ED_ITS ---
Discharge Plan Disposition Patient Disposition: Admitted Condition: Fair Clinical Impressions Clinical Impression: Vaginal bleeding Discharge ED Provider: Jose Miguel Julien General Adult HPI General Chief complaint: Recheck/Abnormal Lab/Rx Stated complaint: fever, blood loss, need CT per Dr. Almonte Time Seen by Provider: 09/21/23 09:39 History of Present Illness HPI narrative: Patient is a 32-year-old female status post hysterectomy for endometriosis, presents with fevers, abdominal pain, gradual in onset for the past several days, constant, worsening. She is sent from clinic due to concerns for decreasing hemoglobin. Her pain is severe and nonradiating. No previous therapies. Denies any nausea or vomiting or pain elsewhere. Her pain is located diffusely throughout her abdomen. Please note that above description of symptoms, in this electronic medical record under categorization of recalled from ER triage doctor by RN are reflective of an initial nursing assessment, however, is not reflective of my full history and physical exam that was personally taken and clarified. Consequentially, this preceding description of symptoms, which may include the patient's categorized chief complaint in the EMR, do not reflect my personal clinical impression, and the ultimate description of history of present illness and patient stated complaints should be deferred to this section of the note. Unless stated otherwise or congruent with this section of the note, additional signs, symptoms, or incongruence should be interpreted as inaccurate with my clinical impression. Related Data Home Medications Medication Instructions Recorded Confirmed paroxetine HCl 40 mg tablet 40 mg PO DAILY Mood 09/06/23 09/21/23 trazodone 100 mg tablet 100 mg PO HS Sleep 09/06/23 09/21/23 alprazolam 0.5 mg tablet (Xanax) 0.5 mg PO HSP PRN sleep 09/21/23 09/21/23 oxycodone-acetaminophen 5 mg-325 1 tab PO Q6HP PRN Moderate Pain 09/21/23 09/21/23 mg tablet (Scale Score 5-6) Allergies Allergy/AdvReac Type Severity Reaction Status Date / Time erythromycin base Allergy Unknown -- Verified 09/21/23 09:00 [facility] Disclaimer: The information contained in this section may have been updated after the patient was seen, as this information can be updated by other users. Medical History History of nephrolithiasis Chronic pelvic pain in female Endometriosis determined by laparoscopy Depression Anxiety Surgical History History of hernia repair History of oral surgery History of tonsillectomy History of surgery laparoscopy Family History Other No significant family history Social History Smoking Status: Never smoker alcohol intake: current substance use type: denies use current occupational status: employed and other Travel in the last 8 weeks: None household members: family housing: house ROS Obtained: Yes Systems reviewed as appropriate & no additional complaints except as documented As per HPI Physical Exam General General appearance: alert and in no apparent distress Head Head exam: atraumatic and normocephalic Eye Eye exam: Present normal appearance Neck Neck exam: Present normal inspection Chest Chest inspection: Present normal inspection and symmetric chest wall rise Respiratory Respiratory exam: Present normal lung sounds bilaterally; Absent respiratory distress Cardiovascular Cardiovascular exam: Present regular rate and normal rhythm Abdominal Exam Abdominal exam: Present soft and tenderness; Absent guarding Abdominal tenderness: Present diffuse and severe Neurological Exam Neurological exam: Present alert and oriented X3 Psychiatric Psychiatric exam: Present normal affect and normal mood Skin Skin exam: Present warm and dry Medical Decision Making Medical Records Medical records reviewed: Yes I reviewed the patient's medical records. [facility] Inquiry Pt receiving controlled substance: No Vital Signs: 09/21/23 09:34 09/21/23 09:58 09/21/23 10:49 Temperature 99.0 F 99.0 F Temperature Source Oral Oral Pulse Rate 93 H Pulse Rate [Right] 95 H 95 H Respiratory Rate 16 24 Blood Pressure 143/84 H Blood Pressure [Right Arm] 150/101 H 150/101 H Blood Pressure Mean [Right Arm] 117 117 Blood Pressure Source [Right Arm] Automatic Cuff 02 Sat by Pulse Oximetry 93 L 93 L 94 L Oxygen Delivery Method Room Air Room Air Room Air 09/21/23 13:47 Temperature 99.0 F Temperature Source Pulse Rate 93 H Pulse Rate [Right] Respiratory Rate 15 Blood Pressure 143/84 H Blood Pressure [Right Arm] Blood Pressure Mean [Right Arm] Blood Pressure Source [Right Arm] 02 Sat by Pulse Oximetry Oxygen Delivery Method Lab Data Lab Results 09/21/23 10:10: WBC 10.4, RBC 3.29 L, Hgb 9.1 L, Hct 27.7 L, MCV 84.1, MCH 27.7, MCHC 33.0, RDW 13.9, Plt Count 370, MPV 8.2, Neut % (Auto) 76.9, Lymph % (Auto) 14.2, [place] % (Auto) 6.1, Eos % (Auto) 2.4, Baso % (Auto) 0.3, Neut # (Auto) 8.0 H, Lymph # (Auto) 1.5, [place] # (Auto) 0.6, Eos # (Auto) 0.3, Baso # (Auto) 0.0, PT 11.9, INR 1.11 H, Sodium 133 L, Potassium 3.8, Chloride 102, Carbon Dioxide 25, Anion Gap 9.8, BUN 8, Creatinine 0.90, Estimated Creat Clear 87, Estimated GFR 73, Est GFR ( Amer) 88, Glucose 96, Lactate 1.0, Calcium 8.4, Phosphorus 3.9, Magnesium 1.9, Total Bilirubin 0.3, AST 23, ALT 22, Alkaline Phosphatase 83, Total Protein 6.1 L, Albumin 3.3 L, Globulin 2.8, Albumin/Globulin Ratio 1.2, Serum HCG, Qual Negative, Blood Type O Positive, Antibody Screen Negative 09/21/23 10:10 09/21/23 10:10 Orders (Tests/Meds): ED MEDICATIONS Generic Name Dose Route Start Last Admin Trade Name Freq PRN Reason Stop Dose Admin Acetaminophen 1,000 mg 09/21/23 15:00 09/21/23 15:05 Acetaminophen 500mg Tab PO 10/21/23 14:59 1,000 mg Q6H JAMEL Administration Piperacillin Sod/Tazobactam 50 mls @ 100 mls/hr 09/21/23 15:00 Sod 3.375 gm/ Sodium Chloride IV 10/01/23 14:59 Q6H JAMEL Lactated Ringer's 1,000 mls @ 125 mls/hr 09/21/23 15:00 09/21/23 15:04 Lactated Ringer's 1000 Ml Bag IV 10/21/23 14:59 125 mls/hr .Q8H JAMEL Administration Lorazepam 0.5 mg 09/21/23 14:49 Lorazepam 0.5mg Tablet PO 10/21/23 14:48 BIDP PRN Anxiety Morphine Sulfate 1 mg 09/21/23 14:53 Morphine 2mg/Ml Syringe IV 10/21/23 14:52 Q2HP PRN Severe Pain (7-10) Nicotine 21 mg 09/21/23 14:50 Nicotine 21mg/24hr Patch TD 10/21/23 14:49 DAILYP PRN Nicotine Cravings Ondansetron HCl 4 mg 09/21/23 14:50 Ondansetron 4mg/2ml Vial IV 10/21/23 14:49 Q6HP PRN Nausea Oxycodone HCl 5 mg 09/21/23 14:50 Oxycodone 5mg Immediate Release Tablet PO 10/21/23 14:49 Q4HP PRN Moderate Pain (4-6) Paroxetine HCl 40 mg 09/22/23 09:00 Paroxetine 20mg Tablet PO 10/22/23 08:59 DAILY JAMEL Polyethylene Glycol 17 gm 09/21/23 14:50 Polyethylene Glycol 3350 17 Gm Packet PO 10/21/23 14:49 BIDP PRN Constipation Promethazine HCl 12.5 mg 09/21/23 14:50 Promethazine Hcl 25mg/Ml 1ml Vial IV 10/21/23 14:49 Q4HP PRN Nausea And Vomiting Senna/Docusate Sodium 1 tab 09/21/23 14:50 Sennosides 8.6mg/Docusate 50mg Tablet PO 10/21/23 14:49 BIDP PRN Constipation Sodium Chloride 10 ml 09/21/23 10:08 Sodium Chloride 0.9% 10ml Vial IV 10/21/23 10:07 NEEDED PRN to Dilute Lorazepam inj Sodium Chloride 10 ml 09/21/23 14:50 Sodium Chloride 0.9% 10ml Flush Syringe IV 10/21/23 14:49 NEEDED PRN Maintain IV Site Sodium Chloride 25 ml 09/21/23 14:50 Sodium Chloride 0.9% 25ml Bag IV 10/21/23 14:49 NEEDED PRN for Use with IV Promethazine Trazodone HCl 100 mg 09/21/23 21:00 Trazodone 50mg Tablet PO 10/21/23 20:59 HS JAMEL Discontinued Medications Generic Name Dose Route Start Last Admin Trade Name Freq PRN Reason Stop Dose Admin Iopamidol 75 ml 09/21/23 10:38 09/21/23 10:43 Iopamidol-370 (76%);100ml Bottle IV 09/21/23 10:39 75 ml ONCE ONE Administration Lorazepam 0.5 mg 09/21/23 10:08 09/21/23 10:28 Lorazepam 2mg/Ml Vial IV 09/21/23 10:09 0.5 mg ONCE ONE Administration Morphine Sulfate 4 mg 09/21/23 10:08 09/21/23 10:28 Morphine 4mg/Ml Syringe IV 09/21/23 10:09 4 mg ONCE ONE Administration Ondansetron HCl 4 mg 09/21/23 10:20 09/21/23 10:28 Ondansetron 4mg/2ml Vial IV 09/21/23 10:21 4 mg ONCE ONE Administration Sodium Chloride 10 ml 09/21/23 10:38 09/21/23 10:43 Sodium Chloride 0.9% 10ml Syr (Rad Only) IV 09/21/23 10:39 10 ml ONCE ONE Administration Sodium Chloride 10 ml 09/21/23 14:50 Sodium Chloride 0.9% 10ml Flush Syringe IV 10/21/23 14:49 NEEDED PRN Maintain IV Site ORDERS Category Date Time Status Type and Screen Stat BBK 09/21/23 10:[address] abdomen pelvis w con Stat Cat Scan 09/21/23 10:08 Completed CBC w/Auto Diff [Complete Blood Count Auto Diff] Stat Lab 09/21/23 10:10 Completed CMP [Comprehensive Metabolic Panel] Stat Lab 09/21/23 10:10 Completed HCG Qualitative, Serum Stat Lab 09/21/23 10:10 Completed Lactic Acid Stat Lab 09/21/23 10:10 Completed MAG [Magnesium] Stat Lab 09/21/23 10:10 Completed PHOS [Phosphorous] Stat Lab 09/21/23 10:10 Completed PT INR [Prothrombin Time INR] Stat Lab 09/21/23 10:10 Completed Blood Culture Stat Micro 09/21/23 10:30 Received Urine Culture Routine Micro 09/21/23 12:41 Ordered Medical Decision Narrative: Patient with history and exam per above presenting for evaluation of diffuse postoperative abdominal pain Diagnoses considered include blood loss anemia, cellulitis, abscess, perforation, bowel obstruction, among others ED workup and treatment included: ED MEDICATIONS Generic Name Dose Route Start Last Admin Trade Name Freq PRN Reason Stop Dose Admin Acetaminophen 1,000 mg 09/21/23 15:00 09/21/23 15:05 Acetaminophen 500mg Tab PO 10/21/23 14:59 1,000 mg Q6H JAMEL Administration Piperacillin Sod/Tazobactam 50 mls @ 100 mls/hr 09/21/23 15:00 Sod 3.375 gm/ Sodium Chloride IV 10/01/23 14:59 Q6H JAMEL Lactated Ringer's 1,000 mls @ 125 mls/hr 09/21/23 15:00 09/21/23 15:04 Lactated Ringer's 1000 Ml Bag IV 10/21/23 14:59 125 mls/hr .Q8H JAMEL Administration Lorazepam 0.5 mg 09/21/23 14:49 Lorazepam 0.5mg Tablet PO 10/21/23 14:48 BIDP PRN Anxiety Morphine Sulfate 1 mg 09/21/23 14:53 Morphine 2mg/Ml Syringe IV 10/21/23 14:52 Q2HP PRN Severe Pain (7-10) Nicotine 21 mg 09/21/23 14:50 Nicotine 21mg/24hr Patch TD 10/21/23 14:49 DAILYP PRN Nicotine Cravings Ondansetron HCl 4 mg 09/21/23 14:50 Ondansetron 4mg/2ml Vial IV 10/21/23 14:49 Q6HP PRN Nausea Oxycodone HCl 5 mg 09/21/23 14:50 Oxycodone 5mg Immediate Release Tablet PO 10/21/23 14:49 Q4HP PRN Moderate Pain (4-6) Paroxetine HCl 40 mg 09/22/23 09:00 Paroxetine 20mg Tablet PO 10/22/23 08:59 DAILY JAMEL Polyethylene Glycol 17 gm 09/21/23 14:50 Polyethylene Glycol 3350 17 Gm Packet PO 10/21/23 14:49 BIDP PRN Constipation Promethazine HCl 12.5 mg 09/21/23 14:50 Promethazine Hcl 25mg/Ml 1ml Vial IV 10/21/23 14:49 Q4HP PRN Nausea And Vomiting Senna/Docusate Sodium 1 tab 09/21/23 14:50 Sennosides 8.6mg/Docusate 50mg Tablet PO 10/21/23 14:49 BIDP PRN Constipation Sodium Chloride 10 ml 09/21/23 10:08 Sodium Chloride 0.9% 10ml Vial IV 10/21/23 10:07 NEEDED PRN to Dilute Lorazepam inj Sodium Chloride 10 ml 09/21/23 14:50 Sodium Chloride 0.9% 10ml Flush Syringe IV 10/21/23 14:49 NEEDED PRN Maintain IV Site Sodium Chloride 25 ml 09/21/23 14:50 Sodium Chloride 0.9% 25ml Bag IV 10/21/23 14:49 NEEDED PRN for Use with IV Promethazine Trazodone HCl 100 mg 09/21/23 21:00 Trazodone 50mg Tablet PO 10/21/23 20:59 HS JAMEL Discontinued Medications Generic Name Dose Route Start Last Admin Trade Name Freq PRN Reason Stop Dose Admin Iopamidol 75 ml 09/21/23 10:38 09/21/23 10:43 Iopamidol-370 (76%);100ml Bottle IV 09/21/23 10:39 75 ml ONCE ONE Administration Lorazepam 0.5 mg 09/21/23 10:08 09/21/23 10:28 Lorazepam 2mg/Ml Vial IV 09/21/23 10:09 0.5 mg ONCE ONE Administration Morphine Sulfate 4 mg 09/21/23 10:08 09/21/23 10:28 Morphine 4mg/Ml Syringe IV 09/21/23 10:09 4 mg ONCE ONE Administration Ondansetron HCl 4 mg 09/21/23 10:20 09/21/23 10:28 Ondansetron 4mg/2ml Vial IV 09/21/23 10:21 4 mg ONCE ONE Administration Sodium Chloride 10 ml 09/21/23 10:38 09/21/23 10:43 Sodium Chloride 0.9% 10ml Syr (Rad Only) IV 09/21/23 10:39 10 ml ONCE ONE Administration Sodium Chloride 10 ml 09/21/23 14:50 Sodium Chloride 0.9% 10ml Flush Syringe IV 10/21/23 14:49 NEEDED PRN Maintain IV Site ORDERS Category Date Time Status Type and Screen Stat BBK 09/21/23 10:[address] abdomen pelvis w con Stat Cat Scan 09/21/23 10:08 Completed CBC w/Auto Diff [Complete Blood Count Auto Diff] Stat Lab 09/21/23 10:10 Completed CMP [Comprehensive Metabolic Panel] Stat Lab 09/21/23 10:10 Completed HCG Qualitative, Serum Stat Lab 09/21/23 10:10 Completed Lactic Acid Stat Lab 09/21/23 10:10 Completed MAG [Magnesium] Stat Lab 09/21/23 10:10 Completed PHOS [Phosphorous] Stat Lab 09/21/23 10:10 Completed PT INR [Prothrombin Time INR] Stat Lab 09/21/23 10:10 Completed Blood Culture Stat Micro 09/21/23 10:30 Received Urine Culture Routine Micro 09/21/23 12:41 Ordered Labs were independently interpreted by me, significant for no leukocytosis, hemoglobin 9.1, sodium 133 Imaging was independently visualized and interpreted by me, significant for hematoma versus abscess in the surgical bed. Please refer to radiology report for full details. I discussed case with MA[employer] TECHNICIAN clinical education consultant who sent patient for evaluation. Patient will be admitted to the hospital for further management. Patient remained hemodynamically stable and was admitted to the hospital. Critical Care Critical Care Time Critical Care Time: No
--- NOTE | 2023-09-21 10:08 | CT_ITS ---
FINAL REPORT CLINICAL HISTORY: post hysterectomy pain, fever, drop in Hgb COMPARISON: 03/12/2023 FINDINGS: CT OF THE ABDOMEN AND PELVIS WITH CONTRAST Axial CT images of the abdomen and pelvis were obtained after the administration of IV contrast. Coronal reformatted images were also obtained and reviewed. This study was performed with techniques to keep radiation doses as low as reasonably achievable (ALARA). Individualized dose reduction techniques using automated exposure control or adjustment of mA and/or kV according to the patient's size were employed. Abdomen: There are small pleural effusions. There is mild bibasilar atelectasis.. The heart is normal in size. The liver has an unremarkable appearance, without evidence of mass or biliary ductal dilatation. There is mild nonspecific gallbladder wall thickening. The spleen is unremarkable. No adrenal mass is present. The pancreas has an unremarkable appearance. There is mild bilateral renal scarring. There is a less than 3 mm nonobstructing left renal stone. The aorta is normal in caliber. There is no free fluid or adenopathy. No mass or abnormal fluid collection is seen. Pelvis: The appendix is not well-visualized. There are multiple fluid-filled bowel loops in a nonspecific pattern. Mild bladder wall thickening is likely inflammatory. Post hysterectomy. There is a 9.0 x 6.3 cm fluid collection in the operative bed with foci of air within it. Differential diagnosis includes chronic hematoma or abscess. Stranding in the pelvic fat plane is likely postoperative change/edema. There is no evidence of mass or adenopathy. There is no evidence of bowel obstruction. IMPRESSION: Fluid collection in the operative bed. Differential diagnosis includes chronic hematoma or abscess. Likely inflammatory mild bladder wall thickening. Small pleural effusions Reviewed, Interpreted and Dictated by Clifford Pedraza III, MD Transcribed by Mounika San Authenticated and . [facility]
--- NOTE | 2023-09-21 10:24 | PC.NURSE ---
PT GONE FOR CT
[2023-09-21 10:27] LABS: Basophils % 0.3 % (0.1-2.0); Eosinophils # 0.3 K/mm3 (0.0-0.4); Eosinophils % 2.4 % (0.1-12.0); Hematocrit 27.7 % (37.0-47.0); Hemoglobin 9.1 g/dL (12.2-16.2); Lymphocytes # 1.5 K/mm3 (0.7-4.5); Lymphocytes % 14.2 % (10-50); Mean Corpuscular Hemoglobin 27.7 pg (27.0-31.2); Mean Corpuscular Volume 84.1 fl (81-99); Mean Platelet Volume 8.2 fl (7.4-10.4); Monocytes # 0.6 K/mm3 (0.1-1.0); Monocytes % 6.1 % (1.7-9.3); Neutrophils % 76.9 % (37.0-80.0); Platelet Count 370 K/mm3 (142-424); Red Blood Count 3.29 M/mm3 (4.20-5.40); Red Cell Distribution Width 13.9 % (11.5-17.5); White Blood Count 10.4 K/mm3 (4.8-10.8)
[2023-09-21] MEDS: ONDANSETRON 4MG/2ML VIAL 4 MG IV ×3 (10:28→22:15)
[2023-09-21] MEDS: MORPHINE 4MG/ML SYRINGE 4 MG IV (10:28)
[2023-09-21] MEDS: LORazepam 2MG/ML VIAL 0.5 MG IV (10:28)
[2023-09-21 10:32] LABS: Chloride 102 mmol/L (98-107); Sodium 133 mmol/L (136-145)
[2023-09-21 10:33] LABS: Potassium 3.8 mmoL/L (3.5-5.1)
[2023-09-21 10:34] LABS: INR 1.11 (0.9-1.1); Prothrombin Time 11.9 seconds (10.1-12.5)
[2023-09-21 10:35] LABS: Alanine Aminotransferase 22 U/L (12-78); Albumin Level 3.3 g/dl (3.5-5.0); Albumin/Globulin Ratio 1.2 (1.1-1.8); Alkaline Phosphatase 83 U/L (38-126); Anion Gap 9.8 mEq/L (5-15); Aspartate Amino Transferase 23 U/L (14-36); Bilirubin,Total 0.3 mg/dl (0.2-1.3); Blood Urea Nitrogen 8 mg/dl (7-17); Calcium 8.4 mg/dl (8.4-10.2); Carbon Dioxide 25 mmol/L (22.0-30.0); Creatinine Clearance Estimated 87 mL/min (50-200); Estimated Glomerular Filt Rate 73 ml/min (>60); GFR (African American) 88 ML/MIN (>60); Globulin 2.8 g/dL (1.3-3.2); Glucose 96 mg/dl (74-100); Magnesium 1.9 mg/dl (1.6-2.3); Phosphorous 3.9 mg/dl (2.5-4.5); Total Protein,Serum 6.1 g/dl (6.3-8.2)
[2023-09-21] MEDS: IOPAMIDOL-370 (76%);100ML BOTTLE 75 ML IV (10:43)
[2023-09-21] MEDS: SODIUM CHLORIDE 0.9% 10ML SYR (RAD ONLY) 10 ML IV (10:43)
[2023-09-21 11:49] LABS: HCG Qualitative, Serum Negative (Negative)
--- NOTE | 2023-09-21 12:10 | PC.NURSE ---
o/p with at this time.
--- NOTE | 2023-09-21 12:26 | PC.NURSE ---
verenice shahid, at bedside
--- NOTE | 2023-09-21 12:48 | PC.NURSE ---
HS aware of admission to Dr. Montejo to OB for monitoring for hematoma/abscess
--- NOTE | 2023-09-21 12:50 | PC.NURSE ---
Admissions notified of admit to room 280 for post op complications to . OBS.
--- NOTE | 2023-09-21 13:28 | PC.NURSE ---
Report called to BEL Arevalo
--- NOTE | 2023-09-21 13:29 | HMH.PHAINT1 ---
Pharmacy Intervention Comments: MEDICATION RECONCILIATION COMPLETED ON PATIENT USING EXTERNAL FILL HISTORY FROM PHARMACY AND DISCHARGE SUMMARY FROM PREVIOUS ADMISSION. -ELISEO ROMERO, MICHAELLED
[2023-09-21] MEDS: LACTATED RINGERS 1000ML 1,000 ML 125 ML IV ×2 (15:04→22:23)
[2023-09-21] MEDS: ACETAMINOPHEN 500MG TAB 1000 MG PO ×2 (15:05→20:35)
[2023-09-21] MEDS: PIPERACILLIN/TAZO 3.375 GM in 0.9 % SODIUM CHLORIDE 50 ML IV ×2 (15:50→20:35)
[2023-09-21] MEDS: MORPHINE 2MG/ML SYRINGE 1 MG IV (16:04)
[2023-09-21] MEDS: OXYCODONE 5MG IMMEDIATE RELEASE TABLET 5 MG PO ×2 (17:06→22:15)
--- NOTE | 2023-09-21 17:30 | P.HP_ITS ---
History of Present Illness *Admission Date: 09/21/23 *Reason for visit:: Post op pain and fever *History of present illness: Ezra is a very pleasant 32-year-old 1 week postop from a [facility] with an LSO, and right salpingectomy. Surgery was complicated by an intraoperative hemorrhage. The patient had extensive endometriosis. -Her EBL was 1000 -Patient states that since surgery she has had more discomfort than she anticipated. Yesterday around 5 PM she had a significant increase in her pain. At that time she checked her temperature and it was approximately 102. The patient has been taking Toradol, acetaminophen, oxycodone, and Xanax for pain and anxiety. -Her pain is severe, diffuse, and nonradiating. -States she had a bowel movement over the weekend after using MiraLAX. Reports that she is passing flatus. -Denies fevers prior to fever last night. -Reports that she has not felt well but denies any significant lightheadedness or dizziness. -Denies any nausea or vomiting or pain elsewhere. -She is very anxious [facility] Disclaimer: The information contained in this section may have been updated after the patient was seen, as this information can be updated by other users. Medical History History of nephrolithiasis Chronic pelvic pain in female Endometriosis determined by laparoscopy Depression Anxiety Surgical History History of hernia repair History of oral surgery History of tonsillectomy History of surgery laparoscopy Family History Other No significant family history Social History Smoking Status: Never smoker alcohol intake: current substance use type: denies use current occupational status: employed and other Travel in the last 8 weeks: None household members: family housing: house Review of Systems Review of Systems Review of systems (narrative): Const: endorses headaches, fever/chills, weakness Eyes: Denies change in vision Cardiorespiratory: Denies chest pain, shortness of breath, and cough GI: Endorses abdominal pain, constipation. Denies nausea, vomiting, diarrhea : Endorses pelvic cramping; denies genital lesions, vaginal itching and odor; denies leakage of urine, urinary urgency, frequency, and hematuria. She does have some bladder spasms/some dysuria but it is not with every void Endorses significant anxiety Denies change in libido Meds Home Medications and Allergies Home Medications Medication Instructions Recorded Confirmed Type paroxetine HCl 40 mg tablet 40 mg PO DAILY Mood 09/06/23 09/21/23 History trazodone 100 mg tablet 100 mg PO HS Sleep 09/06/23 09/21/23 History alprazolam 0.5 mg tablet (Xanax) 0.5 mg PO HSP PRN sleep 09/21/23 09/21/23 History oxycodone-acetaminophen 5 mg-325 1 tab PO Q6HP PRN Moderate Pain 09/21/23 09/21/23 History mg tablet (Scale Score 5-6) New Prescriptions to Start Prescriptions: Allergies Allergy/AdvReac Type Severity Reaction Status Date / Time erythromycin base Allergy Unknown -- Verified 09/21/23 09:00 Exam Data for Last 24 hours Vital signs and Labs for Last 24 Hours: Temp Pulse Resp BP Pulse Ox O2 Del Method 98.1 F 94 H 16 105/55 L 100 Room Air 09/21/23 14:00 09/21/23 14:00 09/21/23 14:00 09/21/23 14:00 09/21/23 16:00 09/21/23 16:00 Laboratory Results - last 24 hr 09/21/23 10:10: WBC 10.4, RBC 3.29 L, Hgb 9.1 L, Hct 27.7 L, MCV 84.1, MCH 27.7, MCHC 33.0, RDW 13.9, Plt Count 370, MPV 8.2, Neut % (Auto) 76.9, Lymph % (Auto) 14.2, [place] % (Auto) 6.1, Eos % (Auto) 2.4, Baso % (Auto) 0.3, Neut # (Auto) 8.0 H, Lymph # (Auto) 1.5, [place] # (Auto) 0.6, Eos # (Auto) 0.3, Baso # (Auto) 0.0, PT 11.9, INR 1.11 H, Sodium 133 L, Potassium 3.8, Chloride 102, Carbon Dioxide 25, Anion Gap 9.8, BUN 8, Creatinine 0.90, Estimated Creat Clear 87, Estimated GFR 73, Est GFR ( Amer) 88, Glucose 96, Lactate 1.0, Calcium 8.4, Phosphorus 3.9, Magnesium 1.9, Total Bilirubin 0.3, AST 23, ALT 22, Alkaline Phosphatase 83, Total Protein 6.1 L, Albumin 3.3 L, Globulin 2.8, Albumin/Globulin Ratio 1.2, Serum HCG, Qual Negative, Blood Type O Positive, Antibody Screen Negative I & O for Last 24 hours: Intake & Output 09/18/23 09/19/23 09/20/23 09/21/23 23:59 23:59 23:59 23:59 Output Total 500 / 500 Balance -500 / -500 Weight 275 lb Narrative: Const: NAD, well developed/nourished, obese HEENT: No oral lesions Resp: Normal respiratory effort, no audible wheezing, symmetric chest rise Cardio: Regular rate GI: Abdomen soft, mildly tender with palpation, appropriate for postop period, non-distended. no guarding. Bowel sounds in all 4 quadrants Skin: No rash or visible lesion. 4 laparoscopic incisions that are healing well. The incision in her left lower quadrant does have some surrounding erythema. No significant concern for cellulitis. There is an allergic reaction from the bandage around each laparoscopic incision. Back: Negative for CVAT Neuro:No focal deficits Extrem: No visible deformity Psych: Normal mood and demeanor *Routine HEENT Exam Head: Present normocephalic and atraumatic Eye: Present EOMI, PERRL and normal accommodation; Absent conjunctival icterus, scleral injection, nystagmus or exophthalmos ENT: Present mucous membranes moist *Routine Respiratory Exam Respiratory: Present CTA bilaterally, normal respiratory effort, able to speak in complete sentences and symmetric chest movement; Absent accessory muscle use, decreased breath sounds, rales, respiratory distress, wheezes, distant breath sounds or diminished air movement *Routine Cardiovascular Exam Cardiovascular: Present RRR, Normal S1 and Normal S2; Absent murmur or gallop *Routine Abdominal Exam Abdominal: Present soft and normoactive bowel sounds; Absent tenderness, distended, rebound or guarding *Routine Rectal Exam Rectal:: deferred *Routine Genitalia Exam Genitalia:: normal female Assessment and Plan *Assessment and plan (1) Postoperative fever: Status: Acute Category: Medical Code(s): R50.82 - Postprocedural fever (2) Post-operative hemorrhage: Status: Acute Qualifiers: Surgical complication system/body Area: genitourinary Procedure type: genitourinary Qualified Code(s): N99.820 - Postprocedural hemorrhage of a genitourinary system organ or structure following a genitourinary system procedure Category: Medical (3) H/O hysterectomy with unilateral oophorectomy: Status: Acute Category: Surgical Code(s): Z90.710 - Acquired absence of both cervix and uterus; Z90.721 - Acquired absence of ovaries, unilateral (4) Dysmenorrhea: Status: Acute Category: Medical Code(s): N94.6 - Dysmenorrhea, unspecified (5) Chronic pelvic pain in female: Status: Acute Category: Medical Code(s): R10.2 - Pelvic and perineal pain; G89.29 - Other chronic pain (6) Depression: Status: Acute Qualifiers: Depression Type: unspecified Qualified Code(s): F32.A - Depression, unspecified Category: Medical Code(s): F32.A - Depression, unspecified (7) Anxiety: Status: Acute Category: Medical Code(s): F41.9 - Anxiety disorder, unspecified (8) Endometriosis determined by laparoscopy: Status: Acute Category: Medical Code(s): N80.9 - Endometriosis, unspecified (9) History of nephrolithiasis: Status: Acute Category: Medical Code(s): Z87.442 - Personal history of urinary calculi Plan #1wk post op LAVH -Oxycodone 5 mg p.o. every 4 hours as needed for severe pain -Morphine 1 mg every 2 hours as needed for severe breakthrough pain -Hold Toradol -CBC ordered for the a.m. to trend hemoglobin and white blood cell count -Zofran and Phenergan ordered as needed -Zosyn started for infection prophylaxis -Hemoglobin preoperatively: 13.5, immediately postoperatively: 11.2. Postop day #1: 10.2. 1 week postop: 8.6. -Slightly elevated CRP at 279 -Repeat CT scan ordered for Sunday morning -CT scan from the ED reviewed: There is a 9.0 x 6.3 cm fluid collection in the operative bed with foci of air within it. Differential diagnosis includes chronic hematoma or abscess -Of note on the CT scan there are small pleural effusions with mild bibasilar atelectasis. Incentive spirometer was ordered. We will hold IV fluids and encourage p.o. hydration -Potassium normal, calcium slightly low but still appropriate, magnesium appropriate -Patient has a history of nephrolithiasis and on CT scan a left renal stone less than 3 mm that was nonobstructing was noted. Will continue to follow #Anxiety -Ativan half a milligram p.o. as needed severe anxiety and insomnia -Home meds: Trazodone and paroxetine ordered
--- NOTE | 2023-09-21 19:32 | PC.NURSE ---
All care and documentation by Shyanne Gonzalez RN was completed under my direct supervision.
--- NOTE | 2023-09-21 19:35 | PC.NURSE ---
Pt reported headache at this time, nothing left can be given called dr gonzalez for additonal pain meds prn, new orders for fiorcet 1 tab every 4 hours prn, magnesum 400 bid po bid, verified and repeated back
[2023-09-21] MEDS: BUTALB/ACETAMINOPHEN/CAFFEINE 50MG/325MG/40MG TAB 1 EACH PO (19:48)
[2023-09-21] MEDS: MAGNESIUM OXIDE 400MG TABLET 400 MG PO (19:50)
[2023-09-21] MEDS: LORazepam 0.5MG TABLET 0.5 MG PO (20:35)
[2023-09-21] MEDS: TRAZODONE 50MG TABLET 100 MG PO (20:35)
--- NOTE | 2023-09-21 21:10 | PC.NURSE ---
pts stats were 88 at this time, o2 applied with nc at 2 liters
[2023-09-21] MEDS: SODIUM CHLORIDE 0.9% 10ML FLUSH SYRINGE 10 ML IV (22:17)
--- NOTE | 2023-09-21 22:29 | PC.NURSE ---
Pts vitals showed increased temp, ice pack applied to the groin and both armpits.
--- NOTE | 2023-09-21 23:10 | PC.NURSE ---
Temp has returned to normal, ice packs removed. cb remains in reach
[2023-09-22] VITALS (9 sets, daily range): BP systolic 118–159; BP diastolic 54–86; PULSE 70–91; RESP 16–18; TEMP 36.4–37; O2SAT 94–97
[2023-09-22] MEDS: OXYCODONE 5MG IMMEDIATE RELEASE TABLET 5 MG PO ×2 (03:10→10:16)
[2023-09-22] MEDS: PIPERACILLIN/TAZO 3.375 GM in 0.9 % SODIUM CHLORIDE 50 ML IV ×4 (03:10→20:21)
[2023-09-22] MEDS: ACETAMINOPHEN 500MG TAB 1000 MG PO ×2 (03:11→08:48)
--- NOTE | 2023-09-22 04:37 | PC.NURSE ---
Reassessment done during this time, pt has slept well since 2. Pt has had boughts of headaches but have been relieved with oxy and fiorcet. reports pain is 3 at reassessment and overall feels much better. Pt is on o2 at 2 liters, while sleeping. Vitals have been stable and no reoccurance of fever. Lungs clear throughout and bowels are active. lap sights remain clean and dry without any drainage.abdomen remains soft/ non tender to most areas, areas around incisions, pt reports some mild pain. pt has had several cups of water and remains on iv fluid at 125ml/hr. output has been good and pt reports minimal bleeding. Pt does incentive at periodic times while awake. pts mother remains at bedside. no needs cb remains in reach.
[2023-09-22] MEDS: LACTATED RINGERS 1000ML 1,000 ML 125 ML IV (06:12)
[2023-09-22] MEDS: BUTALB/ACETAMINOPHEN/CAFFEINE 50MG/325MG/40MG TAB 1 EACH PO ×2 (08:47)
[2023-09-22] MEDS: ONDANSETRON 4MG/2ML VIAL 4 MG IV (08:47)
[2023-09-22] MEDS: MAGNESIUM OXIDE 400MG TABLET 400 MG PO ×2 (08:48→20:21)
[2023-09-22] MEDS: PARoxetine 20MG TABLET 40 MG PO (08:48)
[2023-09-22 09:00] LABS: Basophils # 0.1 K/mm3 (0-0.2); Basophils % 0.5 % (0.1-2.0); Eosinophils # 0.2 K/mm3 (0.0-0.4); Eosinophils % 2.6 % (0.1-12.0); Hematocrit 26.9 % (37.0-47.0); Hemoglobin 8.6 g/dL (12.2-16.2); Lymphocytes # 1.6 K/mm3 (0.7-4.5); Lymphocytes % 17.4 % (10-50); Mean Corpuscular HGB Conc 31.9 g/dL (31.8-35.4); Mean Corpuscular Hemoglobin 28.1 pg (27.0-31.2); Mean Platelet Volume 7.7 fl (7.4-10.4); Monocytes # 0.4 K/mm3 (0.1-1.0); Monocytes % 4.4 % (1.7-9.3); Neutrophils # 6.8 K/mm3 (1.8-7.8); Platelet Count 303 K/mm3 (142-424); Red Blood Count 3.05 M/mm3 (4.20-5.40); Red Cell Distribution Width 13.9 % (11.5-17.5); White Blood Count 9.1 K/mm3 (4.8-10.8)
--- NOTE | 2023-09-22 10:18 | PC.NURSE ---
here to see pt.
[2023-09-22] MEDS: PROCHLORPERAZINE 10MG/2ML VIAL 10 MG IV (10:54)
[2023-09-22] MEDS: diphenhydrAMINE 50MG/ML VIAL 25 MG IV (10:54)
[2023-09-22] MEDS: DEXAMETHASONE 4MG/ML 1ML VIAL 4 MG IV (10:54)
[2023-09-22 12:11] LABS: Adenovirus,PCR Not Detected (NotDetected); Coronavirus 19, PCR Not Detected (NotDetected); Coronavirus 229E Not Detected (NotDetected); Coronavirus NL63 Not Detected (NotDetected); Coronavirus OC43 Not Detected (NotDetected); Coronovirus HKU1,PCR Not Detected (NotDetected); Human Metapneumovirus Not Detected (NotDetected); Influenza A, PCR Not Detected (NotDetected); Influenza AH1, 2009 Not Detected (NotDetected); Influenza AH1, PCR Not Detected (NotDetected); Influenza AH3,PCR Not Detected (NotDetected); Influenza B, PCR Not Detected (NotDetected); Parainfluenza 1, PCR Not Detected (NotDetected); Parainfluenza 2, PCR Not Detected (NotDetected); Parainfluenza 3, PCR Not Detected (NotDetected); Parainfluenza 4, PCR Not Detected (NotDetected); Respiratory Syncytial Virus Not Detected (NotDetected); Rhinovirus/Enterovirus Not Detected (NotDetected)
--- NOTE | 2023-09-22 12:15 | PC.NURSE ---
Pt has been sleeping soundly since receiving headache cocktail . She is snoring. Pt's mother remains at bs.
[2023-09-22 12:24] LABS: Strep Scrn Group A (Rapid) Negative (Negative)
--- NOTE | 2023-09-22 12:32 | EXP.PN ---
Subjective *Date: 09/22/23 *Time: 12:32 Interval history: Ignacia is a pleasant 32-year-old who is hospital day #2 postop day #9. She was admitted secondary to postop pain and fever. She was found to have a 9 cm suspected intra-abdominal hematoma. On exam this morning her mother and father at bedside with her. Differential diagnosis includes intra-abdominal abscess although there is no leukocytosis on her labs. -Overnight she did have a low-grade temperature elevation at 100.3. It resolved without any antipyretics -This morning the patient states her primary concern is a migraine. She does have some lower abdominal discomfort which is now primarily on the right side. Exam Data for Last 24 hours Vital signs and Labs for Last 24 Hours: Temp Pulse Resp BP Pulse Ox O2 Del Method O2 Flow Rate 97.5 F L 88 17 120/59 L 96 Room Air 2 09/22/23 08:30 09/22/23 11:11 09/22/23 11:11 09/22/23 08:30 09/22/23 11:11 09/22/23 11:11 09/22/23 04:00 Laboratory Results - last 24 hr 09/21/23 10:10: Lactate 1.0 09/22/23 08:36: WBC 9.1, RBC 3.05 L, Hgb 8.6 L, Hct 26.9 L, MCV 88.0, MCH 28.1, MCHC 31.9, RDW 13.9, Plt Count 303, MPV 7.7, Neut % (Auto) 75.0, Lymph % (Auto) 17.4, [place] % (Auto) 4.4, Eos % (Auto) 2.6, Baso % (Auto) 0.5, Neut # (Auto) 6.8, Lymph # (Auto) 1.6, [place] # (Auto) 0.4, Eos # (Auto) 0.2, Baso # (Auto) 0.1 09/22/23 11:20: Group A Strep Rapid Negative I & O for Last 24 hours: Intake & Output 09/19/23 09/20/23 09/21/23 09/22/23 23:59 23:59 23:59 23:59 Output Total 500 / 500 0 / 0 Balance -500 / -500 0 / 0 Weight 275 lb Constitutional Constitutional: no acute distress *Routine HEENT Exam Head: Present normocephalic and atraumatic Eye: Present EOMI and PERRL; Absent conjunctival icterus ENT: Present mucous membranes moist *Routine Neck Exam Neck: Present full ROM *Routine Respiratory Exam Respiratory: Present CTA bilaterally, normal respiratory effort, able to speak in complete sentences and symmetric chest movement; Absent accessory muscle use, decreased breath sounds, respiratory distress, wheezes, crackles, distant breath sounds or diminished air movement *Routine Cardiovascular Exam Cardiovascular: Present RRR *Routine Abdominal Exam Abdominal: Present soft, normoactive bowel sounds (In all 4 quadrants), tenderness (Appropriate for the postoperative period), obese and surgical scars (Her decision is are clean and dry); Absent distended, rebound, guarding, firm or rigid *Routine Exam Patient deferred: external exam *Routine Extremities Exam Extremities: Present full ROM; Absent cyanosis, clubbing, edema, calf tenderness or pallor *Routine Skin Exam Skin: Present intact, urticaria (Around laparoscopic incisions from a reaction to the bandage) and normal turgor; Absent erythema *Routine Neurological Exam Neurological: Present alert and oriented X3 Assessment and Plan *Assessment and plan (1) Postoperative fever: Status: Acute Category: Medical Code(s): R50.82 - Postprocedural fever (2) Post-operative hemorrhage: Status: Acute Qualifiers: Surgical complication system/body Area: genitourinary Procedure type: genitourinary Qualified Code(s): N99.820 - Postprocedural hemorrhage of a genitourinary system organ or structure following a genitourinary system procedure Category: Medical (3) H/O hysterectomy with unilateral oophorectomy: Status: Acute Category: Surgical Code(s): Z90.710 - Acquired absence of both cervix and uterus; Z90.721 - Acquired absence of ovaries, unilateral (4) Dysmenorrhea: Status: Acute Category: Medical Code(s): N94.6 - Dysmenorrhea, unspecified (5) Chronic pelvic pain in female: Status: Acute Category: Medical Code(s): R10.2 - Pelvic and perineal pain; G89.29 - Other chronic pain (6) Depression: Status: Acute Qualifiers: Depression Type: unspecified Qualified Code(s): F32.A - Depression, unspecified Category: Medical Code(s): F32.A - Depression, unspecified (7) Anxiety: Status: Acute Category: Medical Code(s): F41.9 - Anxiety disorder, unspecified (8) Endometriosis determined by laparoscopy: Status: Acute Category: Medical Code(s): N80.9 - Endometriosis, unspecified (9) History of nephrolithiasis: Status: Acute Category: Medical Code(s): Z87.442 - Personal history of urinary calculi Plan #1wk post op LAVH -Oxycodone 5 mg p.o. every 4 hours as needed for severe pain -Morphine 1 mg every 2 hours as needed for severe breakthrough pain -Hold Toradol -CBC ordered for the a.m. to trend hemoglobin and white blood cell count -Zofran and Phenergan ordered as needed -Zosyn started for infection prophylaxis -Hemoglobin preoperatively: 13.5, immediately postoperatively: 11.2. Postop day #1: 10.2. 1 week postop: 8.6. -Slightly elevated CRP at 279 -Repeat CT scan ordered for Sunday morning -CT scan from the ED reviewed: There is a 9.0 x 6.3 cm fluid collection in the operative bed with foci of air within it. Differential diagnosis includes chronic hematoma or abscess -Of note on the CT scan there are small pleural effusions with mild bibasilar atelectasis. Incentive spirometer was ordered. We will hold IV fluids and encourage p.o. hydration -Potassium normal, calcium slightly low but still appropriate, magnesium appropriate -Patient has a history of nephrolithiasis and on CT scan a left renal stone less than 3 mm that was nonobstructing was noted. Will continue to follow #Anxiety -Ativan half a milligram p.o. as needed severe anxiety and insomnia -Home meds: Trazodone and paroxetine ordered Hosptial Day #2 -Hemoglobin remained stable: 8.6 at 830 yesterday morning and 8.6 on recheck at 830 this morning -Leukocytosis: 10.4 at 830 on 09/21/2023-->9.1 at 830 on 09/22/2023 -Migraine cocktail from the ED ordered to include diphenhydramine, prochlorperazine, and dexamethasone. Patient was able to rest after this was administered -Continue to hold Toradol and ibuprofen for hemorrhage prophylaxis -Vitals remained stable not suspicious for ongoing intra abdominal hemorrhage -Magnesium oxide 400 mg twice daily added for migraine control -Acetaminophen dosage decreased to 500 mg every 6 hours so that we did not hit or Tylenol max daily dose -Fioricet was ordered for migraine management -Incentive spirometer encouraged -Abdominal binding and ambulation encouraged -Continue Zosyn -Continue to monitor vitals and will repeat her CT scan in the morning and make a decision based on those results.
--- NOTE | 2023-09-22 12:32 | PC.NURSE ---
present in department again reviewing pt's chart.
--- NOTE | 2023-09-22 13:03 | PC.NURSE ---
Pt continues sleeping.
[2023-09-22] MEDS: ACETAMINOPHEN 500MG TAB 500 MG PO (15:30)
--- NOTE | 2023-09-22 16:18 | PC.NURSE ---
Pt has rested well after receiving headache cocktail . She has actually slept for several hours this shift. Tolerating regular diet. No n/v this shift. Lungs remain clear. BS remain normal active x4 quads. Now wearing abdominal binder to abdomen and reports some relief of left lower quad pain that she was experiencing this morning. V/S have remained stable. Afebrile. IV LR no longer infusing. Saline lock patent and flushes easily. Continues to receive IV antibiotics. Pt's mother remains at bs.
[2023-09-22] MEDS: TRAZODONE 50MG TABLET 100 MG PO (20:21)
[2023-09-23] MEDS: LORazepam 0.5MG TABLET 0.5 MG PO (00:07)
--- NOTE | 2023-09-23 00:28 | PC.NURSE ---
Pt reported having gas pain, called dr gonzalez new orders for simethicone 160 po q4 hrs prn for gas verified and repeated back. order faxed to pharmacy
[2023-09-23] MEDS: SIMETHICONE 80MG CHEWABLE TABLET 160 MG PO (00:39)
[2023-09-23] MEDS: PIPERACILLIN/TAZO 3.375 GM in 0.9 % SODIUM CHLORIDE 50 ML IV ×2 (02:14→08:59)
[2023-09-23 02:15] VITALS: BP 130/76; PULSE 67; RESP 17; TEMP 36.9; O2SAT 97
[2023-09-23 04:00] VITALS: BP 146/86; PULSE 70; RESP 18; TEMP 36.8; O2SAT 98
--- NOTE | 2023-09-23 04:00 | PC.NURSE ---
Pt has done well throughout the shift. pt has required nearly no prn meds tonight. vitals have remained stable, and no fever tonight. lungs clear throughout, bowels active in all quads. surgical sights clean dry and intact without any drainage. pt wears o2 while sleeping and stats remain stable, pt ambulating to bathroom independently. iv flushes well. cb within reach
--- NOTE | 2023-09-23 06:50 | EXP.PN ---
Subjective *Date: 09/23/23 *Time: 06:50 Interval history: Ignacia is a pleasant 32-year-old who is hospital day #3 postop day #10. She was admitted secondary to postop pain and fever. She was found to have a 9 cm suspected intra-abdominal hematoma. On exam this morning her mother and father at bedside with her. Differential diagnosis includes intra-abdominal abscess although there is no leukocytosis on her labs. -Overnight she did much better and was able to rest most of the night. Reports her migraine has significantly improved. She will have a repeat CT scan this morning. Exam Data for Last 24 hours Vital signs and Labs for Last 24 Hours: Temp Pulse Resp BP Pulse Ox O2 Del Method O2 Flow Rate 98.2 F 70 18 146/86 H 98 Nasal Cannula 2 09/23/23 04:00 09/23/23 04:00 09/23/23 04:00 09/23/23 04:00 09/23/23 04:00 09/23/23 06:00 09/23/23 06:00 Laboratory Results - last 24 hr 09/22/23 08:36: WBC 9.1, RBC 3.05 L, Hgb 8.6 L, Hct 26.9 L, MCV 88.0, MCH 28.1, MCHC 31.9, RDW 13.9, Plt Count 303, MPV 7.7, Neut % (Auto) 75.0, Lymph % (Auto) 17.4, [place] % (Auto) 4.4, Eos % (Auto) 2.6, Baso % (Auto) 0.5, Neut # (Auto) 6.8, Lymph # (Auto) 1.6, [place] # (Auto) 0.4, Eos # (Auto) 0.2, Baso # (Auto) 0.1 09/22/23 11:20: Chlamy pneumoniae PCR TNP, Adenovirus (PCR) Not detected, B. pertussis DNA (PCR) TNP, Coronavirus OC43 (PCR) Not detected, Coronavirus HKU1 (PCR) Not detected, Coronavirus 229E (PCR) Not detected, SARS-CoV-2 (PCR) Not detected, Coronavirus NL63 (PCR) Not detected, Human Metapneumovir PCR Not detected, Influenza A (H1) PCR Not detected, Influ A (H1N1/09) PCR Not detected, Influenza A (H3) PCR Not detected, Influenza Type A (PCR) Not detected, Influenza Type B (PCR) Not detected, M. pneumoniae (PCR) TNP, Parainfluenza 1 (PCR) Not detected, Parainfluenza 2 (PCR) Not detected, Parainfluenza 3 (PCR) Not detected, Parainfluenza 4 (PCR) Not detected, RSV (PCR) Not detected, Entero/Rhino (PCR) Not detected, Group A Strep Rapid Negative I & O for Last 24 hours: Intake & Output 09/20/23 09/21/23 09/22/23 09/23/23 23:59 23:59 23:59 23:59 Output Total 500 / 500 0 / 0 Balance -500 / -500 0 / 0 Weight 275 lb Constitutional Constitutional: no acute distress *Routine HEENT Exam Head: Present normocephalic and atraumatic Eye: Present EOMI and PERRL; Absent conjunctival icterus ENT: Present mucous membranes moist *Routine Neck Exam Neck: Present full ROM *Routine Respiratory Exam Respiratory: Present CTA bilaterally, normal respiratory effort, able to speak in complete sentences and symmetric chest movement; Absent accessory muscle use, decreased breath sounds, respiratory distress, wheezes, crackles, distant breath sounds or diminished air movement *Routine Cardiovascular Exam Cardiovascular: Present RRR *Routine Abdominal Exam Abdominal: Present soft, normoactive bowel sounds (In all 4 quadrants), tenderness (Appropriate for the postoperative period), obese and surgical scars (Her decision is are clean and dry); Absent distended, rebound, guarding, firm or rigid *Routine Exam Patient deferred: external exam *Routine Extremities Exam Extremities: Present full ROM; Absent cyanosis, clubbing, edema, calf tenderness or pallor *Routine Skin Exam Skin: Present intact, urticaria (Around laparoscopic incisions from a reaction to the bandage) and normal turgor; Absent erythema *Routine Neurological Exam Neurological: Present alert and oriented X3 Assessment and Plan *Assessment and plan (1) Postoperative fever: Status: Acute Category: Medical Code(s): R50.82 - Postprocedural fever (2) Post-operative hemorrhage: Status: Acute Qualifiers: Surgical complication system/body Area: genitourinary Procedure type: genitourinary Qualified Code(s): N99.820 - Postprocedural hemorrhage of a genitourinary system organ or structure following a genitourinary system procedure Category: Medical (3) H/O hysterectomy with unilateral oophorectomy: Status: Acute Category: Surgical Code(s): Z90.710 - Acquired absence of both cervix and uterus; Z90.721 - Acquired absence of ovaries, unilateral (4) Dysmenorrhea: Status: Acute Category: Medical Code(s): N94.6 - Dysmenorrhea, unspecified (5) Chronic pelvic pain in female: Status: Acute Category: Medical Code(s): R10.2 - Pelvic and perineal pain; G89.29 - Other chronic pain (6) Depression: Status: Acute Qualifiers: Depression Type: unspecified Qualified Code(s): F32.A - Depression, unspecified Category: Medical Code(s): F32.A - Depression, unspecified (7) Anxiety: Status: Acute Category: Medical Code(s): F41.9 - Anxiety disorder, unspecified (8) Endometriosis determined by laparoscopy: Status: Acute Category: Medical Code(s): N80.9 - Endometriosis, unspecified (9) History of nephrolithiasis: Status: Acute Category: Medical Code(s): Z87.442 - Personal history of urinary calculi Plan #1wk post op LAVH -Oxycodone 5 mg p.o. every 4 hours as needed for severe pain -Morphine 1 mg every 2 hours as needed for severe breakthrough pain -Hold Toradol -CBC ordered for the a.m. to trend hemoglobin and white blood cell count -Zofran and Phenergan ordered as needed -Zosyn started for infection prophylaxis -Hemoglobin preoperatively: 13.5, immediately postoperatively: 11.2. Postop day #1: 10.2. 1 week postop: 8.6. -Slightly elevated CRP at 279 -Repeat CT scan ordered for Sunday morning -CT scan from the ED reviewed: There is a 9.0 x 6.3 cm fluid collection in the operative bed with foci of air within it. Differential diagnosis includes chronic hematoma or abscess -Of note on the CT scan there are small pleural effusions with mild bibasilar atelectasis. Incentive spirometer was ordered. We will hold IV fluids and encourage p.o. hydration -Potassium normal, calcium slightly low but still appropriate, magnesium appropriate -Patient has a history of nephrolithiasis and on CT scan a left renal stone less than 3 mm that was nonobstructing was noted. Will continue to follow #Anxiety -Ativan half a milligram p.o. as needed severe anxiety and insomnia -Home meds: Trazodone and paroxetine ordered Hosptial Day #2 -Hemoglobin remained stable: 8.6 at 830 yesterday morning and 8.6 on recheck at 830 this morning -Leukocytosis: 10.4 at 830 on 09/21/2023-->9.1 at 830 on 09/22/2023 -Migraine cocktail from the ED ordered to include diphenhydramine, prochlorperazine, and dexamethasone. Patient was able to rest after this was administered -Continue to hold Toradol and ibuprofen for hemorrhage prophylaxis -Vitals remained stable not suspicious for ongoing intra abdominal hemorrhage -Magnesium oxide 400 mg twice daily added for migraine control -Acetaminophen dosage decreased to 500 mg every 6 hours so that we did not hit or Tylenol max daily dose -Fioricet was ordered for migraine management -Incentive spirometer encouraged -Abdominal binding and ambulation encouraged -Continue Zosyn -Continue to monitor vitals and will repeat her CT scan in the morning and make a decision based on those results. Hospital day #3 -CBC and CMP pending -CT scan ordered. Will follow-up after this is resulted -At this time we will continue Zosyn -Continue to encourage incentive spirometer
[2023-09-23 07:30] LABS: Basophils % 0.3 % (0.1-2.0); Eosinophils # 0.1 K/mm3 (0.0-0.4); Eosinophils % 0.8 % (0.1-12.0); Hematocrit 29.1 % (37.0-47.0); Lymphocytes # 1.6 K/mm3 (0.7-4.5); Lymphocytes % 12.7 % (10-50); Mean Corpuscular HGB Conc 31.1 g/dL (31.8-35.4); Mean Corpuscular Hemoglobin 27.4 pg (27.0-31.2); Mean Corpuscular Volume 88.1 fl (81-99); Mean Platelet Volume 8.5 fl (7.4-10.4); Monocytes # 0.7 K/mm3 (0.1-1.0); Monocytes % 5.6 % (1.7-9.3); Neutrophils # 9.9 K/mm3 (1.8-7.8); Neutrophils % 80.6 % (37.0-80.0); Platelet Count 389 K/mm3 (142-424); White Blood Count 12.3 K/mm3 (4.8-10.8)
[2023-09-23 07:38] LABS: Alanine Aminotransferase 26 U/L (12-78); Albumin Level 3.5 g/dl (3.5-5.0); Albumin/Globulin Ratio 1.1 (1.1-1.8); Alkaline Phosphatase 82 U/L (38-126); Anion Gap 11.2 mEq/L (5-15); Aspartate Amino Transferase 30 U/L (14-36); Bilirubin,Total 0.2 mg/dl (0.2-1.3); Blood Urea Nitrogen 7 mg/dl (7-17); Calcium 8.6 mg/dl (8.4-10.2); Carbon Dioxide 26 mmol/L (22.0-30.0); Chloride 104 mmol/L (98-107); Creatinine Clearance Estimated 98 mL/min (50-200); Estimated Glomerular Filt Rate 83 ml/min (>60); GFR (African American) 101 ML/MIN (>60); Globulin 3.3 g/dL (1.3-3.2); Glucose 117 mg/dl (74-100); Magnesium 2.5 mg/dl (1.6-2.3); Potassium 4.2 mmoL/L (3.5-5.1); Sodium 137 mmol/L (136-145); Total Protein,Serum 6.8 g/dl (6.3-8.2)
--- NOTE | 2023-09-23 07:50 | PC.NURSE ---
Pt taken to radiology via for scheduled CT scan.
--- NOTE | 2023-09-23 08:00 | CT_ITS ---
PROCEDURE INFORMATION: Exam: CT Abdomen And Pelvis With Contrast Exam date and time: 09/23/2023 7:44 AM Age: 32 years old Clinical indication: Condition or disease; Other: Follow up on pelvic hematoma; Prior surgery; Surgery date: 1-6 months; Surgery type: Hysterectomy TECHNIQUE: Imaging protocol: Computed tomography of the abdomen and pelvis with contrast. Radiation optimization: All CT scans at this facility use at least one of these dose optimization techniques: automated exposure control; mA and/or kV adjustment per patient size (includes targeted exams where dose is matched to clinical indication); or iterative reconstruction. Contrast material: ISOVUE; Contrast volume: 75 ml; Contrast route: IV; COMPARISON: CT ABDOMEN PELVIS W CON 09/21/2023 10:36 AM FINDINGS: Lungs: Mild right basilar atelectasis. Pleural spaces: Small pleural effusions bilaterally, slightly decreased in size. Liver: Normal. No mass. Gallbladder and bile ducts: Normal. No calcified stones. No ductal dilation. Pancreas: Normal. No ductal dilation. Spleen: Normal. No splenomegaly. Adrenal glands: Normal. No mass. Kidneys and ureters: Cortical renal scarring bilaterally. Punctate nonobstructing left renal calculus inferior pole. No hydronephrosis. Stomach and bowel: Unremarkable. No obstruction. No mucosal thickening. Appendix: No evidence of appendicitis. Intraperitoneal space: Unremarkable. No free air. No significant fluid collection. Vasculature: Unremarkable. No abdominal aortic aneurysm. Lymph nodes: Mild mesenteric and retroperitoneal lymphadenopathy, stable. Aortocaval lymph node measures 1.3 cm. Urinary bladder: Unremarkable as visualized. Reproductive: Previous hysterectomy with multiple surgical clips. Bones/joints: Unremarkable. No acute fracture. Soft tissues: Fluid collection in the surgical site again noted, slightly decreased in size. Previously measuring 6.3 x 8 cm, currently measuring 5.5 x 7.8 cm. Gas noted within this collection. Differential continues to be hematoma or abscess. Decreasing postsurgical gas in the anterior abdominal wall. IMPRESSION: 1. Small pleural effusions bilaterally, slightly decreased in size. 2. Fluid collection in the surgical site again noted, slightly decreased in size. Previously measuring 6.3 x 8 cm, currently measuring 5.5 x 7.8 cm. Gas noted within this collection. Differential continues to be hematoma or abscess. 3. Decreasing postsurgical gas in the anterior abdominal wall. 4. Mild mesenteric and retroperitoneal lymphadenopathy, stable. Aortocaval lymph node measures 1.3 cm.
[2023-09-23 08:02] VITALS: BP 137/84; PULSE 82; RESP 18; TEMP 36.8; O2SAT 96
[2023-09-23 08:03] VITALS: O2SAT 96
--- NOTE | 2023-09-23 08:18 | [facility].ITSTN ---
Pt was scanned twice due to IV difficulties. IV flushed good and I proceeded with contrast however the hub on IV started leaking when contrast was injected. Contrast was stopped. October from ED started a new IV. Pt was scanned again using the new IV and contrast injected without any leaking.
--- NOTE | 2023-09-23 08:25 | PC.NURSE ---
Pt now back from CT scan, now sitting up in bed eating breakfast. Denies any needs at this time.
[2023-09-23] MEDS: SODIUM CHLORIDE 0.9% 10ML SYR (RAD ONLY) 10 ML IV (08:32)
[2023-09-23] MEDS: IOPAMIDOL-370 (76%);100ML BOTTLE 75 ML IV (08:33)
[2023-09-23] MEDS: MAGNESIUM OXIDE 400MG TABLET 400 MG PO (08:59)
[2023-09-23] MEDS: PARoxetine 20MG TABLET 40 MG PO (08:59)
--- NOTE | 2023-09-23 09:12 | PC.NURSE ---
Resting without complaints. Denies any needs at this time. States that she is just tired . Pt's mother remains at bs attentive to her needs.
--- NOTE | 2023-09-23 09:26 | PC.NURSE ---
notified via phone of CT results.
[2023-09-23] MEDS: POLYETHYLENE GLYCOL 3350 17 GM PACKET PO (12:18)
--- NOTE | 2023-09-23 15:10 | EXP.DC.SUM ---
General Admission date:: 09/21/23 Discharge date: 09/23/23 HPI HPI HPI: Ezra is a very pleasant 32-year-old 1 week postop from a [facility] with an LSO, and right salpingectomy. Surgery was complicated by an intraoperative hemorrhage. The patient had extensive endometriosis. -Her EBL was 1000 -Patient states that since surgery she has had more discomfort than she anticipated. Yesterday around 5 PM she had a significant increase in her pain. At that time she checked her temperature and it was approximately 102. The patient has been taking Toradol, acetaminophen, oxycodone, and Xanax for pain and anxiety. -Her pain is severe, diffuse, and nonradiating. -States she had a bowel movement over the weekend after using MiraLAX. Reports that she is passing flatus. -Denies fevers prior to fever last night. -Reports that she has not felt well but denies any significant lightheadedness or dizziness. -Denies any nausea or vomiting or pain elsewhere. -She is very anxious Hospital Course Hospital Course Hospital Course: Ignacia is a pleasant 32-year-old who who was admitted on postop day #8 secondary to increasing pain, and a postoperative fever. CT scan noted an approximately 8 cm intra-abdominal hematoma versus abscess. She was admitted and started on a pain management regimen as well as IV Zosyn. CT scan was repeated this morning at postop day #10 and showed the pelvic fluid collection at the surgical site was slightly decreased in size. Previously measuring 6.3 x 8 cm and currently today measuring 5.5 x 7.[address] small bilateral pleural effusions were also noted and these were noted to be slightly decreased in size. Hemoglobin has remained stable throughout this admission. Platelets have remained stable throughout this admission. White count has remained stable throughout this admission. We obtained blood cultures, urine cultures, respiratory panel, and a strep swab all of which are still pending on discharge. On hospital day #2 patient complained of a migraine which is significantly improved today on day of discharge. Discharge instructions reviewed with the patient, her mother, and her father. All questions and concerns were addressed to their satisfaction. Exam Data for Last 24 hours Vital signs and Labs for Last 24 Hours: Temp Pulse Resp BP Pulse Ox O2 Del Method O2 Flow Rate 98.3 F 82 18 137/84 96 Room Air 2 09/23/23 08:02 09/23/23 08:02 09/23/23 08:02 09/23/23 08:02 09/23/23 08:03 09/23/23 14:01 09/23/23 06:00 Laboratory Results - last 24 hr 09/22/23 11:20: Chlamy pneumoniae PCR TNP, Adenovirus (PCR) Not detected, B. pertussis DNA (PCR) TNP, Coronavirus OC43 (PCR) Not detected, Coronavirus HKU1 (PCR) Not detected, Coronavirus 229E (PCR) Not detected, SARS-CoV-2 (PCR) Not detected, Coronavirus NL63 (PCR) Not detected, Human Metapneumovir PCR Not detected, Influenza A (H1) PCR Not detected, Influ A (H1N1/09) PCR Not detected, Influenza A (H3) PCR Not detected, Influenza Type A (PCR) Not detected, Influenza Type B (PCR) Not detected, M. pneumoniae (PCR) TNP, Parainfluenza 1 (PCR) Not detected, Parainfluenza 2 (PCR) Not detected, Parainfluenza 3 (PCR) Not detected, Parainfluenza 4 (PCR) Not detected, RSV (PCR) Not detected, Entero/Rhino (PCR) Not detected 09/23/23 07:14: WBC 12.3 H D, RBC 3.30 L, Hgb 9.0 L, Hct 29.1 L, MCV 88.1, MCH 27.4, MCHC 31.1 L, RDW 14.0, Plt Count 389 D, MPV 8.5, Neut % (Auto) 80.6 H, Lymph % (Auto) 12.7, Cottle % (Auto) 5.6, Eos % (Auto) 0.8, Baso % (Auto) 0.3, Neut # (Auto) 9.9 H, Lymph # (Auto) 1.6, Cottle # (Auto) 0.7, Eos # (Auto) 0.1, Baso # (Auto) 0.0, Sodium 137, Potassium 4.2, Chloride 104, Carbon Dioxide 26, Anion Gap 11.2, BUN 7, Creatinine 0.80, Estimated Creat Clear 98, Estimated GFR 83, Est GFR ( Amer) 101, Glucose 117 H, Calcium 8.6, Magnesium 2.5 H D, Total Bilirubin 0.2, AST 30 D, ALT 26, Alkaline Phosphatase 82, Total Protein 6.8, Albumin 3.5, Globulin 3.3 H, Albumin/Globulin Ratio 1.1 I & O for Last 24 hours: Intake & Output 09/20/23 09/21/23 09/22/23 09/23/23 23:59 23:59 23:59 23:59 Output Total 500 / 500 0 / 0 Balance -500 / -500 0 / 0 Weight 275 lb Narrative: Const: NAD, well developed/nourished, obese HEENT: No oral lesions Resp: Normal respiratory effort, no audible wheezing, symmetric chest rise Cardio: Regular rate GI: Abdomen soft, mildly tender with palpation, appropriate for postop period, non-distended. no guarding. Bowel sounds in all 4 quadrants Skin: No rash or visible lesion. 4 laparoscopic incisions that are healing well. The incision in her left lower quadrant does have some surrounding erythema that is improving. Back: Negative for CVAT Neuro:No focal deficits Extrem: No visible deformity Psych: Normal mood and demeanor Constitutional Constitutional: no acute distress *Routine HEENT Exam Head: Present normocephalic Eye: Present EOMI and PERRL ENT: Present mucous membranes moist *Routine Neck Exam Neck: Present supple; Absent lymphadenopathy *Routine Respiratory Exam Respiratory: Present CTA bilaterally *Routine Cardiovascular Exam Cardiovascular: Present RRR *Routine Abdominal Exam Abdominal: Present soft and normoactive bowel sounds; Absent tenderness *Routine Extremities Exam Extremities: Absent cyanosis, clubbing or edema *Routine Skin Exam Skin: Present warm; Absent rash *Routine Neurological Exam Neurological: Present alert and oriented X3 Results Data Completed and Pending Labs on day of discharge: Labs from last 24 hours 09/23/23 09/22/23 07:14 11:20 WBC 12.3 H D RBC 3.30 L Hgb 9.0 L Hct 29.1 L MCV 88.1 MCH 27.4 MCHC 31.1 L RDW 14.0 Plt Count 389 D MPV 8.5 Neut % (Auto) 80.6 H Lymph % (Auto) 12.7 Cottle % (Auto) 5.6 Eos % (Auto) 0.8 Baso % (Auto) 0.3 Neut # (Auto) 9.9 H Lymph # (Auto) 1.6 Cottle # (Auto) 0.7 Eos # (Auto) 0.1 Baso # (Auto) 0.0 Sodium 137 Potassium 4.2 Chloride 104 Carbon Dioxide 26 Anion Gap 11.2 BUN 7 Creatinine 0.80 Estimated Creat Clear 98 Estimated GFR 83 Est GFR ( Amer) 101 Glucose 117 H Calcium 8.6 Magnesium 2.5 H D Total Bilirubin 0.2 AST 30 D ALT 26 Alkaline Phosphatase 82 Total Protein 6.8 Albumin 3.5 Globulin 3.3 H Albumin/Globulin Ratio 1.1 Chlamy pneumoniae PCR TNP Adenovirus (PCR) Not detected B. pertussis DNA (PCR) TNP Coronavirus OC43 (PCR) Not detected Coronavirus HKU1 (PCR) Not detected Coronavirus 229E (PCR) Not detected SARS-CoV-2 (PCR) Not detected Coronavirus NL63 (PCR) Not detected Human Metapneumovir PCR Not detected Influenza A (H1) PCR Not detected Influ A (H1N1/09) PCR Not detected Influenza A (H3) PCR Not detected Influenza Type A (PCR) Not detected Influenza Type B (PCR) Not detected M. pneumoniae (PCR) TNP Parainfluenza 1 (PCR) Not detected Parainfluenza 2 (PCR) Not detected Parainfluenza 3 (PCR) Not detected Parainfluenza 4 (PCR) Not detected RSV (PCR) Not detected Entero/Rhino (PCR) Not detected DS: Diagnosis Discharge Diagnosis (1) Postoperative fever: Status: Acute Code(s): R50.82 - Postprocedural fever (2) Post-operative hemorrhage: Status: Acute Qualifiers: Procedure type: genitourinary Surgical complication system/body Area: genitourinary Qualified Code(s): N99.820 - Postprocedural hemorrhage of a genitourinary system organ or structure following a genitourinary system procedure (3) H/O hysterectomy with unilateral oophorectomy: Status: Acute Code(s): Z90.710 - Acquired absence of both cervix and uterus; Z90.721 - Acquired absence of ovaries, unilateral (4) Dysmenorrhea: Status: Acute Code(s): N94.6 - Dysmenorrhea, unspecified (5) Chronic pelvic pain in female: Status: Acute Code(s): R10.2 - Pelvic and perineal pain; G89.29 - Other chronic pain (6) Depression: Status: Acute Code(s): F32.A - Depression, unspecified Qualifiers: Depression Type: unspecified Qualified Code(s): F32.A - Depression, unspecified (7) Anxiety: Status: Acute Code(s): F41.9 - Anxiety disorder, unspecified (8) Endometriosis determined by laparoscopy: Status: Acute Code(s): N80.9 - Endometriosis, unspecified (9) History of nephrolithiasis: Status: Acute Code(s): Z87.442 - Personal history of urinary calculi Problem details: #1wk post op LAVH -Oxycodone 5 mg p.o. every 4 hours as needed for severe pain -Morphine 1 mg every 2 hours as needed for severe breakthrough pain -Hold Toradol -CBC ordered for the a.m. to trend hemoglobin and white blood cell count -Zofran and Phenergan ordered as needed -Zosyn started for infection prophylaxis -Hemoglobin preoperatively: 13.5, immediately postoperatively: 11.2. Postop day #1: 10.2. 1 week postop: 8.6. -Slightly elevated CRP at 279 -Repeat CT scan ordered for Sunday morning -CT scan from the ED reviewed: There is a 9.0 x 6.3 cm fluid collection in the operative bed with foci of air within it. Differential diagnosis includes chronic hematoma or abscess -Of note on the CT scan there are small pleural effusions with mild bibasilar atelectasis. Incentive spirometer was ordered. We will hold IV fluids and encourage p.o. hydration -Potassium normal, calcium slightly low but still appropriate, magnesium appropriate -Patient has a history of nephrolithiasis and on CT scan a left renal stone less than 3 mm that was nonobstructing was noted. Will continue to follow #Anxiety -Ativan half a milligram p.o. as needed severe anxiety and insomnia -Home meds: Trazodone and paroxetine ordered Hosptial Day #2 -Hemoglobin remained stable: 8.6 at 830 yesterday morning and 8.6 on recheck at 830 this morning -Leukocytosis: 10.4 at 830 on 09/21/2023-->9.1 at 830 on 09/22/2023 -Migraine cocktail from the ED ordered to include diphenhydramine, prochlorperazine, and dexamethasone. Patient was able to rest after this was administered -Continue to hold Toradol and ibuprofen for hemorrhage prophylaxis -Vitals remained stable not suspicious for ongoing intra abdominal hemorrhage -Magnesium oxide 400 mg twice daily added for migraine control -Acetaminophen dosage decreased to 500 mg every 6 hours so that we did not hit or Tylenol max daily dose -Fioricet was ordered for migraine management -Incentive spirometer encouraged -Abdominal binding and ambulation encouraged -Continue Zosyn -Continue to monitor vitals and will repeat her CT scan in the morning and make a decision based on those results. Hospital day #3 -Hemoglobin stable. White count stable. -Pelvic fluid collection slightly smaller in size see above -At discharge we will send her home with metronidazole and Bactrim twice daily dosing for 14 days -Continue to encourage incentive spirometer at home -Patient will follow-up in the office on Sunday [facility] Home Medications and Allergies Home Medications Medication Instructions Recorded Confirmed Type paroxetine HCl 40 mg tablet 40 mg PO DAILY Mood 09/06/23 09/21/23 History trazodone 100 mg tablet 100 mg PO HS Sleep 09/06/23 09/21/23 History ferrous sulfate 325 mg (65 mg 325 mg PO DAILY #30 tabs 09/23/23 Rx iron) tablet,delayed release metronidazole 500 mg tablet 500 mg PO BID #28 tabs 09/23/23 Rx oxycodone-acetaminophen 5 mg-325 1 tab PO Q6HP PRN Moderate Pain 09/23/23 Rx mg tablet (Scale Score 5-6) #24 tabs sennosides 8.6 mg tablet (Senna 8.6 mg PO BIDP PRN Constipation 09/23/23 Rx Lax) #60 tabs simethicone 125 mg tablet 125 mg PO DAILY PRN abdominal 09/23/23 Rx distention #60 tabs sulfamethoxazole 800 1 tab PO BID 14 days #28 tabs 09/23/23 Rx mg-trimethoprim 160 mg tablet New Prescriptions to Start Prescriptions: oxycodone-acetaminophen Michelle Almonte ferrous sulfate Michelle Almonte metronidazole Michelle Almonte sennosides [Senna Lax] Michelle Almonte simethicone Gage,Michelle sulfamethoxazole-trimethoprim Michelle Almonte Allergies Allergy/AdvReac Type Severity Reaction Status Date / Time erythromycin base Allergy Unknown -- Verified 09/21/23 09:00 Discharge Plan Disposition Patient Disposition: Home, Self-Care Condition: Good Follow up Plan Follow up with: Michelle Almonte DO [Staff Physician] - 09/26/23 Prescriptions/Medication Reconciliation: New ferrous sulfate 325 mg (65 mg iron) tablet,delayed release (DR/EC) 325 mg PO DAILY Qty: 30 3RF sennosides [Senna Lax] 8.6 mg Tablet 8.6 mg PO BIDP PRN (Reason: Constipation) Qty: 60 2RF simethicone 125 mg tablet 125 mg PO DAILY PRN (Reason: abdominal distention) Qty: 60 2RF sulfamethoxazole-trimethoprim 800-160 mg tablet 1 tab PO BID 14 Days Qty: 28 0RF metronidazole 500 mg tablet 500 mg PO BID Qty: 28 0RF Continued paroxetine HCl 40 mg tablet 40 mg PO DAILY trazodone 100 mg tablet 100 mg PO HS Changed oxycodone-acetaminophen 5-325 mg tablet 1 tab PO Q6HP PRN (Reason: Moderate Pain (Scale Score 5-6)) Qty: 24 0RF Discontinued alprazolam [Xanax] 0.5 mg tablet 0.5 mg PO HSP PRN (Reason: sleep) Problem Reconciliation Problems Reviewed?: Yes Patient Discharge Instructions ACTIVITY: Limited activity and No heavy lifting DIET: continue same diet and regular diet Additional Instructions: Activity: - No lifting more than 10 lbs for 6 weeks. - No driving while you are taking narcotic pain medication. Wound care - You have stitches under your skin which will dissolve over the next 4-6 weeks as your body heals - Keep your wound clean and dry, ok to wash with soap and water but pat thoroughly dry Medications: -Metronidazole-this is an antibiotic that you will take twice daily for infection prophylaxis as the hematoma begins to reabsorb. Please do not drink any alcohol while taking this medicine -Bactrim-this is an antibiotic that you will take twice daily for infection prophylaxis. -Oxycodone (a narcotic pain medication) use the narcotic pain medication for breakthrough or severe pain. You will want to stop the narcotic pain medication first. Narcotic pain medication can be habit forming so please only use this medication if you need it. -Senna (a stool softener) use this medication for constipation as needed. Narcotics can increase your risk for constipation -Simethicone: a gas medication for bloating and gas pain you may experience in the next 1-2 weeks. Please call the office or return to the ER if you have any of the followin. bleeding more than 1 pad an hour for 2 hours 2. pain that does not respond to your narcotic pain medication 3. dizziness or lightheadedness such that you lose consciousness 4. abnormal discharge that looks like pus from your incisions Questions or concerns: It is my privilege to be your doctor. Please let me know if you have other questions or concerns. Michelle Almonte DO [facility] Specialist [place], [place] [address] Providers Primary Care Provider: Pravin Almonte Admit Provider: Michelle Almonte Attending Provider: Michelle Almonte
[2023-09-23] MEDS: SULFA/TRIMETHOPRIM 1 TABLET 1 EACH PO (16:05)
[2023-09-23] MEDS: metroNIDAZOLE 500 MG TABLET PO (16:05)
--- NOTE | 2023-09-23 16:13 | PC.NURSE ---
IV discontinued with catheter intact. Tolerated well. 2x2 gauze and coban applied to site.
--- NOTE | 2023-09-23 16:20 | PC.NURSE ---
Verbalized understanding of d/c instructions.
--- NOTE | 2023-09-28 10:01 | PC.NURSE ---
Urine culture received, resistant to Bactrim, pt was admitted to Dr. Almonte. I called OB to ensure urine cx report was viewed by Dr. Almonte. Elvia in OB office states Yes, I handed it to Dr. Almonte myself .
== END 2023-09-23 16:30 | disposition home or self-care (01) ==
LOC: ER 10:03 → OB 13:47
PROVIDERS: Admitting Provider Obstetrics & Gynecology; Emergency Provider Emergency Medicine; PCP Internal Medicine; Visit Provider Obstetrics & Gynecology
DX: R50.82 Postprocedural fever (principal); Z90.710 Acquired absence of both cervix and uterus; N94.6 Dysmenorrhea, unspecified; N99.820 Postprocedural hemorrhage of a genitourinary system organ or structure following a genitourinary system procedure; F32.A Depression, unspecified; F41.9 Anxiety disorder, unspecified; N80.9 Endometriosis, unspecified; G47.00 Insomnia, unspecified; Z87.442 Personal history of urinary calculi
CPT/HCPCS: 36415; 74177; 80053; 83605; 83735; 84100; 84703; 85025; 85610; 86850; 87040; 87086; 87430; 87632; 87635; G0378; J2405; J2543; Q9967

== ENCOUNTER 2023-09-26 12:07 | Outpatient (CLI) | payer BC, SELFPAY ==
[2023-09-26 12:36] LABS: Basophils # 0.1 K/mm3 (0-0.2); Basophils % 0.6 % (0.1-2.0); Eosinophils # 0.4 K/mm3 (0.0-0.4); Hematocrit 35.4 % (37.0-47.0); Hemoglobin 11.3 g/dL (12.2-16.2); Lymphocytes % 14.1 % (10-50); Mean Corpuscular HGB Conc 31.9 g/dL (31.8-35.4); Mean Corpuscular Hemoglobin 27.4 pg (27.0-31.2); Mean Corpuscular Volume 85.7 fl (81-99); Mean Platelet Volume 7.4 fl (7.4-10.4); Monocytes # 0.6 K/mm3 (0.1-1.0); Monocytes % 3.9 % (1.7-9.3); Neutrophils # 11.4 K/mm3 (1.8-7.8); Neutrophils % 78.3 % (37.0-80.0); Platelet Count 556 K/mm3 (142-424); Red Blood Count 4.13 M/mm3 (4.20-5.40); Red Cell Distribution Width 14.2 % (11.5-17.5); White Blood Count 14.5 K/mm3 (4.8-10.8)
[2023-09-26 13:17] LABS: Chloride 102 mmol/L (98-107); Potassium 4.6 mmoL/L (3.5-5.1); Sodium 135 mmol/L (136-145)
[2023-09-26 13:19] LABS: Alanine Aminotransferase 28 U/L (12-78); Aspartate Amino Transferase 25 U/L (14-36); Blood Urea Nitrogen 9 mg/dl (7-17); Estimated Glomerular Filt Rate 57 ml/min (>60); GFR (African American) 69 ML/MIN (>60)
[2023-09-26 13:20] LABS: Albumin Level 3.8 g/dl (3.5-5.0); Albumin/Globulin Ratio 1.4 (1.1-1.8); Alkaline Phosphatase 99 U/L (38-126); Anion Gap 12.6 mEq/L (5-15); Bilirubin,Total 0.3 mg/dl (0.2-1.3); Carbon Dioxide 25 mmol/L (22.0-30.0); Globulin 2.8 g/dL (1.3-3.2); Glucose 108 mg/dl (74-100); Magnesium 2.3 mg/dl (1.6-2.3); Total Protein,Serum 6.6 g/dl (6.3-8.2)
== END 2023-09-26 23:59 ==
PROVIDERS: PCP Internal Medicine Adolescent Medicine; Visit Provider Obstetrics & Gynecology
DX: R50.82 Postprocedural fever (principal); N99.820 Postprocedural hemorrhage of a genitourinary system organ or structure following a genitourinary system procedure
CPT/HCPCS: 36415; 80053; 83735; 85025

== ENCOUNTER 2023-09-26 13:25 | Emergency (ER) | payer BC, SELFPAY ==
[2023-09-26] VITALS (13 sets, daily range): BP systolic 114–135; BP diastolic 84–89; PULSE 86–116; RESP 14–18; TEMP 36.7–37.1; O2SAT 92–97; BMI 40.7
--- NOTE | 2023-09-26 13:31 | CT_ITS ---
FINAL REPORT TECHNIQUE: Postcontrast axial images through the abdomen and pelvis were performed. This study was performed with techniques to keep radiation doses as low as reasonably achievable, (ALARA). Individualized dose reduction techniques using automated exposure control or adjustment of mA and/or kV according to the patient's size were employed. CLINICAL HISTORY: rule out post op complication, hist on 09/12 COMPARISON: 09/23/2023 FINDINGS: Abdomen: There are small pleural effusions. There is a 9 mm low-attenuation focus in the lateral segment of the left hepatic lobe which is nonspecific, could represent a cyst or hemangioma. The spleen is unremarkable. The adrenals are normal. The pancreas is unremarkable. There are areas of bilateral renal scarring. The aorta is normal in caliber. No free fluid is identified. No findings for mechanical bowel obstruction are identified. Pelvis: The appendix is not identified. Again identified is air and fluid collection in the mid pelvis measuring 7.6 x 5.2 cm which is stable to slightly smaller. The patient is status post hysterectomy. Multiple borderline size retroperitoneal nodes are identified. The urinary bladder is unremarkable. IMPRESSION: Stable to slightly smaller air and fluid collection in the pelvis pelvis, may represent hematoma or abscess. Reviewed, Interpreted and Dictated by Clifford Pedraza III, MD Transcribed by Steffanie Sweeney Authenticated and [facility][1]
[2023-09-26] MEDS: SODIUM CHLORIDE 0.9% 10ML SYR (RAD ONLY) 10 ML IV (14:09)
[2023-09-26] MEDS: IOPAMIDOL-370 (76%);100ML BOTTLE 75 ML IV (14:10)
[2023-09-26] MEDS: ONDANSETRON 4MG/2ML VIAL 4 MG IV (14:17)
[2023-09-26 14:20] LABS: Microscopic, Urine URINE MICROSCOPIC (MICROSCOPIC)
--- NOTE | 2023-09-26 14:27 | HMH.EDGENADL ---
Discharge Plan Disposition Patient Disposition: Home, Self-Care Condition: Good Prescriptions Prescriptions: New ciprofloxacin HCl 500 mg tablet 500 mg PO BID Qty: 20 0RF metronidazole 500 mg tablet 500 mg PO Q8H 7 Days Qty: 21 0RF ondansetron 4 mg tablet,disintegrating 4 mg PO Q8H PRN (Reason: nausea and vomiting) 4 Days Qty: 12 0RF No Action paroxetine HCl 40 mg tablet 40 mg PO DAILY trazodone 100 mg tablet 100 mg PO HS ferrous sulfate 325 mg (65 mg iron) tablet,delayed release (DR/EC) 325 mg PO DAILY Qty: 30 3RF sennosides [Senna Lax] 8.6 mg Tablet 8.6 mg PO BIDP PRN (Reason: Constipation) Qty: 60 2RF simethicone 125 mg tablet 125 mg PO DAILY PRN (Reason: abdominal distention) Qty: 60 2RF sulfamethoxazole-trimethoprim 800-160 mg tablet 1 tab PO BID 14 Days Qty: 28 0RF oxycodone-acetaminophen 5-325 mg tablet 1 tab PO Q6HP PRN (Reason: Moderate Pain (Scale Score 5-6)) Qty: 24 0RF metronidazole 500 mg tablet 500 mg PO BID Qty: 28 0RF Referrals Follow up/Referrals: Win Vance MD [Primary Care Provider] - See instructions Activity Restrictions/Add. Instructions Additional Instructions/Restrictions: You were evaluated in the emergency department today. Please leaf size picker your prescription for antibiotics and take the full course as prescribed. Follow-up closely with [facility] over the next 3 days. Repeat imaging is recommended at the 5-day tyler if you are still having symptoms. Return to the emergency department for new or worsening symptoms. Clinical Impressions Clinical Impression: Lesion of liver, Abscess of pelvis, Abdominal pain, RUQ Discharge ED Provider: Sandy Barkley General Adult HPI <Angelito Owens MD - Last Filed: 09/26/23 15:07> General Chief complaint: Recheck/Abnormal Lab/Rx Stated complaint: lower abd pain sent from Dr. Shyanne Almonte Time Seen by Provider: 09/26/23 13:29 Mode of Arrival: Ambulatory Source of Information: Patient and Parent(s) Limitations: No Limitations Description of Symptoms (Recalled from ER Triage Doc. by RN): pt states she had a hysterectomy by Dr. Almonte on September 12. pt states she was readmitted for a blood clot approximately [id number] abover where her uterus should be. Pt was d/c on 09/22 and sent home with bactrim. pt followed up with her OB today for beige/pink vaginal discharge. Dr. Almonte then called the pt at home and informed her that her WBC was 14 and she should come to the ED. Pt states her OB wants her to have a CT to check for a fistula/ or enlargement of the blood clot. pt also c/o bilateral lower abd pain that is sharp in nature and an 8/10. History of Present Illness HPI narrative: 33-year-old female history of severe endometriosis status post debridement and laparoscopic hysterectomy on 09/12 presenting with abdominal pain. Patient has complicated postoperative course with large hematoma that intra-abdominal. Was admitted over the weekend for IV antibiotics and repeat imaging, hematoma decreased in size, patient was sent home on 09/22 with Bactrim. Patient presented to [facility] today, 09/25 for further evaluation in the setting of having abnormal vaginal discharge. Physician stated that patient will get blood work and if concern, would likely need repeat imaging. Patient got repeat hematologic workup, now has leukocytosis 14,000. Was recommended she come to the emergency department for further evaluation. Patient denies fevers or chills in the last couple of days, vomiting, bowel or urine changes, or any other concerns. Please note that above description of symptoms, in this electronic medical record under categorization of recalled from ER triage doctor by RN are reflective of an initial nursing assessment, however, is not reflective of my full history and physical exam that was personally taken and clarified. Consequentially, this preceding description of symptoms, which may include the patient's categorized chief complaint in the EMR, do not reflect my personal clinical impression, and the ultimate description of history of present illness and patient stated complaints should be deferred to this section of the note. Unless stated otherwise or congruent with this section of the note, additional signs, symptoms, or incongruence should be interpreted as inaccurate with my clinical impression. Related Data Home Medications Medication Instructions Recorded Confirmed paroxetine HCl 40 mg tablet 40 mg PO DAILY Mood 09/06/23 09/26/23 trazodone 100 mg tablet 100 mg PO HS Sleep 09/06/23 09/26/23 Previous Rx's Medication Instructions Recorded ferrous sulfate 325 mg (65 mg 325 mg PO DAILY #30 tabs 09/23/23 iron) tablet,delayed release metronidazole 500 mg tablet 500 mg PO BID #28 tabs 09/23/23 oxycodone-acetaminophen 5 mg-325 1 tab PO Q6HP PRN Moderate Pain 09/23/23 mg tablet (Scale Score 5-6) #24 tabs sennosides 8.6 mg tablet (Senna 8.6 mg PO BIDP PRN Constipation 09/23/23 Lax) #60 tabs simethicone 125 mg tablet 125 mg PO DAILY PRN abdominal 09/23/23 distention #60 tabs sulfamethoxazole 800 1 tab PO BID 14 days #28 tabs 09/23/23 mg-trimethoprim 160 mg tablet ciprofloxacin HCl 500 mg tablet 500 mg PO BID #20 tabs 09/26/23 metronidazole 500 mg tablet 500 mg PO Q8H 7 days #21 tabs 09/26/23 ondansetron 4 mg disintegrating 4 mg PO Q8H PRN nausea and 09/26/23 tablet vomiting 4 days #12 tabs Allergies Allergy/AdvReac Type Severity Reaction Status Date / Time erythromycin base Allergy Unknown -- Verified 09/26/23 13:51 PFS <Angelito Owens MD - Last Filed: 09/26/23 15:07> PFS Disclaimer: The information contained in this section may have been updated after the patient was seen, as this information can be updated by other users. Medical History History of nephrolithiasis #1wk post op LAVH -Oxycodone 5 mg p.o. every 4 hours as needed for severe pain -Morphine 1 mg every 2 hours as needed for severe breakthrough pain -Hold Toradol -CBC ordered for the a.m. to trend hemoglobin and white blood cell count -Zofran and Phenergan ordered as needed -Zosyn started for infection prophylaxis -Hemoglobin preoperatively: 13.5, immediately postoperatively: 11.2. Postop day #1: 10.2. 1 week postop: 8.6. -Slightly elevated CRP at 279 -Repeat CT scan ordered for Sunday morning -CT scan from the ED reviewed: There is a 9.0 x 6.3 cm fluid collection in the operative bed with foci of air within it. Differential diagnosis includes chronic hematoma or abscess -Of note on the CT scan there are small pleural effusions with mild bibasilar atelectasis. Incentive spirometer was ordered. We will hold IV fluids and encourage p.o. hydration -Potassium normal, calcium slightly low but still appropriate, magnesium appropriate -Patient has a history of nephrolithiasis and on CT scan a left renal stone less than 3 mm that was nonobstructing was noted. Will continue to follow #Anxiety -Ativan half a milligram p.o. as needed severe anxiety and insomnia -Home meds: Trazodone and paroxetine ordered Hosptial Day #2 -Hemoglobin remained stable: 8.6 at 830 yesterday morning and 8.6 on recheck at 830 this morning -Leukocytosis: 10.4 at 830 on 09/21/2023-->9.1 at 830 on 09/22/2023 -Migraine cocktail from the ED ordered to include diphenhydramine, prochlorperazine, and dexamethasone. Patient was able to rest after this was administered -Continue to hold Toradol and ibuprofen for hemorrhage prophylaxis -Vitals remained stable not suspicious for ongoing intra abdominal hemorrhage -Magnesium oxide 400 mg twice daily added for migraine control -Acetaminophen dosage decreased to 500 mg every 6 hours so that we did not hit or Tylenol max daily dose -Fioricet was ordered for migraine management -Incentive spirometer encouraged -Abdominal binding and ambulation encouraged -Continue Zosyn -Continue to monitor vitals and will repeat her CT scan in the morning and make a decision based on those results. Hospital day #3 -Hemoglobin stable. White count stable. -Pelvic fluid collection slightly smaller in size see above -At discharge we will send her home with metronidazole and Bactrim twice daily dosing for 14 days -Continue to encourage incentive spirometer at home -Patient will follow-up in the office on Sunday Chronic pelvic pain in female Endometriosis determined by laparoscopy Depression Anxiety Surgical History History of hernia repair History of oral surgery History of tonsillectomy History of surgery laparoscopy Family History Other No significant family history Social History (Reviewed 09/26/23 @ 11:34 by Elda Turcios Smoking Status: Never smoker alcohol intake: current substance use type: denies use current occupational status: employed and other Travel in the last 8 weeks: None household members: family housing: house <Angelito Owens MD - Last Filed: 09/26/23 15:07> ROS Obtained: Yes All systems reviewed & no additional complaints except as documented Physical Exam <Angelito Owens MD - Last Filed: 09/26/23 15:07> General General appearance: alert and in no apparent distress Head Head exam: atraumatic and normocephalic Eye Eye exam: Present normal appearance, PERRL and EOMI ENT ENT exam: Present mucous membranes moist Neck Neck exam: Present normal inspection, full ROM and trachea midline Respiratory Respiratory exam: Absent respiratory distress, wheezes, stridor, accessory muscle use or prolonged expiratory phase Cardiovascular Cardiovascular exam: Present normal rhythm Abdominal Exam Abdominal exam: Present soft and tenderness; Absent distention, guarding, rebound or rigidity Abdominal tenderness: Present diffuse and mild Extremities Exam Extremities exam: Absent edema Neurological Exam Neurological exam: Present alert, oriented X3, CN II-XII intact and normal gait; Absent motor sensory deficit Skin Skin exam: Present warm and dry; Absent diaphoresis or erythema Medical Decision Making <Angelito Owens MD - Last Filed: 09/26/23 15:07> Medical Records Medical records reviewed: Yes I reviewed the patient's medical records. Mykel Inquiry Pt receiving controlled substance: No Mykel was queried for this patient: No Vital Signs: 09/26/23 13:33 09/26/23 13:42 09/26/23 13:57 Temperature 98.7 F Temperature Source Oral Pulse Rate 116 H 94 H Pulse Rate [Left] 111 H Respiratory Rate 18 Blood Pressure 135/84 128/84 Blood Pressure [Right Arm] 135/84 Blood Pressure Mean [Right Arm] 101 Blood Pressure Source Blood Pressure Source [Right Arm] Automatic Cuff Blood Pressure Position Blood Pressure Position [Right Arm] Sitting 02 Sat by Pulse Oximetry 96 97 96 Oxygen Delivery Method Room Air 09/26/23 14:15 09/26/23 14:30 09/26/23 14:45 Temperature Temperature Source Pulse Rate 96 H 97 H 98 H Pulse Rate [Left] Respiratory Rate Blood Pressure Blood Pressure [Right Arm] Blood Pressure Mean [Right Arm] Blood Pressure Source Blood Pressure Source [Right Arm] Blood Pressure Position Blood Pressure Position [Right Arm] 02 Sat by Pulse Oximetry 96 92 L 95 Oxygen Delivery Method 09/26/23 15:00 09/26/23 15:15 09/26/23 15:30 Temperature Temperature Source Pulse Rate 99 H 86 86 Pulse Rate [Left] Respiratory Rate Blood Pressure Blood Pressure [Right Arm] Blood Pressure Mean [Right Arm] Blood Pressure Source Blood Pressure Source [Right Arm] Blood Pressure Position Blood Pressure Position [Right Arm] 02 Sat by Pulse Oximetry 95 92 L 96 Oxygen Delivery Method 09/26/23 15:45 09/26/23 16:00 09/26/23 16:15 Temperature Temperature Source Pulse Rate 88 86 87 Pulse Rate [Left] Respiratory Rate Blood Pressure Blood Pressure [Right Arm] Blood Pressure Mean [Right Arm] Blood Pressure Source Blood Pressure Source [Right Arm] Blood Pressure Position Blood Pressure Position [Right Arm] 02 Sat by Pulse Oximetry 94 L 95 92 L Oxygen Delivery Method 09/26/23 17:41 09/26/23 17:41 Temperature 98.0 F 98.0 F Temperature Source Oral Oral Pulse Rate 99 H Pulse Rate [Left] 99 H Respiratory Rate 14 14 Blood Pressure 114/89 Blood Pressure [Right Arm] 114/89 Blood Pressure Mean [Right Arm] 97 Blood Pressure Source Automatic Cuff Blood Pressure Source [Right Arm] Automatic Cuff Blood Pressure Position Sitting Blood Pressure Position [Right Arm] Sitting 02 Sat by Pulse Oximetry 96 Oxygen Delivery Method Room Air Room Air Lab Data Lab Results 09/26/23 14:13: Urine Color Yellow, Urine Appearance Clear, Urine pH 7.0, Ur Specific [place] 1.010, Urine Protein Negative, Urine Glucose (UA) Negative, Urine Ketones Negative, Urine Blood 2+, Urine Nitrate Negative, Urine Bilirubin Negative, Urine Urobilinogen 0.2, Ur Leukocyte Esterase 2+ A, Urine RBC 3-5, Urine WBC 5-10, Ur Squamous Epith Cells Occasional, Urine Bacteria Trace 09/26/23 15:25: Lactate 0.8 Orders (Tests/Meds): ED MEDICATIONS Discontinued Medications Generic Name Dose Route Start Last Admin Trade Name Freq PRN Reason Stop Dose Admin Acetaminophen 1,000 mg 09/26/23 15:05 09/26/23 15:14 Acetaminophen 1,000mg/100ml Vial IV 09/26/23 15:06 1,000 mg ONCE ONE Administration Lactated Ringer's 1,000 mls @ 999 mls/hr 09/26/23 15:05 09/26/23 15:14 Lactated Ringer's 1000 Ml Bag IV 09/26/23 16:05 999 mls/hr .Q1H1M ONE Administration Iopamidol 75 ml 09/26/23 14:09 09/26/23 14:10 Iopamidol-370 (76%);100ml Bottle IV 09/26/23 14:10 75 ml ONCE ONE Administration Ketorolac Tromethamine 15 mg 09/26/23 13:31 09/26/23 14:26 Ketorolac 30mg/Ml Vial IV 09/26/23 13:32 Not Given ONCE ONE Ondansetron HCl 4 mg 09/26/23 14:13 09/26/23 14:17 Ondansetron 4mg/2ml Vial IV 09/26/23 14:14 4 mg ONCE ONE Administration Sodium Chloride 10 ml 09/26/23 14:09 09/26/23 14:09 Sodium Chloride 0.9% 10ml Syr (Rad Only) IV 09/26/23 14:10 10 ml ONCE ONE Administration ORDERS Category Date Time Status CT abdomen pelvis w con Stat Cat Scan 09/26/23 13:31 Completed Lactic Acid Stat Lab 09/26/23 15:25 Completed UA [Urinalysis and Microscopic] Stat Lab 09/26/23 14:13 Completed Blood Culture Stat Micro 09/26/23 13:28 Received Urine Culture Stat Micro 09/26/23 14:13 Received Medical Decision Narrative: 33-year-old female history of severe endometriosis status post debridement and laparoscopic hysterectomy on 09/12 presenting with abdominal pain. Patient has complicated postoperative course with large hematoma that intra-abdominal. Was admitted over the weekend for IV antibiotics and repeat imaging, hematoma decreased in size, patient was sent home on 09/22 with Bactrim. Patient presented to [facility] today, 09/25 for further evaluation in the setting of having abnormal vaginal discharge. Physician stated that patient will get blood work and if concern, would likely need repeat imaging. Patient got repeat hematologic workup, now has leukocytosis 14,000. Was recommended she come to the emergency department for further evaluation. Patient denies fevers or chills in the last couple of days, vomiting, bowel or urine changes, or any other concerns. History was obtained via conversation with patient, OB in office. On arrival, patient hemodynamically stable, alert, oriented x4, appropriate, GCS 15, moving all extremities spontaneously, pupils equal and reactive to light. Full physical exam performed and significant for anxious female in no acute distress. Normotensive, nontachycardic, afebrile. Abdomen is soft, but tender diffusely, primarily in right side. No overlying skin changes. Differential includes intra-abdominal hematoma, intra-abdominal abscess, cuff dehiscence, anxiety, among others. Patient was given fluids and [place] of for symptomatic management and correction of underlying abnormalities. Workup independently interpreted and significant for leukocytosis 14,000, mild GAURANG with creatinine 1.1. CT abdomen pelvis without significant change in intra-abdominal hematoma, also without free fluid or free air. See radiology read for full review of final results. Prior to CT read and disposition, care ended up to oncoming physician. Patient likely to be switched from Bactrim to Flagyl, and pending CT read admitted versus transferred for further evaluation. <Sandy Barkley, DO - Last Filed: 09/26/23 20:10> Vital Signs: 09/26/23 13:33 09/26/23 13:42 09/26/23 13:57 Temperature 98.7 F Temperature Source Oral Pulse Rate 116 H 94 H Pulse Rate [Left] 111 H Respiratory Rate 18 Blood Pressure 135/84 128/84 Blood Pressure [Right Arm] 135/84 Blood Pressure Mean [Right Arm] 101 Blood Pressure Source Blood Pressure Source [Right Arm] Automatic Cuff Blood Pressure Position Blood Pressure Position [Right Arm] Sitting 02 Sat by Pulse Oximetry 96 97 96 Oxygen Delivery Method Room Air 09/26/23 14:15 09/26/23 14:30 09/26/23 14:45 Temperature Temperature Source Pulse Rate 96 H 97 H 98 H Pulse Rate [Left] Respiratory Rate Blood Pressure Blood Pressure [Right Arm] Blood Pressure Mean [Right Arm] Blood Pressure Source Blood Pressure Source [Right Arm] Blood Pressure Position Blood Pressure Position [Right Arm] 02 Sat by Pulse Oximetry 96 92 L 95 Oxygen Delivery Method 09/26/23 15:00 09/26/23 15:15 09/26/23 15:30 Temperature Temperature Source Pulse Rate 99 H 86 86 Pulse Rate [Left] Respiratory Rate Blood Pressure Blood Pressure [Right Arm] Blood Pressure Mean [Right Arm] Blood Pressure Source Blood Pressure Source [Right Arm] Blood Pressure Position Blood Pressure Position [Right Arm] 02 Sat by Pulse Oximetry 95 92 L 96 Oxygen Delivery Method 09/26/23 15:45 09/26/23 16:00 09/26/23 16:15 Temperature Temperature Source Pulse Rate 88 86 87 Pulse Rate [Left] Respiratory Rate Blood Pressure Blood Pressure [Right Arm] Blood Pressure Mean [Right Arm] Blood Pressure Source Blood Pressure Source [Right Arm] Blood Pressure Position Blood Pressure Position [Right Arm] 02 Sat by Pulse Oximetry 94 L 95 92 L Oxygen Delivery Method 09/26/23 17:41 09/26/23 17:41 Temperature 98.0 F 98.0 F Temperature Source Oral Oral Pulse Rate 99 H Pulse Rate [Left] 99 H Respiratory Rate 14 14 Blood Pressure 114/89 Blood Pressure [Right Arm] 114/89 Blood Pressure Mean [Right Arm] 97 Blood Pressure Source Automatic Cuff Blood Pressure Source [Right Arm] Automatic Cuff Blood Pressure Position Sitting Blood Pressure Position [Right Arm] Sitting 02 Sat by Pulse Oximetry 96 Oxygen Delivery Method Room Air Room Air Lab Data Lab Results 09/26/23 14:13: Urine Color Yellow, Urine Appearance Clear, Urine pH 7.0, Ur Specific [place] 1.010, Urine Protein Negative, Urine Glucose (UA) Negative, Urine Ketones Negative, Urine Blood 2+, Urine Nitrate Negative, Urine Bilirubin Negative, Urine Urobilinogen 0.2, Ur Leukocyte Esterase 2+ A, Urine RBC 3-5, Urine WBC 5-10, Ur Squamous Epith Cells Occasional, Urine Bacteria Trace 09/26/23 15:25: Lactate 0.8 Orders (Tests/Meds): ED MEDICATIONS Discontinued Medications Generic Name Dose Route Start Last Admin Trade Name Concha PRN Reason Stop Dose Admin Acetaminophen 1,000 mg 09/26/23 15:05 09/26/23 15:14 Acetaminophen 1,000mg/100ml Vial IV 09/26/23 15:06 1,000 mg ONCE ONE Administration Lactated Ringer's 1,000 mls @ 999 mls/hr 09/26/23 15:05 09/26/23 15:14 Lactated Ringer's 1000 Ml Bag IV 09/26/23 16:05 999 mls/hr .Q1H1M ONE Administration Iopamidol 75 ml 09/26/23 14:09 09/26/23 14:10 Iopamidol-370 (76%);100ml Bottle IV 09/26/23 14:10 75 ml ONCE ONE Administration Ketorolac Tromethamine 15 mg 09/26/23 13:31 09/26/23 14:26 Ketorolac 30mg/Ml Vial IV 09/26/23 13:32 Not Given ONCE ONE Ondansetron HCl 4 mg 09/26/23 14:13 09/26/23 14:17 Ondansetron 4mg/2ml Vial IV 09/26/23 14:14 4 mg ONCE ONE Administration Sodium Chloride 10 ml 09/26/23 14:09 09/26/23 14:09 Sodium Chloride 0.9% 10ml Syr (Rad Only) IV 09/26/23 14:10 10 ml ONCE ONE Administration ORDERS Category Date Time Status CT abdomen pelvis w con Stat Cat Scan 09/26/23 13:31 Completed Lactic Acid Stat Lab 09/26/23 15:25 Completed UA [Urinalysis and Microscopic] Stat Lab 09/26/23 14:13 Completed Blood Culture Stat Micro 09/26/23 13:28 Received Urine Culture Stat Micro 09/26/23 14:13 Received Medical Decision Narrative: 33-year-old female history of severe endometriosis status post debridement and laparoscopic hysterectomy on 09/12 presenting with abdominal pain. Patient has complicated postoperative course with large hematoma that intra-abdominal. Was admitted over the weekend for IV antibiotics and repeat imaging, hematoma decreased in size, patient was sent home on 09/22 with Bactrim. Patient presented to [facility] today, 09/25 for further evaluation in the setting of having abnormal vaginal discharge. Physician stated that patient will get blood work and if concern, would likely need repeat imaging. Patient got repeat hematologic workup, now has leukocytosis 14,000. Was recommended she come to the emergency department for further evaluation. Patient denies fevers or chills in the last couple of days, vomiting, bowel or urine changes, or any other concerns. History was obtained via conversation with patient, OB in office. On arrival, patient hemodynamically stable, alert, oriented x4, appropriate, GCS 15, moving all extremities spontaneously, pupils equal and reactive to light. Full physical exam performed and significant for anxious female in no acute distress. Normotensive, nontachycardic, afebrile. Abdomen is soft, but tender diffusely, primarily in right side. No overlying skin changes. Differential includes intra-abdominal hematoma, intra-abdominal abscess, cuff dehiscence, anxiety, among others. Patient was given fluids and [place] of for symptomatic management and correction of underlying abnormalities. Workup independently interpreted and significant for leukocytosis 14,000, mild GAURANG with creatinine 1.1. CT abdomen pelvis without significant change in intra-abdominal hematoma, also without free fluid or free air. See radiology read for full review of final results. Prior to CT read and disposition, care ended up to oncoming physician. Patient likely to be switched from Bactrim to Flagyl, and pending CT read admitted versus transferred for further evaluation. DO Filippo: I assumed care of the patient. Radiology noted that on CT scan she has a small liver lesion that is likely a cyst or hemangioma, though this is not made noted on prior imaging. I had an interactive discussion with the radiologist who advised that he does actually see it on prior imaging, however it was less prominent then. He advises this could indicate different phases and contrast timing, however it could also mean that it is developing process such as abscess. Patient does have right upper quadrant abdominal pain. He advised repeat imaging in approximately 5 days if she is having continued symptoms. I had an interactive discussion with her [facility] who advised that she could help follow her closely outpatient. We agreed that potentially change antibiotics may be beneficial, so I prescribed her ciprofloxacin and Flagyl Based on current recommendations. Patient is agreeable with this plan and she was given very strict return precautions that if her symptoms worsen or if she has persistent fevers, she should come back. She expressed understanding and agreement. Blood cultures are pending at this time and advised that we would notify her if they come back positive. Patient was given strict return precautions and was discharged in stable condition after all questions were answered. Critical Care <Angelito Owens MD - Last Filed: 09/26/23 15:07> Critical Care Time Critical Care Time: No
[2023-09-26 14:56] LABS: Appearance,Urine CLEAR (Clear); Bilirubin,Urine Negative (Negative); Blood, Urine 2+ (Negative); Color,Urine YELLOW (Yellow); Glucose,Urine (UA) Negative (Negative); Ketones,Urine Negative (Negative); Leukocyte Esterase,Urine 2+ (Negative); Nitrate,Urine Negative (Negative); Protein,Urine Negative (Negative); Urobilinogen,Urine 0.2 EU/dl (0.2)
[2023-09-26] MEDS: ACETAMINOPHEN 1,000MG/100ML VIAL 1000 MG IV (15:14)
[2023-09-26] MEDS: LACTATED RINGERS 1000ML 1,000 ML 999 ML IV (15:14)
[2023-09-26 15:38] LABS: Bacteria,Urine Trace /lpf; Squamous Epithelial Cell,Urine Occasional #/hpf (0-5)
--- NOTE | 2023-09-26 15:40 | PC.NURSE ---
pt is resting in bed laying on her side stated no complaints at this time,mom at bs and call light in reach
[2023-09-26 15:47] LABS: Lactic Acid 0.8 mmol/L (0.7-2.1)
--- NOTE | 2023-09-26 16:38 | PC.NURSE ---
Talking with [facility] about speaking with the radiologist concerning ct scan for
--- NOTE | 2023-09-26 16:43 | PC.NURSE ---
radiologist speaking with
--- NOTE | 2023-09-26 17:26 | PC.NURSE ---
Rounded on patient , no needs voiced at this time.
--- NOTE | 2023-09-26 17:26 | PC.NURSE ---
Rounded on patient , no needs voiced at this time.
--- NOTE | 2023-10-01 16:03 | PC.NURSE ---
blood culture results with , called pt who states that she is feeling the best today than she has in days. PT dc with cipro and flagyl. NTD at this time, aware.
== END 2023-09-26 17:45 | disposition home or self-care (01) ==
PROVIDERS: Emergency Medicine; Emergency Provider Emergency Medicine; PCP Internal Medicine Adolescent Medicine
DX: R10.11 Right upper quadrant pain (principal); K68.11 Postprocedural retroperitoneal abscess; K76.9 Liver disease, unspecified; N17.9 Acute kidney failure, unspecified
CPT/HCPCS: 74177; 81001; 83605; 87040; 87086; 96361; 96374; 96375; 99285; J0131; J2405; Q9967

== ENCOUNTER 2024-09-29 17:15 | Outpatient (CLI) | payer BC, SELFPAY | END 2024-09-29 23:59 | disposition home or self-care (01) | LOC: LAB 17:16 | PROVIDERS: PCP Nurse Practitioner Family; Visit Provider Nurse Practitioner Family | DX: R19.7 Diarrhea, unspecified (principal) ==

== ENCOUNTER 2024-10-04 12:05 | Outpatient (CLI) | payer BC, SELFPAY ==
[2024-10-04 12:19] LABS: Adenovirus F 40/41, stool Not Detected (NotDetected); Astrovirus Not Detected (NotDetected); Campylobacter Not Detected (NotDetected); Clostridium Difficile A/B, PCR Not Detected (NotDetected); Cryptosporidium Not Detected (NotDetected); Cyclospora Cayetanesis Not Detected (NotDetected); Entamoeba histolytica Not Detected (NotDetected); Enteroaggregative E coli Not Detected (NotDetected); Enteropathogenic E coli Not Detected (NotDetected); Enterotoxigenic E coli Not Detected (NotDetected); Giardia lamblia Not Detected (NotDetected); Plesimonas Shigalloides, PCR Not Detected (NotDetected); Rotavirus A Not Detected (NotDetected); Salmonella, PCR Not Detected (NotDetected); Sapovirus Not Detected (NotDetected); Shiga-like toxin E coli Not Detected (NotDetected); Shigella Enterovasive E coli Not Detected (NotDetected); Vibrio Cholerae Not Detected (NotDetected); Vibrio, PCR Not Detected (NotDetected); Yersinia Entercolitica, PCR Not Detected (NotDetected)
[2024-10-04 15:18] LABS: Norovirus Detected (NotDetected)
== END 2024-10-04 23:59 | disposition home or self-care (01) ==
LOC: LAB.DROPOF 12:06
PROVIDERS: PCP Nurse Practitioner Family; Visit Provider Nurse Practitioner Family
DX: R19.7 Diarrhea, unspecified (principal)
CPT/HCPCS: 87507

== ENCOUNTER 2024-10-25 18:32 | Emergency (ER) | payer SELFPAY ==
--- OUTSIDE RECORDS SUMMARY | 2024-10-25 18:39 | XMS_ITS | Data Portability ---
Author Organization [facility] Address [address] [place] [address] Assessment Encounter Date Assessment Date Assessment LastModified by Organization Details LastModified Time 06/08/2017 06/08/2017 SURGERY DATE: 06/08/2017 PREOPERATIVE DIAGNOSIS: Right distal ureteral stone (9 mm) with right hydronephrosis. POSTOPERATIVE DIAGNOSIS: Right distal ureteral stone (9 mm) with right hydronephrosis. PROCEDURES: Cystoscopy with right ureteroscopy, laser lithotripsy of a 9 mm distal ureteral stone, stone extraction, and stent placement. SURGEON: Asher Aguilar MD ANESTHESIA: General. COMPLICATIONS: None. CONDITION: Stable. INDICATIONS: This is a 26-year-old white female with right renal colic noted to have a 9 mm distal ureteral stone on recent CT scan. She delivered a baby about one month ago and has not had any fevers, nausea, vomiting, or chills but has had some right renal colic that is controlled with non-narcotics. She wishes to proceed with urologic stone management. OPERATIVE NOTE: The patient taken to the operating room after informed consent was obtained. Placed on the operating room table in the supine position. General anesthesia administered. Sequential compression devices placed and preoperative antibiotics administered. She was then placed in to the dorsal lithotomy position, prepped and draped in the standard surgical fashion. The 22-Kenyan cystoscope passed into the urethra and into the bladder. The bladder was within normal limits. The ureteral offices in their normal anatomic position. A guidewire passed into the right ureteral orifice and, under fluoroscopy, past by the ureteral stone without difficulty and into the renal pelvis. We removed the cystoscope and passed our semirigid ureteroscope up to the level of the stone. The stones was then fragmented into smaller pieces with the 200 nanometer laser fiber. The 2.4-Kenyan nitinol stone basket was used to remove all the stone fragments. The ureteroscope was then removed and the cystoscope was replaced and a 4.8 x 24-Kenyan stent was passed into the renal pelvis under fluoroscopic guidance. A good curl was noted proximally and distally after the wire was removed. The string was left on for later removal. The bladder drained. The scope removed. Uro-Jet placed into the urethra. The patient tolerated well and discharged to the recovery room in stable condition. [id number] Not available 06/12/2017 12:00:58 Plan of Treatment Reminders Order Date Submit Date Provider Last Modified By Organization Details Last Modified Time Details Appointments None record ed. Lab None record ed. Referral None record ed. Procedures None record ed. Surgeries None record ed. Imaging None record ed. Medication Orders None record ed. Patient TargetsNo targets recorded. Patient InstructionsNo instructions recorded. Reason for Referral None Reported. Results Created Date Observation Date Name Description Value Unit Range Abnormal Flag Note LastModifiedBy Organization Detail LastModifiedTime Result Notes None recorded. Medical Equipment None Reported. Allergies Allergen ID Allergen Name Allergen Category Reaction Reaction Severity Criticality Documentation Date Start Date Code Code System Note Provider Name and Address Organization Details Recorded Time 431861 amoxicill in trihydrat e medicatio n Not available Not available Not available 06/02/20162008 25106 8 RxNorm Comme nt: Creat ed By: [facility] maggi Ramirez atebradley Date: 2008 10:04 :44 AM; Not Available [facility] 04:05:43 Vitals None Recorded Social History None recorded. Functional Status None recorded. Mental Status None recorded. Family History Nothing Reported. Medical History No medical history recorded. Gynecological HistoryNo gynecological history recorded. Obstetrics History GPAL:G 0 P 0 0 0 0 Past Encounters Encounter ID Performer Location Encounter Start Date Encounter Closed Date Diagnosis/Indication Diagnosis SNOMED-CT Code Diagnosis ICD10 Code Diagnosis Note [id number] ASHER AGUILAR MD SURGERY SCHEDULE [facility] [place] [address] 06/08/2017 14:59:44 06/12/2017 10:31:53 Health Concerns Section Related Observation LastModified by Organization Detai ls LastModified Time None Recorded Concern Status LastModified by Organization Details LastModified Time None Recorded Advance Directives Directive None Recorded Payers Encounter Date Sequence Insurance Name Policy Number Policy Jauregui Covered Member ID Jauregui Member ID Guarantor Name 06/08/2017 1 [facility] [id number] Antonette Alonso [id number] Antonette Alonso OBGyn Episode No OBEpisode recorded.
[2024-10-25 18:47] LABS: Microscopic, Urine URINE MICROSCOPIC (MICROSCOPIC)
[2024-10-25 18:49] LABS: Appearance,Urine CLEAR (Clear); Bilirubin,Urine Negative (Negative); Blood, Urine Negative (Negative); Color,Urine YELLOW (Yellow); Glucose,Urine (UA) Negative (Negative); Ketones,Urine Negative (Negative); Leukocyte Esterase,Urine Negative (Negative); Nitrate,Urine Negative (Negative); Protein,Urine Negative (Negative); Specific Gravity, Urine 1.025 (1.005-1.030); Urobilinogen,Urine 0.2 EU/dl (0.2)
[2024-10-25 18:49] LABS: Adenovirus F 40/41, stool Not Detected (NotDetected); Astrovirus Not Detected (NotDetected); Campylobacter Not Detected (NotDetected); Clostridium Difficile A/B, PCR Not Detected (NotDetected); Cryptosporidium Not Detected (NotDetected); Cyclospora Cayetanesis Not Detected (NotDetected); Entamoeba histolytica Not Detected (NotDetected); Enteroaggregative E coli Not Detected (NotDetected); Enteropathogenic E coli Not Detected (NotDetected); Enterotoxigenic E coli Not Detected (NotDetected); Giardia lamblia Not Detected (NotDetected); Plesimonas Shigalloides, PCR Not Detected (NotDetected); Rotavirus A Not Detected (NotDetected); Salmonella, PCR Not Detected (NotDetected); Sapovirus Not Detected (NotDetected); Shiga-like toxin E coli Not Detected (NotDetected); Shigella Enterovasive E coli Not Detected (NotDetected); Vibrio Cholerae Not Detected (NotDetected); Vibrio, PCR Not Detected (NotDetected); Yersinia Entercolitica, PCR Not Detected (NotDetected)
--- NOTE | 2024-10-25 18:49 | CT_ITS ---
PROCEDURE INFORMATION: Exam: CT Abdomen And Pelvis With Contrast Exam date and time: 10/25/2024 7:48 PM Age: 34 years old Clinical indication: Abdominal pain; Generalized; Additional info: Abdominal pain diffuse/subacute diarrhea TECHNIQUE: Imaging protocol: Computed tomography of the abdomen and pelvis with contrast. Radiation optimization: All CT scans at this facility use at least one of these dose optimization techniques: automated exposure control; mA and/or kV adjustment per patient size (includes targeted exams where dose is matched to clinical indication); or iterative reconstruction. Contrast material: ISOVUE; Contrast volume: 75 ml; Contrast route: IV; COMPARISON: CT ABDOMEN PELVIS W CON 09/26/2023 2:05 PM FINDINGS: Liver: Normal. No mass. Gallbladder and biliary ducts: Normal. No calcified stones. No ductal dilation. Pancreas: Normal. No ductal dilation. Spleen: Normal. No splenomegaly. Adrenal glands: Normal. No mass. Kidneys and ureters: Stable cortical scarring or persistent lobation noted in both kidneys. No solid renal mass or hydronephrosis. 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 No bowel wall thickening or evidence of bowel obstruction. Appendix: No evidence of appendicitis. Intraperitoneal space: Unremarkable. No free air. No significant fluid collection. Vasculature: Unremarkable. No abdominal aortic aneurysm. Lymph nodes: Unremarkable. No enlarged lymph nodes. Urinary bladder: Unremarkable as visualized. Reproductive: 4.7 cm low-density mass in the pelvis with the appearance suggestive of complex or complicated cyst or fluid collection. No associated inflammatory change. This corresponds to the site of previously described likely abscess. Uterus appears to be surgically absent. Bones/joints: Unremarkable. No acute fracture. Soft tissues: Unremarkable. IMPRESSION: Findings suggesting residual 4.7 cm fluid collection in the pelvis at the site of previously described likely abscess. No significant associated inflammation evident along the current study, although residual abscess can not be excluded. Differential diagnosis would also include noninfected fluid collection or cystic ovarian lesion if the patient has not had prior oophorectomy
[2024-10-25 18:50] VITALS: BP 108/71; PULSE 81; RESP 18; TEMP 37.1; O2SAT 98; BMI 39.9
[2024-10-25 19:01] VITALS: BP 123/89
--- NOTE | 2024-10-25 19:07 | ED_ITS ---
Discharge Plan Disposition Patient Disposition: Home, Self-Care Condition: Good Prescriptions Prescriptions: New promethazine 25 mg tablet 25 mg PO TID PRN (Reason: sedation) Qty: 10 0RF No Action paroxetine HCl 40 mg tablet 40 mg PO DAILY trazodone 100 mg tablet 100 mg PO HS ferrous sulfate 325 mg (65 mg iron) tablet,delayed release (DR/EC) 325 mg PO DAILY Qty: 30 3RF sennosides [Senna Lax] 8.6 mg Tablet 8.6 mg PO BIDP PRN (Reason: Constipation) Qty: 60 2RF simethicone 125 mg tablet 125 mg PO DAILY PRN (Reason: abdominal distention) Qty: 60 2RF oxycodone-acetaminophen 5-325 mg tablet 1 tab PO Q6HP PRN (Reason: Moderate Pain (Scale Score 5-6)) Qty: 24 0RF ciprofloxacin HCl 500 mg tablet 500 mg PO BID Qty: 20 0RF ondansetron 4 mg tablet,disintegrating 4 mg PO Q8H PRN (Reason: nausea and vomiting) 4 Days Qty: 12 0RF Referrals Follow up/Referrals: Michelle Almonte DO [Staff Physician] - See instructions Dayron Mckinnon II, MD [Staff Physician] - See instructions Micheline Ghotra APRN [Primary Care Provider] - See instructions Activity Restrictions/Add. Instructions Additional Instructions/Restrictions: Increase fluids and rest. May take antidiarrheals [id number] as needed. Please call Dr. Mckinnon office for an appointment for the norovirus. Please take nausea meds as needed as well. Please follow-up with Dr. Almonte on Sunday as we discussed. Clinical Impressions Clinical Impression: Abdominal pain, Enteritis due to Norovirus Instructions Patient Instructions: Norovirus Infection, DI for Acute Abdominal Pain Print Language Print Language: Faroese Discharge ED Provider: Victor M Sharp General Adult HPI <Jodie Gray (ED), BARGAIN TABLE CLERK - Last Filed: 10/25/24 22:29> General Chief complaint: Abdominal Pain Stated complaint: abd pain Time Seen by Provider: 10/25/24 18:35 Mode of Arrival: Ambulatory Source of Information: Patient Description of Symptoms (Recalled from ER Triage Doc. by RN): abdominal pain, diarrhea, burning in her throat,sulfa burp History of Present Illness HPI narrative: This is a 34-year-old female who presents to the ED today for complaint of abdominal pain, bloating and diarrhea. She says she has diarrhea every day and then it is pure water. She says it feels like acid all the time and her throat and when she has diarrhea. She says she burps a lot and it smells like rotten eggs. She says everything feels so acidic. She has nausea and vomiting and this has been going on for quite some time. She started taking semaglutide from a coupon that she bought for $60. She has been taking this for 6 months. She has been doing microdoses and just now got up to 2.5 mg. She says she has had no weight loss. She feels like it is all bloating. She says she saw Yuli twice who is her primary primary care provider about this twice and she was told she had norovirus about a month ago. She says she continues to have the diarrhea. She has had no fevers or chills. Related Data Home Medications ?Medication ?Instructions ?Recorded ?Confirmed paroxetine HCl 40 mg tablet 40 mg PO DAILY Mood 09/06/23 10/03/23 trazodone 100 mg tablet 100 mg PO HS Sleep 09/06/23 10/03/23 Previous Rx's ?Medication ?Instructions ?Recorded ferrous sulfate 325 mg (65 mg 325 mg PO DAILY #30 tabs 09/23/23 iron) tablet,delayed release oxycodone-acetaminophen 5 mg-325 1 tab PO Q6HP PRN Moderate Pain 09/23/23 mg tablet (Scale Score 5-6) #24 tabs sennosides 8.6 mg tablet (Senna 8.6 mg PO BIDP PRN Constipation 09/23/23 Lax) #60 tabs simethicone 125 mg tablet 125 mg PO DAILY PRN abdominal 09/23/23 distention #60 tabs ciprofloxacin HCl 500 mg tablet 500 mg PO BID #20 tabs 09/26/23 ondansetron 4 mg disintegrating 4 mg PO Q8H PRN nausea and 09/26/23 tablet vomiting 4 days #12 tabs promethazine 25 mg tablet 25 mg PO TID PRN sedation #10 tabs 10/25/24 Allergies Allergy/AdvReac Type Severity Reaction Status Date / Time erythromycin base Allergy Unknown -- Verified 10/03/23 14:09 PFS <Jodie Gray (ED), BARGAIN TABLE CLERK - Last Filed: 10/25/24 22:29> PFS Disclaimer: The information contained in this section may have been updated after the patient was seen, as this information can be updated by other users. Medical History (Updated 10/25/24 @ 21:37 by Jodie Gray (ED), BARGAIN TABLE CLERK) History of nephrolithiasis Chronic pelvic pain in female Endometriosis determined by laparoscopy Depression Anxiety Surgical History (Updated 10/03/23 @ 14:12 by Fernanda Wilder CMA) H/O: hysterectomy History of hernia repair History of oral surgery History of tonsillectomy History of surgery Family History (Updated 10/03/23 @ 14:13 by Fernanda Wilder CMA) Other Alcoholism Cancer Heart attack Hyperlipidemia Hypertension Stroke Substance abuse Social History Smoking Status: Current every day smoker alcohol intake: current alcohol intake frequency: holidays/special occasions only substance use type: denies use current occupational status: employed and other Travel in the last 8 weeks: None household members: family housing: house Have you lived/traveled outside US in past 30 days?: No Contact w/someone who lives/traveled outside US past 30 days?: No Exposure to someone with infectious disease in past 14 days?: No Do you have a fever (greater than 100.4 F or 38 C)?: No Have you tested positive for COVID-19: No Exposed to someone with COVID-19 in past 14 days?: No Do you have a sore throat?: No Do you have a cough?: No Do you have any weakness?: No Do you have any diarrhea?: No Are you experiencing any unusual bleeding?: No Do you have any muscle aches/pain?: No Do you have any abdominal pain?: Yes Are you experiencing loss of taste or smell?: No Other Medical History Have you received the Flu Vaccine for this season: No Have you received the Pneumonia Vaccine: No <Jodie Gray (ED), BARGAIN TABLE CLERK - Last Filed: 10/25/24 22:29> ROS Obtained: Yes Systems reviewed as appropriate & no additional complaints except as documented Constitutional Constitutional: Reports as per HPI Physical Exam <Jodie Gray (ED), BARGAIN TABLE CLERK - Last Filed: 10/25/24 22:29> General General appearance: alert Head Head exam: atraumatic and normocephalic Eye Eye exam: Present PERRL and EOMI ENT ENT exam: Present normal oropharynx and mucous membranes moist Neck Neck exam: Present full ROM and trachea midline Respiratory Respiratory exam: Present normal lung sounds bilaterally Cardiovascular Cardiovascular exam: Present regular rate, normal rhythm, normal heart sounds, +S1 and +S2 Abdominal Exam Abdominal exam: Present soft and normal bowel sounds Abdominal tenderness: Present diffuse Extremities Exam Extremities exam: Present full ROM and normal capillary refill Neurological Exam Neurological exam: Present alert and oriented X3 Skin Skin exam: Present warm, dry and intact Medical Decision Making <Jodie Gray (ED), BARGAIN TABLE CLERK - Last Filed: 10/25/24 22:29> Medical Records Screening: Per USPSTF and CDC recommendations, given the prevalence of disease in our region, it is our hospital?s policy to screen for HIV and viral Hepatitis for all patients aged 18 and over and those with ongoing risk factors. Mykel Inquiry Pt receiving controlled substance: No Mykel was queried for this patient: No Vital Signs: 10/25/24 18:50 10/25/24 19:01 10/25/24 19:15 Temperature 98.7 F Temperature Source Oral Pulse Rate Pulse Rate [Right] 81 Respiratory Rate 18 Blood Pressure 123/89 139/85 Blood Pressure [Right Arm] 108/71 L Blood Pressure Mean 100 98 Blood Pressure Mean [Right Arm] 83 Blood Pressure Source Blood Pressure Position 02 Sat by Pulse Oximetry 98 Oxygen Delivery Method 10/25/24 19:31 10/25/24 20:00 10/25/24 21:51 Temperature 97.9 F Temperature Source Oral Pulse Rate 74 Pulse Rate [Right] Respiratory Rate 116 H Blood Pressure 130/90 124/86 132/84 Blood Pressure [Right Arm] Blood Pressure Mean 102 92 Blood Pressure Mean [Right Arm] Blood Pressure Source Automatic Cuff Blood Pressure Position Supine 02 Sat by Pulse Oximetry Oxygen Delivery Method Room Air Lab Data Lab Results 10/25/24 18:42: Urine Color Yellow, Urine Appearance Clear, Urine pH 6.0, Ur Specific Basco 1.025, Urine Protein Negative, Urine Glucose (UA) Negative, Urine Ketones Negative, Urine Blood Negative, Urine Nitrate Negative, Urine Bilirubin Negative, Urine Urobilinogen 0.2, Ur Leukocyte Esterase Negative, Urine RBC 3-5, Urine WBC 3-5, Ur Squamous Epith Cells 5-10, Urine Bacteria 3+, Urine Yeast 1+ 10/25/24 18:43: Stl Aeromonas (PCR) Not detected, Stl C. cayetanensis PCR Not detected, Stool Rotavirus (PCR) Not detected, Stl Adenov F 40/41 PCR Not detected, Stool Astrovirus (PCR) Not detected, Stool Campylobacter PCR Not detected, Stl C.difficile Tox PCR Not detected, Stool Cryptosporidium PCR Not detected, Stl E.coli Shiga Tox PCR Not detected, Stool E coli O157 PCR Not detected, Stl Enterotoxigenic E PCR Not detected, Stool EPEC (PCR) Not detected, Stool EAEC (PCR) Not detected, Stl E. histolytica PCR Not detected, Stool Giardia Lamblia PCR Not detected, Stool Salmonella PCR Not detected, Stool Sapovirus (PCR) Not detected, Stl P. shigelloides PCR Not detected, Stl Shigella/EIEC PCR Not detected, St Y.enterocolitica PCR Not detected, Stool Vibrio (PCR) Not detected, Stl Vibrio cholerae PCR Not detected, Stl Norovirus GI/GII PCR Detected A 10/25/24 18:55: Sodium 138, Potassium 4.3, Chloride 103, Carbon Dioxide 25, Anion Gap 14.3, BUN 9, Creatinine 0.90, Estimated Creat Clear 161, Estimated GFR 72, Est GFR ( Amer) 87, Glucose 89, Calcium 9.0, Magnesium 1.8, Total Bilirubin 0.4, AST 28, ALT 24, Alkaline Phosphatase 73, Troponin I < 0.01, Total Protein 7.6, Albumin 4.6, Globulin 3.0, Albumin/Globulin Ratio 1.5, Lipase 93 10/25/24 19:15: WBC 11.2 H, RBC 4.86, Hgb 13.1, Hct 40.0, MCV 82.3, MCH 27.0, MCHC 32.8, RDW 13.1, Plt Count 303, MPV 9.7, Neut % (Auto) 63.2, Lymph % (Auto) 26.5, Florence % (Auto) 6.4, Eos % (Auto) 2.7, Baso % (Auto) 0.8, Neut # (Auto) 7.1, Lymph # (Auto) 3.0, Florence # (Auto) 0.7, Eos # (Auto) 0.3, Baso # (Auto) 0.1, HCV Ab SAPPHIRE w/Rflx PCR Qn Negative, HIV Ag/Ab Combo Qual Negative 10/25/24 19:15 10/25/24 18:55 Orders (Tests/Meds): ED MEDICATIONS Discontinued Medications Generic Name Dose Route Start Last Admin Trade Name Freq PRN Reason Stop Dose Admin Sodium Chloride 1,000 mls @ 999 mls/hr 10/25/24 18:49 10/25/24 19:27 Sod Chlor 0.9% 1000ml Bag IV 10/25/24 19:49 999 mls/hr .Q1H1M ONE Administration Lactated Ringer's 1,000 mls @ 999 mls/hr 10/25/24 19:20 10/25/24 21:36 Lactated Ringer's 1000 Ml Bag IV 10/25/24 20:20 999 mls/hr .Q1H1M ONE Administration Iopamidol 75 ml 10/25/24 19:49 10/25/24 19:50 Iopamidol-370 (76%);100ml Bottle IV 10/25/24 19:50 75 ml ONCE ONE Administration Ketorolac Tromethamine 15 mg 10/25/24 18:52 10/25/24 19:26 Ketorolac 30mg/Ml Vial IV 10/25/24 18:53 15 mg ONCE ONE Administration Ondansetron HCl 4 mg 10/25/24 18:52 10/25/24 19:27 Ondansetron 4mg/2ml Vial IV 10/25/24 18:53 4 mg ONCE ONE Administration Pantoprazole Sodium 40 mg 10/25/24 18:49 10/25/24 19:26 Pantoprazole 40mg Vial IV 10/25/24 18:50 40 mg ONCE ONE Administration Promethazine HCl 25 mg 10/25/24 21:41 10/25/24 21:44 Promethazine Hcl 25mg/Ml 1ml Vial IV 10/25/24 21:42 25 mg ONCE ONE Administration Sodium Chloride 10 ml 10/25/24 18:49 Sodium Chloride 0.9% 10ml Vial IV 11/24/24 18:48 NEEDED PRN dilute protonix Sodium Chloride 10 ml 10/25/24 19:49 10/25/24 19:50 Sodium Chloride 0.9% 10ml Syr (Rad Only) IV 10/25/24 19:50 10 ml ONCE ONE Administration Sodium Chloride 25 ml 10/25/24 21:41 10/25/24 21:44 Sodium Chloride 0.9% 25ml Bag IV 10/25/24 21:42 25 ml ONCE ONE Administration ORDERS Category Date Time Status CT abdomen pelvis w con Stat Cat Scan 10/25/24 18:49 Completed CBC [Complete Blood Count Auto Diff] Stat Lab 10/25/24 19:15 Completed Comprehensive Metabolic Panel Stat Lab 10/25/24 18:55 Completed Diarrhea 23 Panel, PCR Stat Lab 10/25/24 18:43 Completed HIV Combo Stat Lab 10/25/24 19:15 Completed Hepatitis C Ab Qual. W/ RFX Stat Lab 10/25/24 19:15 Completed Lipase Stat Lab 10/25/24 18:55 Completed Magnesium Stat Lab 10/25/24 18:55 Completed Trop I [Troponin I] Stat Lab 10/25/24 18:55 Completed UA [Urinalysis and Microscopic] Stat Lab 10/25/24 18:42 Completed Urine Culture Stat Micro 10/25/24 18:42 Received Medical Decision Narrative: Insert review patient is a 34-year-old female presenting to the emergency department for evaluation of abdominal pain, bloating, diarrhea, nausea and vomiting over the past 2 to 4 weeks. She has been sick longer with the bloating and diarrhea for the past 6 months. She has been taking semaglutide from a group on deal that she bought off the computer. Patient is hemodynamically stable and nontoxic-appearing upon arrival, afebrile. Differential diagnosis includes norovirus, viral illness, cholecystitis, pancreatitis, among others. Workup will be conducted with hematologic labs, specific imaging. Initial inventions include crystalloid bolus, analgesics, antibiotics, etc. Initial workup reviewed by me norovirus. Please see radiology read for formal imaging that is remarkable for a 4.7 cm abscess in the pelvis. I discussed this with Dr. Sharp and then called Dr. Almonte who is on-call for PEDIATRIC LICENSED PRACTICAL NURSE. Dr. Almonte will be seeing patient in office on Sunday as a work in. They are going to discuss with her in a day with that abscess. Upon repeat evaluation patient is doing somewhat better but still having bloating and nausea. Discussed giving Phenergan IV before patient is discharged. Patient is going to follow-up with Dr. Mckinnon and Dr. Almonte this week. Patient safe for discharge home. Procedure: Procedure performed was ultrasound-guided IV. Procedure performed by Victor M Sharp. Using real-time ultrasound guidance an 18-gauge IV was placed in the left basilic vein. Vessel cannula is patent. Images were not saved to permanent archive. Patient tolerated the procedure well. There were no immediate complications. <Victor M Sharp MD - Last Filed: 10/25/24 23:21> Vital Signs: 10/25/24 18:50 10/25/24 19:01 10/25/24 19:15 Temperature 98.7 F Temperature Source Oral Pulse Rate Pulse Rate [Right] 81 Respiratory Rate 18 Blood Pressure 123/89 139/85 Blood Pressure [Right Arm] 108/71 L Blood Pressure Mean 100 98 Blood Pressure Mean [Right Arm] 83 Blood Pressure Source Blood Pressure Position 02 Sat by Pulse Oximetry 98 Oxygen Delivery Method 10/25/24 19:31 10/25/24 20:00 10/25/24 21:51 Temperature 97.9 F Temperature Source Oral Pulse Rate 74 Pulse Rate [Right] Respiratory Rate 116 H Blood Pressure 130/90 124/86 132/84 Blood Pressure [Right Arm] Blood Pressure Mean 102 92 Blood Pressure Mean [Right Arm] Blood Pressure Source Automatic Cuff Blood Pressure Position Supine 02 Sat by Pulse Oximetry Oxygen Delivery Method Room Air Lab Data Lab Results 10/25/24 18:42: Urine Color Yellow, Urine Appearance Clear, Urine pH 6.0, Ur Specific Basco 1.025, Urine Protein Negative, Urine Glucose (UA) Negative, Urine Ketones Negative, Urine Blood Negative, Urine Nitrate Negative, Urine Bilirubin Negative, Urine Urobilinogen 0.2, Ur Leukocyte Esterase Negative, Urine RBC 3-5, Urine WBC 3-5, Ur Squamous Epith Cells 5-10, Urine Bacteria 3+, Urine Yeast 1+ 10/25/24 18:43: Stl Aeromonas (PCR) Not detected, Stl C. cayetanensis PCR Not detected, Stool Rotavirus (PCR) Not detected, Stl Adenov F 40/41 PCR Not detected, Stool Astrovirus (PCR) Not detected, Stool Campylobacter PCR Not detected, Stl C.difficile Tox PCR Not detected, Stool Cryptosporidium PCR Not detected, Stl E.coli Shiga Tox PCR Not detected, Stool E coli O157 PCR Not detected, Stl Enterotoxigenic E PCR Not detected, Stool EPEC (PCR) Not detected, Stool EAEC (PCR) Not detected, Stl E. histolytica PCR Not detected, Stool Giardia Lamblia PCR Not detected, Stool Salmonella PCR Not detected, Stool Sapovirus (PCR) Not detected, Stl P. shigelloides PCR Not detected, Stl Shigella/EIEC PCR Not detected, St Y.enterocolitica PCR Not detected, Stool Vibrio (PCR) Not detected, Stl Vibrio cholerae PCR Not detected, Stl Norovirus GI/GII PCR Detected A 10/25/24 18:55: Sodium 138, Potassium 4.3, Chloride 103, Carbon Dioxide 25, Anion Gap 14.3, BUN 9, Creatinine 0.90, Estimated Creat Clear 161, Estimated GFR 72, Est GFR ( Amer) 87, Glucose 89, Calcium 9.0, Magnesium 1.8, Total Bilirubin 0.4, AST 28, ALT 24, Alkaline Phosphatase 73, Troponin I < 0.01, Total Protein 7.6, Albumin 4.6, Globulin 3.0, Albumin/Globulin Ratio 1.5, Lipase 93 10/25/24 19:15: WBC 11.2 H, RBC 4.86, Hgb 13.1, Hct 40.0, MCV 82.3, MCH 27.0, MCHC 32.8, RDW 13.1, Plt Count 303, MPV 9.7, Neut % (Auto) 63.2, Lymph % (Auto) 26.5, Florence % (Auto) 6.4, Eos % (Auto) 2.7, Baso % (Auto) 0.8, Neut # (Auto) 7.1, Lymph # (Auto) 3.0, Florence # (Auto) 0.7, Eos # (Auto) 0.3, Baso # (Auto) 0.1, HCV Ab SAPPHIRE w/Rflx PCR Qn Negative, HIV Ag/Ab Combo Qual Negative Orders (Tests/Meds): ED MEDICATIONS Discontinued Medications Generic Name Dose Route Start Last Admin Trade Name Freq PRN Reason Stop Dose Admin Sodium Chloride 1,000 mls @ 999 mls/hr 10/25/24 18:49 10/25/24 19:27 Sod Chlor 0.9% 1000ml Bag IV 10/25/24 19:49 999 mls/hr .Q1H1M ONE Administration Lactated Ringer's 1,000 mls @ 999 mls/hr 10/25/24 19:20 10/25/24 21:36 Lactated Ringer's 1000 Ml Bag IV 10/25/24 20:20 999 mls/hr .Q1H1M ONE Administration Iopamidol 75 ml 10/25/24 19:49 10/25/24 19:50 Iopamidol-370 (76%);100ml Bottle IV 10/25/24 19:50 75 ml ONCE ONE Administration Ketorolac Tromethamine 15 mg 10/25/24 18:52 10/25/24 19:26 Ketorolac 30mg/Ml Vial IV 10/25/24 18:53 15 mg ONCE ONE Administration Ondansetron HCl 4 mg 10/25/24 18:52 10/25/24 19:27 Ondansetron 4mg/2ml Vial IV 10/25/24 18:53 4 mg ONCE ONE Administration Pantoprazole Sodium 40 mg 10/25/24 18:49 10/25/24 19:26 Pantoprazole 40mg Vial IV 10/25/24 18:50 40 mg ONCE ONE Administration Promethazine HCl 25 mg 10/25/24 21:41 10/25/24 21:44 Promethazine Hcl 25mg/Ml 1ml Vial IV 10/25/24 21:42 25 mg ONCE ONE Administration Sodium Chloride 10 ml 10/25/24 18:49 Sodium Chloride 0.9% 10ml Vial IV 11/24/24 18:48 NEEDED PRN dilute protonix Sodium Chloride 10 ml 10/25/24 19:49 10/25/24 19:50 Sodium Chloride 0.9% 10ml Syr (Rad Only) IV 10/25/24 19:50 10 ml ONCE ONE Administration Sodium Chloride 25 ml 10/25/24 21:41 10/25/24 21:44 Sodium Chloride 0.9% 25ml Bag IV 10/25/24 21:42 25 ml ONCE ONE Administration ORDERS Category Date Time Status CT abdomen pelvis w con Stat Cat Scan 10/25/24 18:49 Completed CBC [Complete Blood Count Auto Diff] Stat Lab 10/25/24 19:15 Completed Comprehensive Metabolic Panel Stat Lab 10/25/24 18:55 Completed Diarrhea 23 Panel, PCR Stat Lab 10/25/24 18:43 Completed HIV Combo Stat Lab 10/25/24 19:15 Completed Hepatitis C Ab Qual. W/ RFX Stat Lab 10/25/24 19:15 Completed Lipase Stat Lab 10/25/24 18:55 Completed Magnesium Stat Lab 10/25/24 18:55 Completed Trop I [Troponin I] Stat Lab 10/25/24 18:55 Completed UA [Urinalysis and Microscopic] Stat Lab 10/25/24 18:42 Completed Urine Culture Stat Micro 10/25/24 18:42 Received Medical Decision Narrative: Insert review patient is a 34-year-old female presenting to the emergency department for evaluation of abdominal pain, bloating, diarrhea, nausea and vomiting over the past 2 to 4 weeks. She has been sick longer with the bloating and diarrhea for the past 6 months. She has been taking semaglutide from a group on deal that she bought off the computer. Patient is hemodynamically stable and nontoxic-appearing upon arrival, afebrile. Differential diagnosis includes norovirus, viral illness, cholecystitis, pancreatitis, among others. Workup will be conducted with hematologic labs, specific imaging. Initial inventions include crystalloid bolus, analgesics, antibiotics, etc. Initial workup reviewed by me norovirus. Please see radiology read for formal imaging that is remarkable for a 4.7 cm abscess in the pelvis. I discussed this with Dr. Sharp and then called Dr. Almonte who is on-call for PEDIATRIC LICENSED PRACTICAL NURSE. Dr. Almonte will be seeing patient in office on Sunday as a work in. They are going to discuss with her in a day with that abscess. Upon repeat evaluation patient is doing somewhat better but still having bloating and nausea. Discussed giving Phenergan IV before patient is discharged. Patient is going to follow-up with Dr. Mckinnon and Dr. Almonte this week. Patient safe for discharge home. Procedure: Procedure performed was ultrasound-guided IV. Procedure performed by Victor M Sharp. Using real-time ultrasound guidance an 18-gauge IV was placed in the left basilic vein. Vessel cannula is patent. Images were not saved to permanent archive. Patient tolerated the procedure well. There were no immediate complications. I was consulted by the TARAH, and we discussed the complexity of the problems being addressed. I approved the treatment and management plan for this patient's care in the emergency department, thus performing a substantive portion of the medical decision making. Patient has subacute norovirus for which she is symptomatic but her body is compensating she does not have any acute metabolic derangement that would require intervention and has been volume resuscitated in the emergency department. She has a fluid collection in her pelvis for which the differential is broad however it is improved and has been present for over a year and she will follow-up outpatient early this week with Dr. Almonte. Given that it has improved and I do not think it is the cause of patient's symptoms she does not appear septic antibiotics will be deferred given that it would likely make her diarrheal illness worse. Victor M Sharp MD Critical Care <Jodie Gray (ED), BARGAIN TABLE CLERK - Last Filed: 10/25/24 22:29> Critical Care Time Critical Care Time: No
[2024-10-25 19:15] VITALS: BP 139/85
[2024-10-25 19:24] LABS: Basophils # 0.1 K/mm3 (0-0.2); Basophils % 0.8 % (0.1-2.0); Eosinophils # 0.3 Kmm3 (0.0-0.4); Eosinophils % 2.7 % (0.1-12.0); Hemoglobin 13.1 g/dL (12.2-16.2); Lymphocytes % 26.5 % (10-50); Mean Corpuscular HGB Conc 32.8 g/dL (31.8-35.4); Mean Corpuscular Volume 82.3 fl (81-99); Mean Platelet Volume 9.7 fl (7.4-10.4); Monocytes # 0.7 K/mm3 (0.1-1.0); Monocytes % 6.4 % (1.7-9.3); Neutrophils # 7.1 K/mm3 (1.8-7.8); Neutrophils % 63.2 % (37.0-80.0); Nucleated Red Blood Cells # 0 10^3/uL; Nucleated Red Blood Cells % 0 %; Platelet Count 303 K/mm3 (142-424); Red Blood Count 4.86 M/mm3 (4.20-5.40); Red Cell Distribution Width 13.1 % (11.5-17.5); White Blood Count 11.2 K/mm3 (4.8-10.8)
[2024-10-25] MEDS: PANTOPRAZOLE 40MG VIAL 40 MG IV (19:26)
[2024-10-25] MEDS: KETOROLAC 30MG/ML VIAL 15 MG IV (19:26)
[2024-10-25] MEDS: 0.9 % SODIUM CHLORIDE 1000ML 1,000 ML 999 ML IV (19:27)
[2024-10-25] MEDS: ONDANSETRON 4MG/2ML VIAL 4 MG IV (19:27)
[2024-10-25 19:31] VITALS: BP 130/90
[2024-10-25 19:32] LABS: Bacteria,Urine 3+ /lpf; Yeast,Urine 1+ /lpf
[2024-10-25 19:34] LABS: Albumin Level 4.6 g/dl (3.5-5.0); Chloride 103 mmol/L (98-107); Potassium 4.3 mmoL/L (3.5-5.1); Sodium 138 mmol/L (136-145)
[2024-10-25 19:36] LABS: Alanine Aminotransferase 24 U/L (12-78); Blood Urea Nitrogen 9 mg/dl (7-17); Creatinine Clearance Estimated 161 mL/min (50-200); Estimated Glomerular Filt Rate 72 ml/min (>60); GFR (African American) 87 ML/MIN (>60)
[2024-10-25 19:37] LABS: Albumin/Globulin Ratio 1.5 (1.1-1.8); Alkaline Phosphatase 73 U/L (38-126); Anion Gap 14.3 mEq/L (5-15); Aspartate Amino Transferase 28 U/L (14-36); Bilirubin,Total 0.4 mg/dl (0.2-1.3); Carbon Dioxide 25 mmol/L (22.0-30.0); Glucose 89 mg/dl (74-100); Lipase 93 U/L (23-300); Magnesium 1.8 mg/dl (1.6-2.3); Total Protein,Serum 7.6 g/dl (6.3-8.2)
[2024-10-25 19:49] LABS: Troponin I < 0.01 ng/ml (0.00-0.034)
[2024-10-25] MEDS: IOPAMIDOL-370 (76%);100ML BOTTLE 75 ML IV (19:50)
[2024-10-25] MEDS: SODIUM CHLORIDE 0.9% 10ML SYR (RAD ONLY) 10 ML IV (19:50)
[2024-10-25 20:00] VITALS: BP 124/86
[2024-10-25 20:26] LABS: Hepatitis C Ab Qual. W/ RFX NEGATIVE (Negative)
[2024-10-25 20:38] LABS: HIV Combo NEGATIVE (Negative)
[2024-10-25 20:55] LABS: Norovirus Detected (NotDetected)
[2024-10-25] MEDS: LACTATED RINGERS 1000ML 1,000 ML 999 ML IV (21:36)
[2024-10-25] MEDS: SODIUM CHLORIDE 0.9% 25ML BAG 25 ML IV (21:44)
[2024-10-25] MEDS: PROMETHAZINE HCL 25MG/ML 1ML VIAL 25 MG IV (21:44)
[2024-10-25 21:51] VITALS: BP 132/84; PULSE 74; RESP 116; TEMP 36.6; O2SAT 98
== END 2024-10-25 21:52 | disposition home or self-care (01) ==
PROVIDERS: Nurse Practitioner; Emergency Provider Emergency Medicine; PCP Nurse Practitioner Family
DX: R10.84 Generalized abdominal pain (principal); A08.11 Acute gastroenteropathy due to Norwalk agent; R19.7 Diarrhea, unspecified
CPT/HCPCS: 74177; 76942; 80053; 81001; 83690; 83735; 84484; 85025; 86803; 87086; 87389; 87507; 96361; 96374; 96375; 99285; J1885; J2405; J2470; J2550; J7030; J7120; Q9967

== ENCOUNTER 2025-01-14 13:09 | Outpatient (CLI) | payer BC, SELFPAY ==
--- OUTSIDE RECORDS SUMMARY | 2024-10-11 17:30 | XMS_ITS ---
Author Organization [facility] Address [address] [place] [address] Care Team Providers Care Processing Operator Name Role Phone Win Vance Primary Care Provider Migration, Provider Unavailable Unavailable [facility] Conversion Encounter Medications Medication SIG (Take, Route, [...] PRN; Duration: 7 day(s) prn 02/19/2020 Active [facility] WOMEN'S THERAPEUTIC MULTIPLE VITAMINS WITH MINERALS 1 TAB(S) ORALLY ONCE A DAY; Duration: 30 DAY(S) *Please review for potential replacement for e-prescription and drug interaction check* Active Maxalt 10 MG 1 tab(s) orally once a day at onset of migraine; Duration: 30 days 06/18/2024 Active Probiotic 1 TAB PO QD *Please review a nd pick correct [facility]ulatio [facility]. If intended option is not shown, discontinue and re-order from Quick Search* Active Vitamin C 500 MG 1 tab(s) orally once a day; Duration: 30 day(s) Active Encounters Encounter Location Date Provider Diagnosis [facility] [address] [facility] [address] [place] [address] 10/11/2024 Provider Migration Plan Of Treatment No Information Progress Notes * Antonette KU CDOB: [birth year] (34 yo F)Acc No.[id number]:10/11/2024 Patient: Antonette DORSEY Provider: Demetris Mckeon :1990 A ge:34 Y S ex:Female Date:10/11/2024 Address:[address] [place], [id number] Pcp:Win Vance Subjective: * Chief Complaints: * 1 . Multum To Medispan Conversion Encounter. * Medical History: * Medications: T aking Vitamin C 500 MG Tablet 1 tab(s) orally once a day , Taking Probiotic 1 TAB PO QD , Notes to Pharmacist: *Please review and pick [facility]. If intended option is not shown, discontinue and re-order from Quick Search*, Taking [facility] WOMEN'S THERAPEUTIC MULTIPLE VITAMINS WITH MINERALS TABLET [...] Electronic signature of Prov ider Migration on 01/14/2025 at 01:15 PM EDT Sign off status: Pending * Provider: Demetris Mckeon Date: 10/11/2024 Generated for Cee ochoa/Sourav/Nkechi on: 01/14/2025 01:15 PM EDT
--- OUTSIDE RECORDS SUMMARY | 2025-01-14 13:15 | XMS_ITS | Data Portability ---
Author Organization [facility] Address [address] [place] [address] Assessment Encounter Date Assessment Date Assessment LastModified [...] draped in the standard surgical fashion. The 22-Swedish cystoscope passed into the urethra and into [...] with the 200 nanometer laser fiber. The 2.4-Swedish nitinol stone basket was used to remove all the stone fragments. The ureteroscope was then removed and the cystoscope was replaced and a 4.8 x 24-Swedish stent was passed into the renal pelvis [...] Name and Address Organization Details Recorded Time [id number] amoxicill in trihydrat e medicatio n Not available Not available Not available 06/02/20162008 [id number] RxNorm Comme nt: Creat ed By: [facility] maggi peraltaCre atebradley Date: 2008 10:04 :44 AM; Not Available [facility] 6 04:05:43 Vitals None Recorded Social History None recorded. Functional Status None recorded. Mental Status None recorded. Family History Nothing Reported. Medical History No medical history recorded. Gynecological HistoryNo gynecological history recorded. Obstetrics History GPAL:G 0 P 0 0 0 0 Past Encounters Encounter ID Performer Location Encounter Start Date Encounter Closed Date Diagnosis/Indication Diagnosis SNOMED-CT Code Diagnosis ICD10 Code Diagnosis Note [id number] ASHER AGUILAR MD SURGERY SCHEDULE [address] [place] [address] 06/08/2017 14:59:44 06/12/2017 10:31:53 Health Concerns Section Related Observation LastModified by Organization Detai ls LastModified Time None Recorded Concern Status LastModified by Organization Details LastModified Time None Recorded Advance Directives Directive None Recorded Payers Insurance Date Sequence Insurance Name Policy Number Policy Jauregui Covered Member ID Jauregui Member ID Guarantor Name 12/23/2017 PAYMENT PLAN Antonette Alonso 06/02/2020 1 [employer] [id number] Antonette Alonso [id number] Antonette Alonso OBGyn Episode No OBEpisode recorded.
--- OUTSIDE RECORDS SUMMARY | 2025-01-14 13:15 | XMS_ITS | Patient Health Record ---
Author Organization [facility] D IZABELA Address [address] [place] [address] Care Team Providers Care Potash Flaker Name Role Phone Win Vance Primary Care Provider Devin Ghotraah Unavailable [phone] Zunilda Beasley Unavailable [phone] Migration, Provider Unavailable Unavailable Allergies No Known Allergies Results Component Value Reference Range Notes M-Diarrhea Panel, PCR Reviewed date:10/07/2024 09:15:59 AM Interpretation: Performing Lab: Notes/Report: AEROMONAS Not Detected NotDetected CAMPYLOBACTER Not Detected NotDetected CLOSTR DIFFICIL Not Detected NotDetected PLESIOMONAS Not Detected NotDetected SALMONELLA, PCR Not Detected NotDetected YERSINIA Not Detected NotDetected VIBRIO, PCR Not Detected NotDetected VIBRIO CHOLERAE Not Detected NotDetected ECOLI (EAEC) Not Detected NotDetected ECOLI (EPEC) Not Detected NotDetected ECOLI (ETEC) Not Detected NotDetected SHIGATOXIN Not Detected NotDetected ECOLI O157 Not Detected NotDetected SHIG-INVAS ECOL Not Detected NotDetected CRYPTO Not Detected NotDetected CYCLOSPORA Not Detected NotDetected EHISTOLYTICA Not Detected NotDetected GIARDIA Not Detected NotDetected ADENO STOOL Not Detected NotDetected ASTROVIRUS Not Detected NotDetected NOROVIRUS Detected NotDetected NOTIFICATION RESULT Results called to: RUBI JEROME on 10/04/24 at 1518 By Gilma Moore MLT ROTOVIRUS A Not Detected NotDetected SAPOVIRUS Not Detected NotDetected Reason For Referral No Information Medications Medication SIG (Take, Route, Frequency, Duration) Notes Start Date End Date Status PARoxetine HCl 40 mg TAKE ONE TABLET BY MOUTH ONCE A DAY; Duration: 90 Active hydrOXYzine HCl 25 MG 1 tab(s) orally every 6 hours as needed 11/27/2019 Active Maxalt 10 MG 1 tab(s) orally once a day at onset of migraine; Duration: 30 days 06/18/2024 Active Probiotic 1 TAB PO QD *Please review a nd pick correct strength-formulatio n from WOWash options. If intended option is not shown, discontinue and re-order from Quick Search* Active Vitamin C 500 MG 1 tab(s) orally once a day; Duration: 30 day(s) Active Promethazine HCl 25 MG 1 tab(s) orally BID PRN; Duration: 7 day(s) prn 02/19/2020 Active traZODone HCl 150 mg TAKE ONE TABLET BY MOUTH AT BEDTIME FOR INSOMNIA; Duration: 30 Active CENTRUM SILVER WOMEN'S THERAPEUTIC MULTIPLE VITAMINS WITH MINERALS 1 TAB(S) ORALLY ONCE A DAY; Duration: 30 DAY(S) *Please review for potential replacement for e-prescription and drug interaction check* Active Problems Problem Type SNOMED Code ICD Code Onset Dates Problem Status W/U Status Risk Notes Problem Mixed anxiety and depressive disorder (235328367) Depression with anxiety (F41.8) Active confirmed Problem Intermenstrual bleeding - irregular (78018609) Menorrhagia with irregular cycle (N92.1) Active confirmed Problem Body mass index 40+ - morbidly obese (847187272) BMI 40.0-44.9, adult (Z68.41) Active confirmed Problem Adjustment disorder with mixed emotional features (40216393) Situational mixed anxiety and depressive disorder (F43.23) Active confirmed Problem Chronic insomnia (541545048) Chronic insomnia (F51.04) Active confirmed Problem Dysthymia (44331391) Dysthymia (F34.1) Active confirmed Problem History of nephrolithiasis (460691598) History of nephrolithiasis (Z87.442) Active confirmed Problem Refractory migraine without aura (541963331) Intractable migraine without aura and without status migrainosus (G43.019) Active confirmed Problem Generalized anxiety disorder (18784822) EMILIA (generalized anxiety disorder) (F41.1) Active confirmed Problem Kidney stone (49770380) Kidney stones (N20.0) Active confirmed Problem Obese class II (finding) (344526841878528) Class 2 obesity (E66.9) Active confirmed Problem History of hysterectomy (568058931) History of hysterectomy (Z90.710) Active confirmed Vital Signs Heart Rate 80 /min 09/29/2024 Temperature 97.7 degrees Fahrenheit 09/29/2024 Blood pressure diastolic 76 mm Hg 09/29/2024 Height 66.5 in 09/29/2024 Blood pressure systolic 114 mm Hg 09/29/2024 Weight 272.4 lbs 09/29/2024 BMI 43.3 kg/m2 09/29/2024 Encounters Encounter Location Date Provider Diagnosis [facility] I[place] [address] [facility] [address] [place] [address] 10/11/2024 Provider Migration [facility] I[place] [address] [facility] [address] [place] [address] 06/12/2024 Micheline Paradise Depression with anxiety F41.8 ; Intractable migraine without aura and without status migrainosus G43.019 and Chronic insomnia F51.04 [facility] I[place] [address] [facility] [address] [place] [address] 09/16/2024 Micheline Paradise Diarrhea of presumed infectious origin R19.7 [facility] I[place] [address] [facility] [address] [place], [place] [address] 09/29/2024 Micheline Paradise Diarrhea of presumed infectious origin R19.7 [facility] Z[place] [address] [place] [address] 06/18/2024 Micheline Paradise Intractable migraine without aura and without status migrainosus G43.019 Assessments Encounter Date Diagnosis (ICD Code) Assessment Notes Treatment Notes Treatment Clinical Notes Section Notes 06/12/2024 Depression with anxiety (ICD-10 - F41.8) Well controlled on current regimen. No changes made today. 06/12/2024 Intractable migraine without aura and without status migrainosus (ICD-10 - G43.019) Discussed hydration and need for regular, balanced meals, outdoor activities/exer cise and trigger (sunlight) etc - avoidance. Discussed using abortive meds rarely. Continue nurtec prn 06/18/2024 Intractable migraine without aura and without status migrainosus (ICD-10 - G43.019) 09/16/2024 Diarrhea of presumed infectious origin (ICD-10 - R19.7) Concern for bacterial infection, currently uninsured. recommend treat empirically, encouraged Pepto, Probiotic 09/29/2024 Diarrhea of presumed infectious origin (ICD-10 - R19.7) infectious? without insurance but agrees to PCR to help guide management. continue good fluid intake, bland diet 06/12/2024 Chronic insomnia (ICD-10 - F51.04) reasonable to increase trazodone as noted, caution to avoid morning sedation Plan Of Treatment Pending Test Test Name Order Date Urine Culture, Routine 06/04/2017 M-Complete Blood Count Auto Diff 021 M-Thyroid Stimulating Hormone 06/21/2021 M-Diarrhea Panel, PCR 06/21/2021 M-Vitamin B12 06/21/2021 M-Vitamin D 25 Hydroxy 06/21/2021 LIPID PANEL, STANDARD (7600) 02/01/2023 COMPREHENSIVE METABOLIC PANEL (06800) CBC (INCLUDES DIFF/PLT) (6399) HEMOGLOBIN A1c (496) 02/01/2023 ESTRADIOL (4021) 02/01/2023 FSH (470) 02/01/2023 LH (615) 02/01/2023 TSH (899) 02/01/2023 Medications Administered Medication Instructions Date of Administration Dosage Notes Bicillin CR (adult dose) 04/21/2014 1.2 Ceftriaxone 500 06/04/2017 500 mg Dexamethasone 4mg Injection 02/01/2023 4 mg Dexamethasone 4mg Injection 05/19/2023 4 mg Triamcinolone Acetonide 40mg Injection 01/23/2020 1 mL Triamcinolone Acetonide 40mg Injection 02/19/2020 1 mL Medical (General) History Medical History History ICD Code Kidney stones Migraines ANxiety Surgical History Surgery Date(Month/Year) Cystostomy/w lithotripsy and stent place 2012 Umbilical Hernia repair 2011 tonsillectomy 2008 gastroschesis 1991 lithotripsy 06/2017 Hysterectomy 09/2023 Hospitalization History Reason Date(Month/Year) Cystostomy w/lithotripsy and stent place ment 2012 Hysterectomy 09/2023 gastroschesis 1991 Umbilical hernia repair 2011
--- NOTE | 2025-01-14 13:30 | US_ITS ---
Ultrasound Sonograher: PROCEDURE: US TRANSVAGINAL CLINICAL INDICATION: RLQP/Pelvic pain COMPARISON: CT CT ABDOMEN PELVIS W CON from 10/25/2024 FINDINGS: Transvaginal sonographic images of the pelvis were obtained. UTERUS: The uterus is surgically absent. The vaginal vault is intact. LEFT OVARY: Surgically absent RIGHT OVARY: 4.6 cmx 5.0 cmx5.2 cm There appears to be a hemorrhagic cyst within the right ovary measuring 3.1 cm x 2.7 cm. It has the typical lacy appearance. Surrounding the right ovary there is a significant amount of fluid. It is not clear whether this fluid is actually part of the ovary and is a simple cyst or it is free fluid within the pelvis. The area surrounding the ovary including the cystic area measures 10.1 cm x 6 cm x 5.9 cm. Doppler flow to the right ovary is seen. There is no fluid in the cul-de-sac. IMPRESSION: 1. The uterus is surgically absent. The vaginal vault is intact. 2. The right ovary is seen and contains an area that appears to be hemorrhagic. This hemorrhagic area measures 3.1 cm in size. Additionally there is fluid around the ovary and it is not clear whether this fluid is part of a simple cyst or free fluid around the ovary. There is good flow to the ovary. 3. The left ovary is surgically absent. 4. There does not appear to be any fluid in the cul-de-sac 5. I discussed case with Dr. Almonte. Dictated by: Vance Turpin MD 01/14/2025 16:28 Vance Turpin MD in [place] 01/14/2025 16:28
== END 2025-01-14 23:59 | disposition home or self-care (01) ==
LOC: RAD 13:10
PROVIDERS: PCP Internal Medicine Adolescent Medicine; Visit Provider Obstetrics & Gynecology
DX: N83.8 Other noninflammatory disorders of ovary, fallopian tube and broad ligament (principal); Z90.710 Acquired absence of both cervix and uterus; Z90.721 Acquired absence of ovaries, unilateral
CPT/HCPCS: 76830

== ENCOUNTER 2025-01-17 13:14 | Outpatient (CLI) | payer BC, SELFPAY ==
--- OUTSIDE RECORDS SUMMARY | 2024-10-11 17:30 | XMS_ITS ---
Author Organization [facility] Address [address] [place] [address] Care Team Providers Care Software Testing Specialist Name Role Phone Win Vance Primary Care Provider Migration, Provider Unavailable Unavailable [facility] Conversion Encounter Medications Medication SIG (Take, Route, Frequency, Duration) Notes Start Date End Date Status hydrOXYzine HCl 25 MG 1 tab(s) orally every 6 hours as needed 11/27/2019 Active traZODone HCl 150 MG 150 mg orally every night for insomnia; Duration: 30 days 06/12/2024 Active PARoxetine HCl 40 MG 1 tab(s) orally once a day Active Promethazine HCl 25 MG 1 tab(s) orally BID PRN; Duration: 7 day(s) prn 02/19/2020 Active [facility] WOMEN'S THERAPEUTIC MULTIPLE VITAMINS WITH MINERALS 1 TAB(S) ORALLY ONCE A DAY; Duration: 30 DAY(S) *Please review for potential replacement for e-prescription and drug interaction check* Active Maxalt 10 MG 1 tab(s) orally once a day at onset of migraine; Duration: 30 days 06/18/2024 Active Probiotic 1 TAB PO QD *Please review a nd pick correct [facility]ulatio [facility] If intended option is not shown, discontinue and re-order from Quick Search* Active Vitamin C 500 MG 1 tab(s) orally once a day; Duration: 30 day(s) Active Encounters Encounter Location Date Provider Diagnosis [facility] [address] [facility] [address] [place] [address] 10/11/2024 Provider Migration Plan Of Treatment No Information Progress Notes * Antonette KU CDOB: [birth year] (34 yo F)Acc No.[id number]:10/11/2024 Patient: Antonette DORSEY Provider: Demetris Mckeon :1990 A ge:34 Y S ex:Female Date:10/11/2024 Address:[address] [place], [id number] Pcp:Win Vance Subjective: * Chief Complaints: * 1 . [facility] To [facility] Conversion Encounter. * Medical History: * Medications: T aking Vitamin C 500 MG Tablet 1 tab(s) orally once a day , Taking Probiotic 1 TAB PO QD , Notes to Pharmacist: *Please review and pick [facility]. If intended option is not shown, discontinue and re-order from Quick Search*, Taking [facility] WOMEN'S THERAPEUTIC MULTIPLE VITAMINS WITH MINERALS TABLET 1 TAB(S) ORALLY ONCE A DAY , Notes to Pharmacist: *Please review for potential replacement for e-prescription and drug interaction check*, Taking Promethazine HCl 25 MG Tablet 1 tab(s) orally BID PRN , Notes to Pharmacist: prn, Taking traZODone HCl 150 MG Tablet 150 mg orally every night for insomnia , Taking hydrOXYzine HCl 25 MG Tablet 1 tab(s) orally every 6 hours as needed , Taking PARoxetine HCl 40 MG Tablet 1 tab(s) orally once a day , Taking Maxalt 10 MG Tablet 1 tab(s) orally once a day at onset of migraine Objective: * Vitals: Assessment: Plan: * Treatment: * * Electronic signature of Prov ider Migration on 01/17/2025 at 01:17 PM EDT Sign off status: Pending * Provider: Demetris Mckeon Date: 10/11/2024 Generated for Cee ochoa/Sourav/Nkechi on: 01/17/2025 01:17 PM EDT
--- OUTSIDE RECORDS SUMMARY | 2025-01-17 13:17 | XMS_ITS | Patient Health Record ---
Author Organization [facility] D IZABELA Address [address] [place] [address] Care Team Providers Care Cnc Wood Lathe Operator Name Role Phone Win Vance Primary Care Provider Devin Ghotraah Unavailable [phone] Zunilda Beasley Unavailable [phone] Migration, Provider Unavailable Unavailable Allergies No Known [...] a nd pick correct strength-formulatio n from xTV options. If intended option is not shown, [...] Notes Problem Mixed anxiety and depressive disorder (232110735) Depression with anxiety (F41.8) Active confirmed Problem Intermenstrual bleeding - irregular (83539822) Menorrhagia with irregular cycle (N92.1) Active confirmed Problem Body mass index 40+ - morbidly obese (040682959) BMI 40.0-44.9, adult (Z68.41) Active confirmed Problem Adjustment disorder with mixed emotional features (03038548) Situational mixed anxiety and depressive disorder (F43.23) Active confirmed Problem Chronic insomnia (226515114) Chronic insomnia (F51.04) Active confirmed Problem Dysthymia (71426355) Dysthymia (F34.1) Active confirmed Problem History of nephrolithiasis (366881060) History of nephrolithiasis (Z87.442) Active confirmed Problem Refractory migraine without aura (920097270) Intractable migraine without aura and without status migrainosus (G43.019) Active confirmed Problem Generalized anxiety disorder (67471488) EMILIA (generalized anxiety disorder) (F41.1) Active confirmed Problem Kidney stone (49420109) Kidney stones (N20.0) Active confirmed Problem Obese class II (finding) (914352159125400) Class 2 obesity (E66.9) Active confirmed Problem History of hysterectomy (696916598) History of hysterectomy (Z90.710) Active confirmed Vital Signs Heart Rate 80 /min 09/29/2024 Temperature 97.7 degrees Fahrenheit 09/29/2024 Blood pressure diastolic 76 mm Hg 09/29/2024 Height 66.5 in 09/29/2024 Blood pressure systolic 114 mm Hg 09/29/2024 Weight 272.4 lbs 09/29/2024 BMI 43.3 kg/m2 09/29/2024 Encounters Encounter Location Date Provider Diagnosis [facility] I[place] [address] [facility] [address] [place] [address] 10/11/2024 Provider Migration [facility] I[place] [address] [facility] [address] [place] [address] 06/12/2024 Michelinejose JamisonParadise Depression with anxiety F41.8 ; Intractable migraine without aura and without status migrainosus G43.019 and Chronic insomnia F51.04 [facility] I[place] [address] [place] [address] 09/16/2024 Micheline Paradise Diarrhea of presumed infectious origin R19.7 [facility] I[place] [address] [facility] [address] [place], [place] [address] 09/29/2024 Micheline Paradise Diarrhea of presumed infectious origin R19.7 [facility] [place] [address] [place] [address] 06/18/2024 Micheline Paradise Intractable migraine without aura and without status migrainosus G43.019 Assessments Encounter Date Diagnosis (ICD Code) Assessment Notes Treatment Notes Treatment Clinical Notes Section Notes 06/18/2024 Intractable migraine without aura and without status migrainosus (ICD-10 - G43.019) 09/16/2024 Diarrhea of presumed infectious origin (ICD-10 - R19.7) Concern for bacterial infection, currently uninsured. recommend treat empirically, encouraged Pepto, Probiotic 09/29/2024 Diarrhea of presumed infectious origin (ICD-10 - R19.7) infectious? without insurance but agrees to PCR to help guide management. continue good fluid intake, bland diet 06/12/2024 Intractable migraine without aura and without status migrainosus (ICD-10 - G43.019) Discussed hydration and need for regular, balanced meals, outdoor activities/exer cise and trigger (sunlight) etc - avoidance. Discussed using abortive meds rarely. Continue nurtec prn 06/12/2024 Depression with anxiety (ICD-10 - F41.8) Well controlled on current regimen. No changes made today. 06/12/2024 Chronic insomnia (ICD-10 - F51.04) reasonable to increase trazodone as noted, caution to avoid morning sedation Plan Of Treatment Pending Test Test Name Order Date Urine Culture, Routine 06/04/2017 M-Complete Blood Count Auto Diff 021 M-Thyroid Stimulating Hormone 06/21/2021 M-Diarrhea Panel, PCR 06/21/2021 M-Vitamin B12 06/21/2021 M-Vitamin D 25 Hydroxy 06/21/2021 LIPID PANEL, STANDARD (7600) 02/01/2023 COMPREHENSIVE METABOLIC PANEL (04492) CBC (INCLUDES DIFF/PLT) (6399) HEMOGLOBIN A1c (496) [...] Surgery Date(Month/Year) Cystostomy/w lithotripsy and stent place ment 2013 Umbilical Hernia repair 2011 tonsillectomy 2008 gastroschesis 1991 lithotripsy 06/2017 Hysterectomy 09/2023 Hospitalization History Reason Date(Month/Year) Cystostomy w/lithotripsy and stent place ment 2012 Hysterectomy 09/2023 gastroschesis 1991 Umbilical hernia repair 2011
--- OUTSIDE RECORDS SUMMARY | 2025-01-17 13:17 | XMS_ITS | Data Portability ---
Author Organization [place]ONO K[facility]AN [facility] Address [address] [facility] [address] [place] [address] Assessment Encounter Date Assessment Date Assessment LastModified [...] draped in the standard surgical fashion. The 22-Surinamese cystoscope passed into the urethra and into [...] with the 200 nanometer laser fiber. The 2.4-Surinamese nitinol stone basket was used to remove all the stone fragments. The ureteroscope was then removed and the cystoscope was replaced and a 4.8 x 24-Surinamese stent was passed into the renal pelvis [...] Name and Address Organization Details Recorded Time [id number] amoxicill in trihydrat e medicatio n Not available Not available Not available 06/02/20162008 91279 8 RxNorm Comme nt: Creat ed By: [facility] maggi peraltaCre atebradley Date: 2008 10:04 :44 AM; Not Available [facility] 04:05:43 Vitals None Recorded Social History None recorded. Functional Status None recorded. Mental Status None recorded. Family History Nothing Reported. Medical History No medical history recorded. Gynecological HistoryNo gynecological history recorded. Obstetrics History GPAL:G 0 P 0 0 0 0 Past Encounters Encounter ID Performer Location Encounter Start Date Encounter Closed Date Diagnosis/Indication Diagnosis SNOMED-CT Code Diagnosis ICD10 Code Diagnosis Note [id number] ASHER AGUILAR MD SURGERY SCHEDULE [address] [place] [address] 06/08/2017 14:59:44 06/12/2017 10:31:53 Health Concerns Section Related Observation LastModified by Organization Detai ls LastModified Time None Recorded Concern Status LastModified by Organization Details LastModified Time None Recorded Advance Directives Directive None Recorded Payers Insurance Date Sequence Insurance Name Policy Number Policy Jauregui Covered Member ID Ajuregui Member ID Guarantor Name 12/23/2017 PAYMENT PLAN Antonette Alonso 06/02/2020 1 [facility] [employer] [id number] Antonette Alonso [id number] Antonette Alonso OBGyn Episode No OBEpisode recorded.
[2025-01-17 13:43] LABS: Hematocrit 38.1 % (37.0-47.0); Hemoglobin 12.7 g/dL (12.2-16.2); Immature Granulocytes % 0.2 %; Mean Corpuscular HGB Conc 33.3 g/dL (31.8-35.4); Mean Corpuscular Hemoglobin 27.3 pg (27.0-31.2); Mean Corpuscular Volume 81.9 fl (81-99); Nucleated Red Blood Cells % 0 %; Platelet Count 257 K/mm3 (142-424); Red Blood Count 4.65 M/mm3 (4.20-5.40); Red Cell Distribution Width-SD 38.9 fL; White Blood Count 8.5 K/mm3 (4.8-10.8)
[2025-01-17 14:00] LABS: Albumin Level 4.1 g/dl (3.5-5.0); Chloride 103 mmol/L (98-107); Potassium 4.5 mmoL/L (3.5-5.1); Sodium 138 mmol/L (136-145)
[2025-01-17 14:03] LABS: Alanine Aminotransferase 19 U/L (12-78); Albumin/Globulin Ratio 1.5 (1.1-1.8); Alkaline Phosphatase 79 U/L (38-126); Anion Gap 14.5 mEq/L (5-15); Aspartate Amino Transferase 19 U/L (14-36); Bilirubin,Total 0.3 mg/dl (0.2-1.3); Blood Urea Nitrogen 11 mg/dl (7-17); Calcium 8.6 mg/dl (8.4-10.2); Carbon Dioxide 25 mmol/L (22.0-30.0); Creatinine,Serum 0.90 mg/dl (0.52-1.04); Estimated Glomerular Filt Rate 72 ml/min (>60); GFR (African American) 87 ML/MIN (>60); Globulin 2.8 g/dL (1.3-3.2); Glucose 100 mg/dl (74-100); Total Protein,Serum 6.9 g/dl (6.3-8.2)
== END 2025-01-17 23:59 | disposition home or self-care (01) ==
LOC: LAB 13:16
PROVIDERS: PCP Internal Medicine Adolescent Medicine; Visit Provider Obstetrics & Gynecology
DX: N83.201 Unspecified ovarian cyst, right side (principal); N83.209 Unspecified ovarian cyst, unspecified side
CPT/HCPCS: 36415; 80053; 84702; 85025; 86304; 86305

== ENCOUNTER 2025-01-22 10:39 | Inpatient (IN) | payer BC, SELFPAY ==
[2025-01-22] VITALS (25 sets, daily range): BP systolic 89–138; BP diastolic 48–92; PULSE 63–111; RESP 14–20; TEMP 35.7–38; O2SAT 90–97; BMI 42.3
[2025-01-22] MEDS: LACTATED RINGERS 1000ML 1,000 ML 25 ML IV (06:48)
--- NOTE | 2025-01-22 07:05 | EXP.ANES.CKL ---
[facility] Disclaimer: The information contained in this section may have been updated after the patient was seen, as this information can be updated by other users. Medical History History of nephrolithiasis Chronic pelvic pain in female Endometriosis determined by laparoscopy Depression Anxiety Surgical History H/O: hysterectomy History of hernia repair History of oral surgery History of tonsillectomy History of surgery Family History Other Alcoholism Cancer Heart attack Hyperlipidemia Hypertension Stroke Substance abuse Social History Smoking Status: Current every day smoker alcohol intake: current alcohol intake frequency: holidays/special occasions only substance use type: denies use current occupational status: employed and other Travel in the last 8 weeks?: None household members: family housing: house Have you lived/traveled outside [place] in past 30 days?: No Contact w/someone who lives/traveled outside US past 30 days?: No Exposure to someone with infectious disease in past 14 days?: No Do you have a fever (greater than 100.4 F or 38 C)?: No Have you tested positive for COVID-19?: No Exposed to someone with COVID-19 in past 14 days?: No Do you have a sore throat?: No Do you have a cough?: No Do you have any weakness?: No Do you have any diarrhea?: No Are you experiencing any unusual bleeding?: No Do you have any muscle aches/pain?: No Do you have any abdominal pain?: No Are you experiencing loss of taste or smell?: No [facility] Anesthesia Checklist Patient Identification Patient Identification: Arm Band and Verbal (Name & ) Structural Data Admitted From: Home Planned Operative Procedure/s: Diagnostic laparoscopy, left salpingectomy Verified Documents: Surgical Consent NPO Status Verified Time NPO: 00:00 Chart Verification Results Verified: H & H Additional verifications Anesthesia Reactions: No Hx Blood Transfusions: No Blood Transfusion Reaction: No Airway Assessment Mallampati Score:: Class II C-Spine Mobility Assessed: Yes TMJ Mobility Assessed: Yes Dentition: Good Dentition Neurological Assessment Level of Consciousness: Awake, Alert and Appropriate Hx Seizures: No Numbness or tingling in extremities: No Anesthesia Plan Anesthesia Risk discussed: Yes Anesthesia Plan: Verified ASA Class: II Anesthesia Type: General Preoperative Comments Pre-Operative Comments: No changes since Sunday01-20-25
--- NOTE | 2025-01-22 08:36 | SUR.OPER ---
0805- Decision made by to do open Laparotomy. 0807- Laparoscopic table counted and is correct then table removed from the room. New major pack table with laparotomy items opened and counted. 98 main set, 4 clip appliers, 4 al jennifer, 20 laps, 20 rays, 3 blades, 2 hypos, 1 suture, 3 suction.
[2025-01-22 09:33] LABS: Microscopic,Cath URINE MICROSCOPIC (MICROSCOPIC)
[2025-01-22 09:42] LABS: Appearance,Urine/Cath CLEAR (Clear); Bilirubin,Cath Negative (Negative); Blood, Urine/Cath Negative (Negative); Color,Urine/Cath YELLOW (Yellow); Glucose,Urine/Cath (UA) Negative (Negative); Ketones,Urine/Cath Negative (Negative); Leukocyte Esterase,Cath Negative (Negative); Nitrate,Cath Negative (Negative); PH,Urine/Cath 6.0 (5.0-8.5); Protein,Urine/Cath Negative (Negative); Specific Gravity, Urine/Cath >= 1.030 (1.005-1.030); Urobilinogen,Cath 0.2 EU/dl (0.2)
--- NOTE | 2025-01-22 09:51 | EXP.ANES.I ---
[facility] Anesthesia Record Part I Anesthesia Record I Intake, IV Amount: 944 Hydration: Adequate Estimated blood loss (mL): 100 Urine output (mL): 100 Blood Products used (#): none Blood Pressure: 138/66 SaO2: 92 Pulse Rate: 111 Airway Patency: Patent Respiratory Rate: 14 Temperature: 97.0 F Patient is:: Drowsy, Nasal O2 and Stable Stable to PACU at:: 09:44
[2025-01-22] MEDS: MORPHINE 2MG/ML SYRINGE 2 MG IV (09:56)
[2025-01-22] MEDS: HYDROMORPHONE 2MG/ML SYRINGE 0.5 MG IV ×3 (10:05→10:19)
[2025-01-22] MEDS: ONDANSETRON 4MG/2ML VIAL 4 MG IV ×2 (10:10→17:21)
[2025-01-22] MEDS: KETOROLAC 30MG/ML VIAL 30 MG IV ×3 (10:26→21:15)
--- NOTE | 2025-01-22 10:43 | HMH.PHAINT1 ---
Pharmacy Intervention Comments: MEDICATION RECONCILIATION COMPLETED ON PATIENT USING EXTERNAL FILL HISTORY FROM PHARMACY. -ELISEO ROMERO, MICHAELLED
--- NOTE | 2025-01-22 11:03 | SUR.PHASEI ---
1044- Patient's VSS and pain now under control. Dressing has scant drainage noted that was noted on first assessment. patient tolerating ice chips. Detailed report called to Walker Richardson RN. 104- Pt transported to OB on bed. Pt's mother and father at bedside. RN at bedside. Pt stable.
[2025-01-22] MEDS: HYDROMORPHONE 2MG/ML SYRINGE 1 MG IV ×2 (11:41→17:22)
[2025-01-22] MEDS: ACETAMINOPHEN 500MG TAB 1000 MG PO ×2 (12:00→18:29)
[2025-01-22] MEDS: ESTRADIOL VALERATE 20 MG/ML VIAL 30 MG IM (13:55)
[2025-01-22] MEDS: HYDROMORPHONE 2MG/ML SYRINGE 2 MG IV ×2 (13:56→22:42)
[2025-01-22] MEDS: SIMETHICONE 80MG CHEWABLE TABLET 160 MG PO ×2 (14:27→22:43)
--- NOTE | 2025-01-22 16:45 | PC.NURSE ---
Pt assisted x1 assistance to the bathroom by nursing staff. Pts bed linens changed and trash taken out at this time.
[2025-01-22] MEDS: SENNOSIDES 8.6MG/DOCUSATE 50MG TABLET 1 TAB PO (17:21)
[2025-01-22] MEDS: LACTATED RINGERS 1000ML 1,000 ML 125 ML IV (17:27)
--- NOTE | 2025-01-22 19:00 | PC.NURSE ---
Report received from Matt Richardson RN
--- NOTE | 2025-01-22 19:35 | PC.NURSE ---
Pt ambulated to the bathroom with this RN and pt's mother present and offering assistance. Pt bracing her abdomen with a pillow. Pt then voided and ambulated back to bed, she tolerated this well and declines pain management at this time. Dr Turpin called the nurses station for an update on pt's status at this time, no new orders given.
[2025-01-22] MEDS: POLYETHYLENE GLYCOL 3350 17 GM PACKET PO (22:42)
[2025-01-23] VITALS (7 sets, daily range): BP systolic 99–129; BP diastolic 52–81; PULSE 64–95; RESP 16–18; TEMP 36.1–36.8; O2SAT 75–97
[2025-01-23] MEDS: KETOROLAC 30MG/ML VIAL 30 MG IV ×4 (03:06→20:38)
[2025-01-23] MEDS: 0.9 % SODIUM CHLORIDE 25 ML 100 ML IV (03:15)
[2025-01-23] MEDS: PROMETHAZINE HCL 25MG/ML 1ML VIAL 12.5 MG IV (03:15)
[2025-01-23] MEDS: OXYCODONE 5MG IMMEDIATE RELEASE TABLET 5 MG PO ×4 (04:42→22:44)
[2025-01-23] MEDS: ACETAMINOPHEN 500MG TAB 1000 MG PO ×3 (04:43→18:26)
[2025-01-23 05:40] LABS: Hematocrit 34.1 % (37.0-47.0); Hemoglobin 11.0 g/dL (12.2-16.2); Immature Granulocytes % 0.4 %; Mean Corpuscular HGB Conc 32.3 g/dL (31.8-35.4); Mean Corpuscular Hemoglobin 26.4 pg (27.0-31.2); Mean Corpuscular Volume 82.0 fl (81-99); Nucleated Red Blood Cells % 0 %; Platelet Count 275 K/mm3 (142-424); Red Blood Count 4.16 M/mm3 (4.20-5.40); Red Cell Distribution Width-SD 39.1 fL; White Blood Count 16.9 K/mm3 (4.8-10.8)
[2025-01-23 05:50] LABS: Anion Gap 16.0 mEq/L (5-15); Blood Urea Nitrogen 10 mg/dl (7-17); Calcium 9.1 mg/dl (8.4-10.2); Carbon Dioxide 26 mmol/L (22.0-30.0); Chloride 100 mmol/L (98-107); Creatinine Clearance Estimated 93 mL/min (50-200); Creatinine,Serum 0.80 mg/dl (0.52-1.04); Estimated Glomerular Filt Rate 82 ml/min (>60); GFR (African American) 99 ML/MIN (>60); Glucose 138 mg/dl (74-100); Potassium 4.0 mmoL/L (3.5-5.1); Sodium 138 mmol/L (136-145)
--- NOTE | 2025-01-23 06:57 | PC.NURSE ---
Report received from Shyanne Enriquez RN
--- NOTE | 2025-01-23 06:57 | PC.NURSE ---
Report given to Ignacio Mendoza RN
[2025-01-23] MEDS: POLYETHYLENE GLYCOL 3350 17 GM PACKET PO ×2 (08:12→22:50)
[2025-01-23] MEDS: SIMETHICONE 80MG CHEWABLE TABLET 160 MG PO ×2 (08:16→18:30)
--- NOTE | 2025-01-23 09:35 | EXP.ACUTE.PN ---
Subjective *Date: 01/23/25 *Time: 09:35 Interval history: She seems to be doing a lot better this morning. Her pain is better controlled. She is taking oral oxycodone now. She is also taking Toradol. She had a TAP block yesterday and this seems to be working well. She denies any chest pain, shortness of breath or calf tenderness. She has not really passed any gas but she has good bowel sounds. She is voiding on her own. Medical Exam Vital signs and Labs for Last 24 Hours: Vital Signs Temp Pulse Pulse Resp BP BP Pulse Ox 01/23/25 08:30 96 01/23/25 08:00 98.2 F 79 16 112/61 96 01/23/25 07:00 01/23/25 06:00 01/23/25 05:00 01/23/25 04:00 01/23/25 03:32 97.6 F 66 16 106/52 L 95 01/23/25 03:32 95 01/23/25 03:00 01/23/25 02:00 01/23/25 01:00 01/23/25 00:07 97.9 F 64 16 104/60 L 95 01/23/25 00:07 01/22/25 23:00 01/22/25 23:00 97 01/22/25 22:00 01/22/25 21:00 01/22/25 20:00 01/22/25 19:47 95 01/22/25 19:47 01/22/25 19:47 98.3 F 63 18 121/82 95 01/22/25 19:00 01/22/25 17:45 98.0 F 63 17 131/80 94 L 01/22/25 17:00 01/22/25 16:45 98.2 F 73 17 138/84 95 01/22/25 15:45 85 17 117/56 L 93 L 01/22/25 15:00 01/22/25 14:45 76 16 105/52 L 95 01/22/25 13:45 98.2 F 79 16 117/63 97 01/22/25 13:15 84 16 108/62 L 91 L 01/22/25 13:00 01/22/25 13:00 01/22/25 12:45 65 15 106/55 L 93 L 01/22/25 12:15 72 15 96/59 L 93 L 01/22/25 11:45 75 17 110/69 90 L 01/22/25 11:30 97.7 F 75 18 108/71 L 94 L 01/22/25 11:15 93 H 17 89/55 L 94 L 01/22/25 11:00 01/22/25 11:00 77 17 98/49 L 96 01/22/25 10:45 96.3 F L 72 16 115/68 96 01/22/25 10:45 96.3 F L 72 16 115/68 96 01/22/25 10:44 97.0 F L 75 17 120/75 95 01/22/25 10:34 97.0 F L 82 17 107/70 L 95 01/22/25 10:24 97.0 F L 98 H 18 138/92 H 97 01/22/25 10:14 97.0 F L 97 H 20 126/88 97 01/22/25 10:04 97.0 F L 94 H 20 105/88 L 97 01/22/25 09:54 97.0 F L 105 H 17 124/76 94 L 01/22/25 09:51 97.0 F L 111 H 14 138/66 01/22/25 09:44 97.0 F L 105 H 18 138/66 92 L O2 Del Method O2 Flow Rate 01/23/25 08:30 Room Air 01/23/25 08:00 Room Air 01/23/25 07:00 Room Air 01/23/25 06:00 Room Air 01/23/25 05:00 Room Air 01/23/25 04:00 Room Air 01/23/25 03:32 Room Air 01/23/25 03:32 Room Air 01/23/25 03:00 Room Air 01/23/25 02:00 Room Air 01/23/25 01:00 Room Air 01/23/25 00:07 Room Air 01/23/25 00:07 Room Air 01/22/25 23:00 Room Air 01/22/25 23:00 Room Air 01/22/25 22:00 Room Air 01/22/25 21:00 Room Air 01/22/25 20:00 Room Air 01/22/25 19:47 Room Air 01/22/25 19:47 Room Air 01/22/25 19:47 Room Air 01/22/25 19:00 Room Air 01/22/25 17:45 Room Air 01/22/25 17:00 Nasal Cannula 2 01/22/25 16:45 Room Air 01/22/25 15:45 Room Air 01/22/25 15:00 Nasal Cannula 2 01/22/25 14:45 Room Air 01/22/25 13:45 Nasal Cannula 2 01/22/25 13:15 Nasal Cannula 2 01/22/25 13:00 Room Air 01/22/25 13:00 Nasal Cannula 2 01/22/25 12:45 Nasal Cannula 2 01/22/25 12:15 Nasal Cannula 2 01/22/25 11:45 Nasal Cannula 2 01/22/25 11:30 Room Air 01/22/25 11:15 Room Air 01/22/25 11:00 Room Air 01/22/25 11:00 Room Air 01/22/25 10:45 Room Air 01/22/25 10:45 Room Air 01/22/25 10:44 Room Air 01/22/25 10:34 Room Air 01/22/25 10:24 Room Air 01/22/25 10:14 Room Air 01/22/25 10:04 Room Air 01/22/25 09:54 Room Air 01/22/25 09:51 01/22/25 09:44 Room Air Intake and Output 01/22/25 01/23/25 01/23/25 19:59 03:59 11:59 Output Total 2100 / 3900 1400 / 3900 400 / 3900 Balance -2100 / -3900 -1400 / -3900 -400 / -3900 Output: Output, Urine Amount 400 / 2200 1400 / 2200 400 / 2200 Output, Urine Amount (Catheter) 1700 / 1700 Harris 1700 / 1700 Laboratory Results - last 24 hr 01/22/25 08:10: Urine Color Yellow, Urine Appearance Clear, Urine pH 6.0, Ur Specific [place] >= 1.030, Urine Protein Negative, Urine Glucose (UA) Negative, Urine Ketones Negative, Urine Blood Negative, Urine Nitrate Negative, Urine Bilirubin Negative, Urine Urobilinogen 0.2, Ur Leukocyte Esterase Negative, Urine RBC None, Urine WBC None, Ur Squamous Epith Cells 3-5, Urine Bacteria None 01/23/25 04:29: WBC 16.9 H, RBC 4.16 L, Hgb 11.0 L, Hct 34.1 L, MCV 82.0, MCH 26.4 L, MCHC 32.3, RDW 13.2, Plt Count 275, MPV 10.1, Neut % (Auto) 85.9 H, Lymph % (Auto) 8.5 L, [place] % (Auto) 5.0, Eos % (Auto) 0.1, Baso % (Auto) 0.1, Neut # (Auto) 14.5 H, Lymph # (Auto) 1.4, [place] # (Auto) 0.8, Eos # (Auto) 0.0, Baso # (Auto) 0.0, Sodium 138, Potassium 4.0, Chloride 100, Carbon Dioxide 26, Anion Gap 16.0 H, BUN 10, Creatinine 0.80, Estimated Creat Clear 93, Estimated GFR 82, Est GFR ( Amer) 99, Glucose 138 H, Calcium 9.1 I & O for Labs for Last 24 Hours: Intake & Output 01/20/25 01/21/25 01/22/25 01/23/25 11:59 11:59 11:59 11:59 Intake Total 944 / 944 Output Total 3900 / 3900 Balance 944 / 944 -3900 / -3900 Weight 262 lb Constitutional: Present no acute distress Head: Present atraumatic ENT: Present normal exam Neck: Present normal inspection Respiratory: Present CTA bilaterally and normal respiratory effort; Absent accessory muscle use Cardiac: Present Reg Rate and Rhythm GI: Present normal bowel sounds; Absent tenderness Comments:: Her incision is clean and dry and we will change her dressing today. She has good bowel sounds Rectal (female): Present deferred (female): Present deferred Extremities: Present normal inspection and full ROM; Absent tenderness or calf tenderness Skin: Present intact; Absent erythema Neuro: Present Grossly Intact and moves all extremities Assessment and Plan *Assessment and plan (1) History of hernia repair: Status: Acute Category: Surgical Code(s): Z98.890 - Other specified postprocedural states; Z87.19 - Personal history of other diseases of the digestive system (2) Hemorrhagic cyst of right ovary: Status: Acute Category: Medical Code(s): N83.201 - Unspecified ovarian cyst, right side (3) Right ovarian cyst: Status: Acute Category: Medical Code(s): N83.201 - Unspecified ovarian cyst, right side (4) Right lower quadrant abdominal pain: Status: Acute Category: Medical Code(s): R10.31 - Right lower quadrant pain (5) Abdominal pain: Status: Acute Qualifiers: Abdominal location: right lower quadrant Qualified Code(s): R10.31 - Right lower quadrant pain Category: Medical Code(s): R10.9 - Unspecified abdominal pain (6) H/O hysterectomy with unilateral oophorectomy: Status: Acute Category: Surgical Code(s): Z90.710 - Acquired absence of both cervix and uterus; Z90.721 - Acquired absence of ovaries, unilateral (7) Chronic pelvic pain in female: Status: Acute Category: Medical Code(s): R10.2 - Pelvic and perineal pain; G89.29 - Other chronic pain (8) Endometriosis determined by laparoscopy: Status: Acute Category: Medical Code(s): N80.9 - Endometriosis, unspecified Plan She is doing much better this morning. She is eating and drinking and ambulating. She is voiding well. She has not had a bowel movement yet. She says she has not passed any gas. She does have good bowel sounds. Will plan to send her home tomorrow if she is doing well.
--- NOTE | 2025-01-23 11:25 | EXP.ANES.II ---
[facility] Anesthesia Record Part II Anesthesia Record Part II Discharge Time: 10:44 Destination: Obstetric PACU nurse assessment reviewed?: Yes Patient Condition:: Good Anesthesia Complications:: None Swallowing reflex intact?: Yes Airway Patency: Patent Cyanosis?: No Blood Pressure: 120/75 SaO2: 75 Respiratory Rate: 17 Pulse Rate: 95 Temperature: 97.0 F Mental Status: Alert & Oriented Pain level:: 5 Nausea and/or vomitting:: None Intake, IV Amount: 0 Hydration: Adequate
--- NOTE | 2025-01-23 16:59 | PC.NURSE ---
Patient laying in bed, lung sounds clear throughout bilaterally, bowel sounds active in all quadrants, patient has been voiding without difficulty, and stated she has passed some gas. patient got up and showered today, incision clean and dry, dressing was removed in shower, vitals have been stable. patient rates pain 4/10 at this time. Patient denies needs at this time.
[2025-01-23] MEDS: ONDANSETRON 4MG/2ML VIAL 4 MG IV (18:30)
--- NOTE | 2025-01-23 19:05 | PC.NURSE ---
Report given to Linette Shi RN
[2025-01-23] MEDS: SENNOSIDES 8.6MG/DOCUSATE 50MG TABLET 1 TAB PO (20:48)
[2025-01-24] MEDS: ACETAMINOPHEN 500MG TAB 1000 MG PO ×2 (00:29→06:36)
[2025-01-24 00:30] VITALS: BP 101/41; PULSE 70; RESP 17; TEMP 36.5; O2SAT 95
[2025-01-24] MEDS: PROMETHAZINE HCL 25MG/ML 1ML VIAL 12.5 MG IV (00:30)
[2025-01-24] MEDS: KETOROLAC 30MG/ML VIAL 30 MG IV (02:48)
[2025-01-24 05:00] VITALS: BP 130/78; PULSE 69; RESP 17; TEMP 36.4; O2SAT 98
[2025-01-24] MEDS: OXYCODONE 5MG IMMEDIATE RELEASE TABLET 5 MG PO (06:36)
[2025-01-24] MEDS: SIMETHICONE 80MG CHEWABLE TABLET 160 MG PO (06:37)
[2025-01-24 07:30] VITALS: BP 124/78; PULSE 68; RESP 22; TEMP 36.3; O2SAT 95
[2025-01-24] MEDS: POLYETHYLENE GLYCOL 3350 17 GM PACKET PO (08:14)
[2025-01-24] MEDS: SENNOSIDES 8.6MG/DOCUSATE 50MG TABLET 1 TAB PO (08:14)
[2025-01-24] MEDS: KETOROLAC 10MG TABLET 10 MG PO (08:32)
--- NOTE | 2025-01-24 09:07 | PC.NURSE ---
Dr. Turpin at bedside.
--- NOTE | 2025-01-24 09:14 | EXP.DC.SUM ---
General Admission date:: 01/22/25 Discharge date: 01/24/25 HPI HPI HPI: She is a 34-year-old lady has had a previous hysterectomy and LSO. She began having severe right lower quadrant pain and an ultrasound showed a 10 cm ovarian cyst along with a 4 cm hemorrhagic cyst within the ovary. She requested a right oophorectomy. Risk and benefits of surgery discussed with the patient prior to this. The need for lifelong hormone replacement therapy was also discussed with the patient. Hospital Course Hospital Course Hospital Course: On January 22, 2025 she underwent a laparoscopy with conversion to laparotomy. She has had a previous repair of her gastroschisis and umbilical hernia and we elected not to enter the abdominal cavity at the umbilicus. We attempted in the mid axillary line on the left side anteriorly below her ribs but were not able to get into the abdominal cavity. As result of that we elected to perform a laparotomy through a Pfannenstiel incision. On entry into the abdominal cavity she had adhesions of the ovary to the posterior and lateral right pelvic wall as well as to the bowel. This was easily dissected using both sharp and blunt dissection. There was a 10 cm ovarian cyst that was filled with serous fluid and this was drained and some of the fluid was sent to pathology. That is currently pending. Pathology on the ovary is currently pending. She underwent a right oophorectomy. She has done well postoperatively and has remained afebrile throughout her hospitalization. She is eating and drinking and ambulating. She is voiding well and has had a bowel movement this morning. She denies any chest pain, shortness of breath or calf tenderness. She will be discharged home today to follow-up with us in approximate 2-week's time. She was given the usual instructions with respect to limit her activity, driving and sexual activity. She was given instructions with respect to wound care and sent home with a small bottle of Hibiclens. She was given a prescription for Percocet 5/325 number 20 tablets as well as Toradol 10 mg to take every 6 hours as needed number 20 tablets. She will continue with her home medications. Her condition on discharge is stable and improved. Exam Data for Last 24 hours Vital signs and Labs for Last 24 Hours: Temp Pulse Resp BP Pulse Ox O2 Del Method O2 Flow Rate 97.4 F L 68 22 124/78 95 Room Air 2 01/24/25 07:30 01/24/25 07:30 01/24/25 07:30 01/24/25 07:30 01/24/25 07:30 01/24/25 09:09 01/22/25 17:00 I & O for Last 24 hours: Intake & Output 01/21/25 01/22/25 01/23/25 01/24/25 11:59 11:59 11:59 11:59 Intake Total 944 / 944 0 / 0 Output Total 4300 / 4300 300 / 300 Balance 944 / 944 -4300 / -4300 -300 / -300 Weight 262 lb Constitutional Constitutional: no acute distress *Routine HEENT Exam Head: Present normocephalic ENT: Present mucous membranes moist *Routine Neck Exam Neck: Present full ROM *Routine Respiratory Exam Respiratory: Present CTA bilaterally and normal respiratory effort; Absent accessory muscle use *Routine Cardiovascular Exam Cardiovascular: Present RRR *Routine Abdominal Exam Abdominal: Present soft, normoactive bowel sounds and wound; Absent tenderness or distended Comments: Her incision is clean and dry DS: Diagnosis Discharge Diagnosis (1) History of hernia repair: Status: Acute Code(s): Z98.890 - Other specified postprocedural states; Z87.19 - Personal history of other diseases of the digestive system (2) Hemorrhagic cyst of right ovary: Status: Acute Code(s): N83.201 - Unspecified ovarian cyst, right side (3) Right ovarian cyst: Status: Acute Code(s): N83.201 - Unspecified ovarian cyst, right side (4) Right lower quadrant abdominal pain: Status: Acute Code(s): R10.31 - Right lower quadrant pain (5) Abdominal pain: Status: Acute Code(s): R10.9 - Unspecified abdominal pain Qualifiers: Abdominal location: right lower quadrant Qualified Code(s): R10.31 - Right lower quadrant pain (6) H/O hysterectomy with unilateral oophorectomy: Status: Acute Code(s): Z90.710 - Acquired absence of both cervix and uterus; Z90.721 - Acquired absence of ovaries, unilateral (7) Chronic pelvic pain in female: Status: Acute Code(s): R10.2 - Pelvic and perineal pain; G89.29 - Other chronic pain (8) Endometriosis determined by laparoscopy: Status: Acute Code(s): N80.9 - Endometriosis, unspecified Meds Home Medications and Allergies Home Medications ?Medication ?Instructions ?Recorded ?Confirmed ?Type paroxetine HCl 40 mg tablet 40 mg PO DAILY 09/06/23 01/22/25 History trazodone 150 mg tablet 150 mg PO HS 01/14/25 01/22/25 History ketorolac 10 mg tablet 10 mg PO Q6H #20 tabs 01/24/25 Rx oxycodone-acetaminophen 5 mg-325 1 tab PO Q6H PRN pain #20 tabs 01/24/25 Rx mg tablet New Prescriptions to Start Prescriptions: ketorolac Vance Turpin oxycodone-acetaminophen Vance Turpin Allergies Allergy/AdvReac Type Severity Reaction Status Date / Time No Known Allergies Allergy Verified 01/22/25 06:51 Discharge Plan Disposition Patient Disposition: Home, Self-Care Discharge Order Discharge Orders: Discharge Order (Routine); Ordered 01/24/25 Ordered By: Vance Turpin Follow up Plan Prescriptions/Medication Reconciliation: New ketorolac 10 mg Tablet 10 mg PO Q6H Qty: 20 0RF oxycodone-acetaminophen 5-325 mg tablet 1 tab PO Q6H PRN (Reason: pain) Qty: 20 0RF Continued paroxetine HCl 40 mg tablet 40 mg PO DAILY trazodone 150 mg tablet 150 mg PO HS Patient Comments: TAKE ONE TABLET BY MOUTH AT BEDTIME FOR INSOMNIA Discontinued tramadol 50 mg tablet 50 mg PO BIDP PRN (Reason: Moderate Pain (Scale Score 5-6)) Problem Reconciliation Problems Reviewed?: Yes Patient Discharge Instructions ACTIVITY: No heavy lifting DIET: continue same diet Patient Instructions: DI for Oophorectomy, Surgical Site Infection Print Language: [place]ian Providers Primary Care Provider: Win Vance Admit Provider: Vance Tuprin Attending Provider: Vance Turpin
== END 2025-01-24 09:50 | disposition home or self-care (01) | DRG 743 ==
LOC: OB 10:39
PROVIDERS: Admitting Provider Nurse Practitioner Obstetrics & Gynecology; PCP Internal Medicine Adolescent Medicine; Visit Provider Nurse Practitioner Obstetrics & Gynecology
PROC: 0UT00ZZ Resection of Right Ovary, Open Approach (ICD-10-PCS; CPT 49320; principal; 2025-01-22 07:30)
DX: N83.201 Unspecified ovarian cyst, right side (principal); N73.6 Female pelvic peritoneal adhesions (postinfective); F17.200 Nicotine dependence, unspecified, uncomplicated; F41.9 Anxiety disorder, unspecified; F32.9 Major depressive disorder, single episode, unspecified; Z53.31 Laparoscopic surgical procedure converted to open procedure; Z79.899 Other long term (current) drug therapy
CPT/HCPCS: 36415; 51702; 80048; 81001; 85025; 96374; J0665; J0666; J0690; J1100; J1171; J1200; J1380; J1885; J2003; J2250; J2270; J2405; J2550; J2704; J3010; J7120